=== PATIENT | female | born 1940 | race Caucasian/White ===

== ENCOUNTER 2024-11-03 10:32 | Outpatient (CLI) | payer MEDICARE, SELFPAY ==
--- OUTSIDE RECORDS SUMMARY | 2023-10-29 05:30 | XMS_ITS ---
Author Organization [facility] Address [address] [facility] [address] [facility] [address] [place] [phone] Care Team Providers Care Manufacturing Engineer Name Role Phone Mathieu Chauhan Primary Care Provider [phone] Allergies Allergen (clinical drug ingredient) Drug/Non Drug Allergy documented on EMR Reaction Allergy Type Onset Date Status gabapentin Gabapentin upset stomach Drug Allergy A ctive Results Component Value Reference Range Notes Glucose (In-House) Reviewed date:10/30/2023 08:32:30 AM Interpretation:142 Performing Lab: Notes/Report: 142 blood glucose 142 74 - 106 mg/dL Glycohemoglobin A1c (in hous e) Reviewed date:10/30/2023 08:32:30 AM Interpretation:6.2 Performing Lab: Notes/Report: 6.2 glycohemoglobin 6.2% 5 - 6.5 % P-Comprehensive Metabolic Pa svitlana (CMP) Reviewed date:10/30/2023 08:32:30 AM Interpretation:gluc 100, bun 27, creat 1.16, gfr 47 Performing Lab: Notes/Report: Test performed by [employer] [facility] , [address], [place] [address] Arnulfo Metcalf MD, Library Media Technician CLIA: [id number] Sodium 139 135-145 mEq/L Potassium 4.6 3.5-5.3 mEq/L Chloride 103 97-108 mEq/L CO2 25 22-32 mEq/L Glucose 100 65-99 mg/dL BUN 27 8-23 mg/dL Creatinine 1.16 0.50-1.00 mg/dL Calcium 9.4 8.6-10.4 mg/dL eGFR by Creatinine 47 >59 mL/min/1.73m2 Protein 6.9 6.0-8.3 g/dL Albumin 4.5 3.5-5.3 g/dL Alkaline Phosphatase 78 35-121 IU/L ALT (SGPT) 31 <5-47 IU/L AST (SGOT) 27 <5-40 IU/L Bilirubin, Total 0.3 <0.2-1.2 mg/dL A/G Ratio 1.9 1.1-2.5 mg/dL P-Lipid Panel Reviewed date:10/30/2023 08:32:30 AM Interpretation:Normal Performing Lab: Notes/Report: Test performed by [employer] [address] [place] [address] , [facility], [place] [address] Arnulfo Metcalf MD, Library Media Technician CLIA: [id number] Cholesterol 130 <200 mg/dL Triglycerides 96 <150 mg/dL HDL Cholesterol 73 >39 mg/dL Cholesterol / HDL Ratio 1.78 0.00-4.44 Ratio Non-HDL Cholesterol 57 <130 mg/dL LDL Cholesterol (Calculation) 38 <130 mg/dL LDL Cholesterol Levels* Less than 100 mg/dL Optimal 100 to 129 mg/dL Near Optimal/ Above Optimal 130 to 159 mg/dL Borderline High 160 to 189 mg/dL High 190 mg/dL and above Very High * Categories as recommended by the 2004 ATPIII guidelines LDL/HDL Ratio 0.5 <3.3 Ratio LDL Cholesterol Patient History Test Date: 04/29/2023 LDL Results: 34 Units: mg/dL % Change: - Test Date: 10/29/2023 LDL Results: 38 Units: mg/dL % Change: +11% REASON FOR VISIT 6 months Medications Medication SIG (Take, Route, Frequency, Duration) Notes Start Date End Date Status Potassium Chloride ER 10 MEQ TAKE 1 TABLET 3 TIMES A DAY for 90 days Active Vitamin C 1000 MG 1 tab(s) orally once a day for 30 day(s) Active traMADol HCl 50 MG 2 tab(s) orally thre e times daily Active ZyrTEC Allergy 10 MG 1 tab(s) orally onc e a day Active Vitamin D3 125 MCG (5000 UT) as directed orally once a week Active Tylenol 8 Hour 650 MG 2 tablets as neede d Orally every 8 hrs Active Ocuvite Adult 50+ - as directed Orally Active Lisinopril-hydroCHLOROthiaz cristy 20-12.5 MG TAKE 2 TABLETS ONCE DAILY for 90 days Active amLODIPine Besylate 5 MG TAKE 1 TABLET O NCE DAILY for 90 days Active Atorvastatin Calcium 20 MG TAKE 1 TABLET ONCE DAILY for 90 days Active metFORMIN HCl 500 MG 1 tab(s) orally 2 t imes a day for 90 days Active Vital Signs Blood pressure systolic 132 mm Hg 10/29/19 24 Blood pressure diastolic 82 mm Hg 024 Heart Rate 70 /min 10/29/2023 Height 65.50 in 10/29/2023 Weight 177.4 lbs 10/29/2023 BMI 29.07 kg/m2 10/29/2023 Encounters Encounter Location Date Provider Diagnosis Jonathan [address] [facility] [address] [place] [id number] 10/29/2023 Mathieu Chauhan Type 2 diabetes jae itus without complication, without long-term current use of insulin E11.9 ; Essential hypertension I10 ; Pure hypercholesterolemia E78.00 and Hypokalemia E87.6 Assessments Encounter Date Diagnosis (ICD Code) Assessment Notes Treatment Notes Treatment Clinical Notes Section Notes 10/29/2023 Type 2 diabetes jae itus without complication, without long-term current use of insulin (ICD-10 - E11.9) 10/29/2023 Essential hypertensi on (ICD-10 - I10) 10/29/2023 Pure hypercholesterolemia (ICD-10 - E78.00) 10/29/2023 Hypokalemia (ICD-10 - E87.6) Plan Of Treatment Medication Medication Name Sig Start Date Stop Date Notes Potassium Chloride ER 10 MEQ TAKE 1 TABL ET 3 TIMES A DAY for 90 days Lisinopril-hydroCHLOROthiazi de 20-12.5 MG TAKE 2 TABLETS ONCE DAILY for 90 days amLODIPine Besylate 5 MG TAKE 1 TABLET O NCE DAILY for 90 days Atorvastatin Calcium 20 MG TAKE 1 TABLET ONCE DAILY for 90 days metFORMIN HCl 500 MG 1 tab(s) orally 2 t imes a day for 90 days Next Appt Details Follow Up: 6 Months, Reason: Provider Name:Mathieu rhodes, 11/03/2024 10:00:00 AM, [address] [place] [address], [address], [place], [place], [id number], Provider Name:Mathieu rhodes, 05/05/2025 10:30:00 AM, [address] [place] [address] [address] [facility], [address], [place], [place], [phone], Progress Notes * Collette BLACKMANDOB:1940 (83 yo F)Acc No.[id number]:10/29/2023 Progress Notes Patient: Colletet Priest EA Provider: Lou Chauhan M.D. :1940 A ge:82 Y S ex:Female Date:10/29/2023 Address:[address] [place], [place] [id number] Subjective: * Chief Complaints: * 1 . 6 months. * HPI: C ardiology: 82 year old female presents with c/o Blood Pressure Elevated?Pt here for 6 mo f/u on hypertension, states she is doing well and does not have any concerns.? c/o Hyperlipidemia p t is fasting today. E ndocrinology: c/o Recent Blood Sugars P t here to f/u on DM 2. * ROS: D ERMATOLOGY: no R donn. n o H arlene. G ASTROENTEROLOGY: no N ausea. n o V omiting. U ROLOGY: no D ifficulty urinating. n o B lood in urine. 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 Jolley - [facility] [place], Hypertension, Hyperlipidemia, Diabetes Type 2, Seasonal Allergies, Arthritis, multiple joints, Anxiety disorder, Multiple right humerus fractures due to Lymphoma, s/p multiple surgical procedures. * Surgical History: T onsillectomy , Hysterectomy , Bilateral Cataract Repair - YAG Laser , RT Shoulder Replacement , RT Arm Lymphoma x3 . * Hospitalization/Major Diagno stic Procedure: D enies Past Hospitalization. * Family History: F ather: , diagnosed with Heart Disease, Cancer. M other: , diagnosed with Hypertension, Stroke. C hilcindy: alive. 2 daughter(s) . . * Social History: C URRENT TOBACCO USE: No . C affeine: Coffee, Iced Tea. Past smoking status: never smoked. * Medications: T aking Ocuvite Adult 50+ - Capsule as directed Orally , Taking Tylenol 8 Hour 650 MG Tablet Extended Release 2 tablets as needed Orally every 8 hrs , Taking ZyrTEC Allergy 10 MG Tablet 1 tab(s) orally once a day , Taking Vitamin D3 125 MCG (5000 UT) Capsule as directed orally once a week , Taking Vitamin C 1000 MG Tablet 1 tab(s) orally once a day , Taking traMADol HCl 50 MG Tablet 2 tab(s) orally three times daily , Taking Atorvastatin Calcium 20 MG Tablet TAKE 1 TABLET ONCE DAILY , Taking Lisinopril-hydroCHLOROthiazide 20-12.5 MG Tablet TAKE 2 TABLETS ONCE DAILY , Taking amLODIPine Besylate 5 MG Tablet TAKE 1 TABLET ONCE DAILY , Taking Potassium Chloride ER 10 MEQ Tablet Extended Release TAKE 1 TABLET 3 TIMES A DAY , Taking metFORMIN HCl 500 MG Tablet 1 tab(s) orally 2 times a day , Medication List reviewed and reconciled with the patient * Allergies: G abapentin: upset stomach. Objective: * Vitals: W t:177.4, Temp:97.8, BP:132/82, HR:70, Nurse:fern, Ht: 65.50, BMI:29.07. * Examination: E ndocrinology: General Appearance: N AD, using a cane to assist with ambulation. Heart: R SR. Lungs: c lear to auscultation. Extremities: n o leg edema. Skin: n ormal, no rash. Assessment: * Assessment: 1. T ype 2 diabetes mellitus without complication, without long-term current use of insulin - E11.9 (Primary) 2 . E ssential hypertension - I10 3 . P ure hypercholesterolemia - E78.00 4 . H ypokalemia - E87.6 Plan: * Treatment: Value Reference Range A /G Ratio 1.9 1.1-2.5 - mg/dL * A lbumin 4.5 3.5-5.3 - g/dL * A lkaline Phosphatase 78 35-121 - IU/L * A LT (SGPT) 31 <5-47 - IU/L * A ST (SGOT) 27 <5-40 - IU/L * B ilirubin, Total 0.3 <0.2-1.2 - mg/dL * B UN 27 H 8-23 - mg/dL * C alcium 9.4 8.6-10.4 - mg/dL * C hloride 103 97-108 - mEq/L * C O2 25 22-32 - mEq/L * C reatinine 1.16 H 0.50-1.00 - mg/dL * G lucose 100 H 65-99 - mg/dL * P otassium 4.6 3.5-5.3 - mEq/L * S odium 139 135-145 - mEq/L * P rotein 6.9 6.0-8.3 - g/dL * e GFR by Creatinine 47 L >59 - mL/min/1.73m2 * Tricia Mayberry 10/30/2023 8:31: 42 AM >See phone encounter ?LAB: Glucose (In-House) (Collection Date & Time - 10/29/2023)?142* Value Reference Range b lood glucose 142 74 - 106 mg/dL * Ping Sparks 10/29/2023 10:1 8:40 AM > Tricia Mayberry 10/30/2023 8:31:42 AM >See phone encounter ?LAB: Glycohemoglobin A1c (in house) (Collection Date & Time - 10/29/2023)? 6.2* Value Reference Range g lycohemoglobin 6.2% 5 - 6.5 % * Ping Sparks 10/29/2023 10:1 8:56 AM > Tricia Mayberry 10/30/2023 8:31:42 AM >See phone encounter 2.?Essential hypertension? Refill Lisinopril-hydroCHLOROthiazide Tablet, 20-12.5 MG, TAKE 2 TABLETS ONCE DAILY, 90 days, 180 Tablet, Refills 1;?Refill amLODIPine Besylate Tablet, 5 MG, TAKE 1 TABLET ONCE DAILY, 90 days, 90 Tablet, Refills 1.?LAB: P-Comprehensive Metabolic Panel (CMP) (Collection Date & Time - 10/29/2023 09:10 AM)?gluc 100, bun 27, creat 1.16, gfr 47* Value Reference Range A /G Ratio 1.9 1.1-2.5 - mg/dL * A lbumin 4.5 3.5-5.3 - g/dL * A lkaline Phosphatase 78 35-121 - IU/L * A LT (SGPT) 31 <5-47 - IU/L * A ST (SGOT) 27 <5-40 - IU/L * B ilirubin, Total 0.3 <0.2-1.2 - mg/dL * B UN 27 H 8-23 - mg/dL * C alcium 9.4 8.6-10.4 - mg/dL * C hloride 103 97-108 - mEq/L * C O2 25 22-32 - mEq/L * C reatinine 1.16 H 0.50-1.00 - mg/dL * G lucose 100 H 65-99 - mg/dL * P otassium 4.6 3.5-5.3 - mEq/L * S odium 139 135-145 - mEq/L * P rotein 6.9 6.0-8.3 - g/dL * e GFR by Creatinine 47 L >59 - mL/min/1.73m2 * Tricia Mayberry 10/30/2023 8:31: 42 AM >See phone encounter 3.?Pure hypercholesterolemia? Refill Atorvastatin Calcium Tablet, 20 MG, TAKE 1 TABLET ONCE DAILY, 90 days, 90 Tablet, Refills 1. ?LAB: P-Comprehensive Metabolic Panel (CMP) (Collection Date & Time - 10/29/2023 09:10 AM)?gluc 100, bun 27, creat 1.16, gfr 47* Value Reference Range A /G Ratio 1.9 1.1-2.5 - mg/dL * A lbumin 4.5 3.5-5.3 - g/dL * A lkaline Phosphatase 78 35-121 - IU/L * A LT (SGPT) 31 <5-47 - IU/L * A ST (SGOT) 27 <5-40 - IU/L * B ilirubin, Total 0.3 <0.2-1.2 - mg/dL * B UN 27 H 8-23 - mg/dL * C alcium 9.4 8.6-10.4 - mg/dL * C hloride 103 97-108 - mEq/L * C O2 25 22-32 - mEq/L * C reatinine 1.16 H 0.50-1.00 - mg/dL * G lucose 100 H 65-99 - mg/dL * P otassium 4.6 3.5-5.3 - mEq/L * S odium 139 135-145 - mEq/L * P rotein 6.9 6.0-8.3 - g/dL * e GFR by Creatinine 47 L >59 - mL/min/1.73m2 * Tricia Mayberry 10/30/2023 8:31: 42 AM >See phone encounter ?LAB: P-Lipid Panel (Collection Date & Time - 10/29/2023 09:10 AM)?Normal* Value Reference Range C holesterol / HDL Ratio 1.78 0.00-4.44 - Ratio * C holesterol 130 <200 - mg/dL * H DL Cholesterol 73 >39 - mg/dL * L DL Cholesterol (Calculation) 38 <130 - mg/d L * L DL/HDL Ratio 0.5 <3.3 - Ratio * N on-HDL Cholesterol 57 <130 - mg/dL * T riglycerides 96 <150 - mg/dL * Tricia Mayberry 10/30/2023 8:31: 42 AM >See phone encounter 4.?Hypokalemia? Refill Potassium Chloride ER Tablet Extended Release, 10 MEQ, TAKE 1 TABLET 3 TIMES A DAY, 90 days,270 Tablet, Refills 1.?LAB: P-Comprehensive Metabolic Panel (CMP) (Collection Date & Time - 10/29/2023 09:10 AM)?gluc 100, bun 27, creat 1.16, gfr 47* Value Reference Range A /G Ratio 1.9 1.1-2.5 - mg/dL * A lbumin 4.5 3.5-5.3 - g/dL * A lkaline Phosphatase 78 35-121 - IU/L * A LT (SGPT) 31 <5-47 - IU/L * A ST (SGOT) 27 <5-40 - IU/L * B ilirubin, Total 0.3 <0.2-1.2 - mg/dL * B UN 27 H 8-23 - mg/dL * C alcium 9.4 8.6-10.4 - mg/dL * C hloride 103 97-108 - mEq/L * C O2 25 22-32 - mEq/L * C reatinine 1.16 H 0.50-1.00 - mg/dL * G lucose 100 H 65-99 - mg/dL * P otassium 4.6 3.5-5.3 - mEq/L * S odium 139 135-145 - mEq/L * P rotein 6.9 6.0-8.3 - g/dL * e GFR by Creatinine 47 L >59 - mL/min/1.73m2 * Tricia Mayberry 10/30/2023 8:31: 42 AM >See phone encounter * Procedure Codes: G 2211 Complex e/[place], [address] GLUCOSE TEST, 64013 GLYCATED HEMOGLOBIN TEST, Modifiers: QW * Follow Up: 6 Months * Billing Information: * Visit Code: 13241 Office Visit, Est Pt., Level 4. * Procedure Codes: G2211 Complex e/[place]. [address] GLUCOSE TEST. 10210 GLYCATED HEMOGLOBIN TEST. Modifiers: QW * Electronic signature of Katie Chauhan MD on 11/03/2024 at 10:43 AM EDT Sign off status: Pending * Provider: Lou Chauhan M.D. Date: 0 10/29/2023 Generated for Miky saeed/Oziel/Bertram on: 0 11/03/2024 10:43 AM EDT History and Physical Notes * HPI (History of Present Illness) Category Sub-Category Detail Notes Category Not es Endocrinology Recent Blood Sugars Pt here to f/u on DM 2 Cardiology Blood Pressure Elevated Pt here for 6 mo f/u on hypertension, states she is doing well and does not have any concerns Hyperlipidemia pt is fasting today Examination Category Sub-Category Detail Notes Category Not es Endocrinology Heart: RSR Lungs: clear to auscultatio n Extremities: no leg edema General Appearance: NAD, using a cane to assist with ambulation Skin: normal, no rash
--- OUTSIDE RECORDS SUMMARY | 2024-04-30 06:15 | XMS_ITS ---
[facility] [address] [facility] [address] [facility] [address] [place] [id number] Care Team Providers Care Enterprise Account Manager Name Role Phone Mathieu Chauhan Primary Care Provider Allergies Allergen (clinical drug ingredient) Drug/Non Drug Allergy documented on EMR Reaction Allergy Type Onset Date Status gabapentin Gabapentin upset stomach Drug Allergy A ctive Results Component Value Reference Range Notes Glucose (In-House) Reviewed date:05/05/2024 09:00:25 AM Interpretation:128 Performing Lab: Notes/Report: 128 blood glucose 128 74 - 106 mg/dL Glycohemoglobin A1c (in hous e) Reviewed date:05/05/2024 09:00:25 AM Interpretation:6.4 Performing Lab: Notes/Report: 6.4 glycohemoglobin 6.4% 5 - 6.5 % P-Comprehensive Metabolic Pa svitlana (CMP) Reviewed date:05/05/2024 09:00:25 AM Interpretation:Cr 1.11, gfr 50 Performing Lab: Notes/Report: Test performed by [employer] [address] [place] [address] , [address], [place] [address] Arnulof Metcalf MD, [employer] CLIA: [id number] Sodium 137 135-145 mmol/L Potassium 4.5 3.5-5.3 mmol/L Chloride 101 97-108 mmol/L CO2 26 22-32 mmol/L Glucose 96 65-99 mg/dL BUN 21 8-23 mg/dL Creatinine 1.11 0.50-1.00 mg/dL Calcium 9.6 8.6-10.4 mg/dL eGFR by Creatinine 50 >59 mL/min/1.73m2 Protein 7.2 6.0-8.3 g/dL Albumin 4.3 3.5-5.3 g/dL Alkaline Phosphatase 76 35-121 IU/L ALT (SGPT) 26 <5-47 IU/L AST (SGOT) 19 <5-40 IU/L Bilirubin, Total 0.3 <0.2-1.2 mg/dL A/G Ratio 1.5 1.1-2.5 P-Lipid Panel Reviewed date:05/05/2024 09:00:25 AM Interpretation: Normal Performing Lab: Notes/Report: Test performed by [facility] [facility] [address] [place] [address] , [address], [place] [address] Arnulfo Metcalf MD, [employer] CLIA: [id number] Cholesterol 121 <200 mg/dL Triglycerides 121 <150 mg/dL HDL Cholesterol 72 >39 mg/dL Cholesterol / HDL Ratio 1.68 0.00-4.44 Ratio Non-HDL Cholesterol 49 <130 mg/dL LDL Cholesterol (Calculation) 25 <130 mg/dL LDL Cholesterol Levels* Less than 100 mg/dL Optimal 100 to 129 mg/dL Near Optimal/ Above Optimal 130 to 159 mg/dL Borderline High 160 to 189 mg/dL High 190 mg/dL and above Very High * Categories as recommended by the 2004 ATPIII guidelines LDL/HDL Ratio 0.3 <3.3 Ratio LDL Cholesterol Patient History Test Date: 04/29/2023 LDL Results: 34 Units: mg/dL % Change: - Test Date: 10/29/2023 LDL Results: 38 Units: mg/dL % Change: +11% Test Date: 04/30/2024 LDL Results: 25 Units: mg/dL % Change: -34% P-TSH reflex to FT4 Reviewed date:05/05/2024 09:00:25 AM Interpretation: Normal Performing Lab: Notes/Report: Test performed by [facility] [facility] [address] [place] [address] , [address], [place] [address] Arnulfo Metcalf MD, [employer] CLIA: [id number] TSH reflex to FT4 1.37 0.43-5.25 mU/L P-Microalbumin/Creatinine, R andom Urine Sample Reviewed date:05/05/2024 09:00:25 AM Interpretation:a/c 30 Performing Lab: Notes/Report: Test performed by [employer] [address] [place] [address] , [address], [place] [address] Arnulfo Metcalf MD, [employer] CLIA: [id number] Albumin/Creatinine Ratio, Urine 30 0-30 ug/m g Microalbumin, Urine, Random 1.1 Creatinine, Urine 36.4 REASON FOR VISIT 6 months Medications Medication SIG (Take, Route, Frequency, Duration) Notes Start Date End Date Status traMADol HCl 50 MG 2 tab(s) orally thre e times daily Active Vitamin C 1000 MG 1 tab(s) orally once a day for 30 day(s) Active Lisinopril-hydroCHLOROthiaz cristy 20-12.5 MG TAKE 2 TABLETS ONCE DAILY for 90 days Active Atorvastatin Calcium 20 MG TAKE 1 TABLET ONCE DAILY for 90 days Active metFORMIN HCl 500 MG 1 tab(s) orally 2 t imes a day for 90 days Active Vitamin D3 125 MCG (5000 UT) as directed orally once a week Active Potassium Chloride ER 10 MEQ TAKE 1 TABLET 3 TIMES A DAY for 90 days Active ZyrTEC Allergy 10 MG 1 tab(s) orally onc e a day Active Tylenol 8 Hour 650 MG 2 tablets as neede d Orally every 8 hrs Active Ocuvite Adult 50+ - as directed Orally Active amLODIPine Besylate 5 MG TAKE 1 TABLET O NCE DAILY for 90 days Active Vital Signs Blood pressure systolic 128 mm Hg 04/30/20 24 Blood pressure diastolic 82 mm Hg 024 Heart Rate 78 /min 04/30/2024 Height 65.50 in 04/30/2024 Weight 177.4 lbs 04/30/2024 BMI 29.07 kg/m2 04/30/2024 Encounters Encounter Location Date Provider Diagnosis [facility] [address] [facility] [address] [place], [place] [id number] 04/30/2024 Mathieu Chauhan Type 2 diabetes jae itus without complication, without long-term current use of insulin E11.9 ; Essential hypertension I10 ; Pure hypercholesterolemia E78.00 ; Allergic rhinitis, unspecified seasonality, unspecified trigger J30.9 and Hypokalemia E87.6 Assessments Encounter Date Diagnosis (ICD Code) Assessment Notes Treatment Notes Treatment Clinical Notes Section Notes 04/30/2024 Type 2 diabetes jae itus without complication, without long-term current use of insulin (ICD-10 - E11.9) 04/30/2024 Essential hypertensi on (ICD-10 - I10) 04/30/2024 Pure hypercholesterolemia (ICD-10 - E78.00) 04/30/2024 Allergic rhinitis, unspecified seasonality, unspecified trigger (ICD-10 - J30.9) 04/30/2024 Hypokalemia (ICD-10 - E87.6) Plan Of Treatment Medication Medication Name Sig Start Date Stop Date Notes Lisinopril-hydroCHLOROthiazi de 20-12.5 MG TAKE 2 TABLETS ONCE DAILY for 90 days Atorvastatin Calcium 20 MG TAKE 1 TABLET ONCE DAILY for 90 days metFORMIN HCl 500 MG 1 tab(s) orally 2 t imes a day for 90 days Potassium Chloride ER 10 MEQ TAKE 1 TABL ET 3 TIMES A DAY for 90 days amLODIPine Besylate 5 MG TAKE 1 TABLET O NCE DAILY for 90 days Next Appt Details Follow Up: 6 Months, Reason: Provider Name:Mathieu Torres meagan, 11/03/2024 10:00:00 AM, [address] [facility] [address], [address], [place], [place], [id number], Provider Name:Mathieu Torres meagan, 05/05/2025 10:30:00 AM, [address] [facility] [address] [facility], [address], [place], [place], [id number], Progress Notes * Collette BLACKMANDOB:1940 (83 yo F)Acc No.[id number]:04/30/2024 Progress Notes Patient: Collette Priest EA Provider: Lou Chauhan M.D. :1940 A ge:83 Y S ex:Female Date:04/30/2024 Address:[address] [place] [address] Subjective: * Chief Complaints: * 1 . 6 months. * HPI: C ardiology: 83 year old female presents with c/o Blood Pressure Elevated?Pt here for 6 mo f/u on hypertension, states she is doing well and does not have any concerns.? c/o Hyperlipidemia P t is fasting today. E ndocrinology: c/o Recent Blood Sugars P t here to f/u on DM 2, pt states that she does not check blood sugar at home. * ROS: D ERMATOLOGY: no R donn. n o H arlene. G ASTROENTEROLOGY: no N ausea. n o V omiting. U ROLOGY: no D ifficulty urinating. n o B lood in urine. 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 Jolley - [facility] [place], Hypertension, Hyperlipidemia, Diabetes Type 2, Seasonal [...] tab(s) orally three times daily , Taking metFORMIN HCl 500 MG Tablet 1 tab(s) orally 2 times a day , Taking Atorvastatin Calcium 20 MG Tablet TAKE 1 TABLET ONCE DAILY , Taking Lisinopril-hydroCHLOROthiazide 20-12.5 MG Tablet TAKE 2 TABLETS ONCE DAILY , Taking amLODIPine Besylate 5 MG Tablet TAKE 1 TABLET ONCE DAILY , Taking Potassium Chloride ER 10 MEQ Tablet Extended Release TAKE 1 TABLET 3 TIMES A DAY , Medication List reviewed and reconciled with the patient * Allergies: G abapentin: upset stomach. Objective: * Vitals: W t:177.4, Temp:97.7, BP:128/82, HR:78, Nurse:fern, Ht: 65.50, BMI:29.07. * Examination: E [...] P ure hypercholesterolemia - E78.00 4 . A llergic rhinitis, unspecified seasonality, unspecified trigger - J30.9 5 . H ypokalemia - E87.6 Plan: * Treatment: Value Reference Range A /G Ratio 1.5 1.1-2.5 - * A lbumin 4.3 3.5-5.3 - g/dL * A lkaline Phosphatase 76 35-121 - IU/L * A LT (SGPT) 26 <5-47 - IU/L * A ST (SGOT) 19 <5-40 - IU/L * B ilirubin, Total 0.3 <0.2-1.2 - mg/dL * B UN 21 8-23 - mg/dL * C alcium 9.6 8.6-10.4 - mg/dL * C hloride 101 97-108 - mmol/L * C O2 26 22-32 - mmol/L * C reatinine 1.11 H 0.50-1.00 - mg/dL * G lucose 96 65-99 - mg/dL * P otassium 4.5 3.5-5.3 - mmol/L * S odium 137 135-145 - mmol/L * P rotein 7.2 6.0-8.3 - g/dL * e GFR by Creatinine 50 L >59 - mL/min/1.73m2 * Eneida Ellis 05/05/2024 9:00 :21 AM >See phone encounter ?LAB: P-TSH reflex to FT4 (Collection Date & Time - 04/30/2024 11:06 AM)? Normal* Value Reference Range T SH reflex to FT4 1.37 0.43-5.25 - mU/L * Eneida Ellis 05/05/2024 9:00 :21 AM >See phone encounter ?LAB: P-Microalbumin/Creatinine, Random Urine Sample (Collection Date & Time - 04/30/2024 11:06 AM)?a/c 30* Value Reference Range A lbumin/Creatinine Ratio, Urine 30 H 0-30 - ug /mg * C reatinine, Urine 36.4 - mg/dL * M icroalbumin, Urine, Random 1.1 - mg/dL * Eneida Ellis 05/05/2024 9:00 :21 AM >See phone encounter ?LAB: Glucose (In-House) (Collection Date & Time - 04/30/2024)?128* Value Reference Range b lood glucose 128 74 - 106 mg/dL * Diandra Be 04/30/2024 1:30:21 PM > CalebEneida 05/05/2024 9:00:21 AM >See phone encounter ?LAB: Glycohemoglobin A1c (in house) (Collection Date & Time - 04/30/2024)? 6.4* Value Reference Range g lycohemoglobin 6.4% 5 - 6.5 % * Diandra Be 04/30/2024 1:31:48 PM > Eneida Ellis 05/05/2024 9:00:21 AM >See phone encounter 2.?Essential hypertension? Refill Lisinopril-hydroCHLOROthiazide Tablet, 20-12.5 MG, TAKE 2 TABLETS ONCE DAILY, 90 days, 180 Tablet, Refills 1;?Refill amLODIPine Besylate Tablet, 5 MG, TAKE 1 TABLET ONCE DAILY, 90 days, 90 Tablet, Refills 1.?LAB: P-Comprehensive Metabolic Panel (CMP) (Collection Date & Time - 04/30/2024 11:06 AM)?Cr 1.11, gfr 50* Value Reference Range A /G Ratio 1.5 1.1-2.5 - * A lbumin 4.3 3.5-5.3 - g/dL * A lkaline Phosphatase 76 35-121 - IU/L * A LT (SGPT) 26 <5-47 - IU/L * A ST (SGOT) 19 <5-40 - IU/L * B ilirubin, Total 0.3 <0.2-1.2 - mg/dL * B UN 21 8-23 - mg/dL * C alcium 9.6 8.6-10.4 - mg/dL * C hloride 101 97-108 - mmol/L * C O2 26 22-32 - mmol/L * C reatinine 1.11 H 0.50-1.00 - mg/dL * G lucose 96 65-99 - mg/dL * P otassium 4.5 3.5-5.3 - mmol/L * S odium 137 135-145 - mmol/L * P rotein 7.2 6.0-8.3 - g/dL * e GFR by Creatinine 50 L >59 - mL/min/1.73m2 * Eneida Ellis 05/05/2024 9:00 :21 AM >See phone encounter 3.?Pure hypercholesterolemia? Refill Atorvastatin Calcium Tablet, 20 MG, TAKE 1 TABLET ONCE DAILY, 90 days, 90 Tablet, Refills 1. ?LAB: P-Comprehensive Metabolic Panel (CMP) (Collection Date & Time - 04/30/2024 11:06 AM)?Cr 1.11, gfr 50* Value Reference Range A /G Ratio 1.5 1.1-2.5 - * A lbumin 4.3 3.5-5.3 - g/dL * A lkaline Phosphatase 76 35-121 - IU/L * A LT (SGPT) 26 <5-47 - IU/L * A ST (SGOT) 19 <5-40 - IU/L * B ilirubin, Total 0.3 <0.2-1.2 - mg/dL * B UN 21 8-23 - mg/dL * C alcium 9.6 8.6-10.4 - mg/dL * C hloride 101 97-108 - mmol/L * C O2 26 22-32 - mmol/L * C reatinine 1.11 H 0.50-1.00 - mg/dL * G lucose 96 65-99 - mg/dL * P otassium 4.5 3.5-5.3 - mmol/L * S odium 137 135-145 - mmol/L * P rotein 7.2 6.0-8.3 - g/dL * e GFR by Creatinine 50 L >59 - mL/min/1.73m2 * Eneida Ellis 05/05/2024 9:00 :21 AM >See phone encounter ?LAB: P-Lipid Panel (Collection Date & Time - 04/30/2024 11:06 AM)?Normal* Value Reference Range C holesterol / HDL Ratio 1.68 0.00-4.44 - Ratio * C holesterol 121 <200 - mg/dL * H DL Cholesterol 72 >39 - mg/dL * L DL Cholesterol (Calculation) 25 <130 - mg/d L * L DL/HDL Ratio 0.3 <3.3 - Ratio * N on-HDL Cholesterol 49 <130 - mg/dL * T riglycerides 121 <150 - mg/dL * Eneida Ellis 05/05/2024 9:00 :21 AM >See phone encounter 4.?Hypokalemia? Refill Potassium Chloride ER Tablet Extended Release, 10 MEQ, TAKE 1 TABLET 3 TIMES A DAY, 90 days,270 Tablet, Refills 1.?? * Procedure Codes: G 2211 Complex e/[place], [address] GLUCOSE TEST, 01866 GLYCATED HEMOGLOBIN TEST, Modifiers: QW * Follow Up: 6 Months * Billing Information: * Visit Code: 23340 Office Visit, Est Pt., Level 4. * Procedure Codes: G2211 Complex e/[place]. [address] GLUCOSE TEST. 36979 GLYCATED HEMOGLOBIN TEST. Modifiers: QW * Electronic signature of Katie Chauhan MD on 11/03/2024 at 10:44 AM EDT Sign off status: Pending * Provider: Lou Chauhan M.D. Date: 1 07/01/2023 Generated for Miky saeed/Oziel/Gillianransmitting on: 0 11/03/2024 10:44 AM EDT History and Physical Notes * HPI (History of Present Illness) Category Sub-Category Detail Notes Category Not es Endocrinology Recent Blood Sugars Pt here to f /u on DM 2, pt states that she does not check blood sugar at home Cardiology Blood Pressure Elevated Pt here for 6 mo f/u on hypertension, states she is doing well and does not have any concerns Hyperlipidemia Pt is fasting today Examination Category Sub-Category Detail Notes Category Not es Endocrinology Heart: RSR Lungs: clear to auscultatio n Extremities: no leg edema General Appearance: NAD, using a cane to assist with ambulation Skin: normal, no rash
--- OUTSIDE RECORDS SUMMARY | 2024-11-03 10:43 | XMS_ITS ---
Author Name Interface, [id number] l[employer] Address [address] [place] [address] Organization [facility] Address [address] [place] [address] Care Team Providers Care Database Admin Name Role Phone Vinicio Levy Unavailable Allergies and Adverse Reactions Medication/Group Name Reaction Severity Date gabapentin 01/19/2019 Plan Date Type Value 03/04/2022 APPOINTMENT OV 15 MIN 03/04/2022 APPOINTMENT LAB 15 MIN 02/26/2021 APPOINTMENT Lab 02/26/2021 APPOINTMENT OV 15 MIN 02/26/2021 APPOINTMENT LAB 15 MIN 02/01/2021 APPOINTMENT OV 15 MIN 02/01/2021 APPOINTMENT OV 15 MIN 02/01/2021 APPOINTMENT LAB 15 MIN 02/01/2021 APPOINTMENT 1YR JERRY 02/02/2020 APPOINTMENT 1YR FU AND LAB 02/02/2020 APPOINTMENT 1YR FU AND LAB 02/02/2020 APPOINTMENT RTC 02/02/2020 APPOINTMENT Lab 02/02/2019 APPOINTMENT MD FU 1 Year 02/02/2019 APPOINTMENT FU 1 Year 02/02/2019 APPOINTMENT FU 1 Year 02/02/2019 APPOINTMENT MD LEMUS 1 Year 01/19/2019 APPOINTMENT port flush 11/24/2018 APPOINTMENT port flush 10/13/2018 APPOINTMENT Port Flush 10/13/2018 APPOINTMENT Port Flush 09/22/2018 APPOINTMENT port flush 08/11/2018 APPOINTMENT PORT FLUSH 08/11/2018 APPOINTMENT PORT FLUSH 06/23/2018 APPOINTMENT pf 06/23/2018 APPOINTMENT pf 05/05/2018 APPOINTMENT port flush 05/05/2018 APPOINTMENT port flush 04/28/2018 APPOINTMENT Port Flush 03/17/2018 APPOINTMENT PORT FLUSH 03/17/2018 APPOINTMENT PORT FLUSH 02/03/2018 APPOINTMENT fu (Lizet pt) 02/03/2018 APPOINTMENT fu (Lizet pt) 02/03/2018 APPOINTMENT follow up + pf 02/03/2018 APPOINTMENT follow up + pf 02/03/2018 APPOINTMENT follow up + pf 01/20/2018 APPOINTMENT PORT FLUSH 01/20/2018 APPOINTMENT PORT FLUSH 12/02/2017 APPOINTMENT port flush 10/07/2017 APPOINTMENT port flush 08/13/2017 APPOINTMENT port flush 08/13/2017 APPOINTMENT 1 YR F/Babita 08/13/2017 APPOINTMENT 1 YR MD Nagy/Babita 08/12/2017 APPOINTMENT PORT FLUSH 08/12/2017 LABORDER CMP 08/12/2017 LABORDER Hgb A1c 08/12/2017 LABORDER Lipid panel 01/09/[address] chest/abdomen /pelvis w/ contrast 01/13/2018 LABORDER CMP 02/03/2018 LABORDER CBC w/ auto diff 02/12/2018 LABORDER CBC w/ auto diff 02/12/2018 LABORDER CMP 03/17/2018 LABORDER CMP 03/17/2018 LABORDER LDH 03/17/2018 LABORDER CBC w/ auto diff 02/02/2019 LABORDER LDH 02/02/2019 LABORDER CBC w/ auto diff 02/02/2019 LABORDER CMP 02/02/2020 LABORDER LDH 02/02/2020 LABORDER LDH 02/02/2020 LABORDER CBC w/ auto diff 02/02/2020 LABORDER CMP - Core Lab 02/02/2020 LABORDER CBC w/ auto diff 02/02/2020 LABORDER CMP 02/26/2021 LABORDER CBC w/ auto diff 02/26/2021 LABORDER CMP - Core Lab 02/26/2021 LABORDER LDH 03/04/2022 LABORDER CMP - Core Lab 03/04/2022 LABORDER CBC w/ auto diff 03/04/2022 LABORDER LDH Reason for Visit LAB 15 MIN Encounters Date Name 08/12/2017 Diffuse non-Hodgkin' s lymphoma, large cell (disorder) Immunizations Date Name Route Dose Instructions Refusal Reason Stat us Flu vaccine - Adult Diagnostic Results Date Type Test Units Lower Limit Upper Limit Result Flag Comments Status Ordered By Specimen Source Lab Address 08/12 CMP Alkal ine phosp hatas e U/L 42.0 141.0 64 FINAL Vinicio [facility] S&Serum [facility] Lui (AND), [address] [place] [address] 08/12 CMP ALT/S GPT U/L 10.0 47.0 21 FINAL Vinicio [facility] (AND), [address] #[facility] [address] 08/12 CMP AST/S GOT U/L 11.0 38.0 25 FINAL Vinicio [facility] (AND), [address] #[facility] [address] 08/12 CMP Bilir ubin, total MG/DL 0.2 1.6 0.7 FINAL Vinicio [facility] (AND), [address] #[facility] [place] [facility] 08/12 CMP BUN MG/DL 7.0 22.0 16 FINAL Vinicio [facility] (AND), [address] [place] [address] 08/12 CMP Calci um MG/DL 8.0 10.3 8.9 FINAL Vinicio [facility] (AND), [address] [place] [address] 08/12 CMP Chlor cristy mmol/L 98.0 108.0 100 FINAL Vinicio [facility] (AND), [address] #[facility] [place] [address] 08/12 CMP Creat inine MG/DL 0.6 1.2 0.8 FINAL Vinicio [facility] (AND), [address] #[facility] [place] [facility] 08/12 CMP GFR non-A frica n Ameri can, estim ated mL/min /1.73m 2 >60.0 FINAL Vinicio [facility] (AND), [address] [place] [address] 08/12 CMP GFR Afric an Ameri can, estim ated mL/min /1.73m 2 >60.0 FINAL Vinicio [facility] (AND), [address] [facility] [place] [address] 08/12 CMP CO2 mmol/L 18.0 33.0 27 FINAL Vinicio [facility] (AND), [facility] [address] [facility] [place] [address] 08/12 CMP Gluco se MG/DL 73.0 118.0 82 FINAL Vinicio [facility] (AND), [address] [facility] [address] 08/12 CMP Potas sium mmol/L 3.6 5.1 4.1 FINAL Vinicio [facility] (AND), [address] [place] [address] 08/12 CMP Total prote in G/DL 6.4 8.1 7.0 FINAL Vinicio [facility] (AND), [address] [place] [address] 08/12 CMP Sodiu m mmol/L 128.0 145.0 141 FINAL Vinicio [facility] (AND), [address] [place] [address] 08/12 CMP Album in G/DL 3.3 5.5 3.9 FINAL Vinicio [facility] (AND), [address] [place] [address] 08/12 Lipid panel HDL mallika stero l mg/dL 75 Age Range Low Borderlin e Low Acceptabl eChild/Ad ol. <40 mg/dL 40-45 mg/dL >45 mg/dLAdul t <40 mg/dL 40-59 mg/dL >59 mg/dL FINAL Vinicio [facility] [place] [address] 08/12 Lipid panel Mallika stero l mg/dL 118 Age Range Desirable Borderlin e High High RiskChild /Adol. <170 mg/dL 170-199 mg/dL >=200 mg/dLAdul t <200 mg/dL 200-239 mg/dL >=240 mg/dL FINAL Vinicio [facility] [place] [address] 08/12 Lipid panel Trigl yceri cira mg/dL 113 Age Range Acceptabl e Borderlin e High High Very HighChild (2-9Yrs) <75 mg/dL 75-99 mg/dL >=100 mg/dLAdol - 18 Yrs <90 mg/dL 90-129 mg/dL >=130 mg/dLAdul t>18 Yrs <150 mg/dL 150-199 mg/dL 200-499 mg/dL >=500mg/d L FINAL Vinicio [facility] [place] [address] 08/12 Lipid panel LDL mallika stero l, calcu lated mg/dL 20 Age Range Acceptabl e Borderlin e High HighChild /Adol. <110 mg/dL 110-129 mg/dL >=130 mg/dLAdul t <100 mg/dL 100-159 mg/dL >=160mg/d L FINAL Vinicio Cam Serum [facility] [place] [address] 08/12 CBC w/ auto diff WBC 10*3/u L 4.0 10.0 6.6 FINAL Vinicio Cam B&Whole Blood [facility] ([place]), [address] [place] [address] 08/12 CBC w/ auto diff Jennifer # (ANC) 10*3/u L 1.56 6.13 4.39 FINAL Vinicio Cam B&Whole Blood [facility] (AND), [address] #[facility] [address] 08/12 CBC w/ auto diff LY # 10*3/u L 1.18 3.74 1.51 FINAL Vinicio Cam Blake&Whole Blood [facility] (AND), [address] #[facility] [address] 08/12 CBC w/ auto diff MO # 10*3/u L 0.24 0.86 0.49 FINAL Vinicio Cam Blake&Whole Blood [facility] (AND), [address] #[facility] [address] 08/12 CBC w/ auto diff EO # 10*3/u lL 0.04 0.36 0.21 FINAL Vinicio Cam Blake&Whole Blood [facility] (AND), [address] #[facility] [address] 08/12 CBC w/ auto diff BA # 10*3/u L 0.01 0.08 0.03 FINAL Vinicio Cam Blake&Whole Blood [facility] (AND), [address] #[facility] [address] 08/12 CBC w/ auto diff Jennifer % % 34.0 71.1 66.1 FINAL Vinicio Cam Blake&Whole Blood [facility] (AND), [address] #[facility] [place] [address] 08/12 CBC w/ auto diff LY % % 19.3 51.7 22.8 FINAL Vinicio Cam B&Whole Blood [facility] (AND), [address] #[facility] [address] 08/12 CBC w/ auto diff MO % % 4.7 12.5 7.4 FINAL Vinicio Cam B&Whole Blood [facility] (AND), [address] #[facility] [address] 08/12 CBC w/ auto diff EO % % 0.7 5.8 3.2 FINAL Vinicio [facility]&Whole Blood [facility] (AND), [address] [place], [place] [id number] 08/12 CBC w/ auto diff BA % % 0.1 1.2 0.5 FINAL Vinicio [facility]&Whole Blood [facility] (AND), [address] [place] [address] 08/12 CBC w/ auto diff RBC 10*6/u L 3.93 5.22 3.68 Low FINAL Vinicio [facility]&Whole Blood [facility] (AND), [facility] [address] [place] [address] 08/12 CBC w/ auto diff HGB g/dL 11.2 15.7 10.4 Low FINAL Vinicio [facility]&Whole Blood [facility] (AND), [address] [place], [place] [address]e Road [address] [place] [address] 08/12 CBC w/ auto diff HCT % 34.1 44.9 33.1 Low FINAL Vinicio [facility]&Whole Blood [facility] (AND), [address] [place], [place] [address] Road [address] [place] [address] 08/12 CBC w/ auto diff MCV fL 79.4 94.8 89.9 FINAL Vinicio [facility]&Whole Blood [facility] (AND), [facility] [address] [place] [address] 08/12 CBC w/ auto diff MCH pg 25.6 32.2 28.3 FINAL Vinicio [facility]&Whole Blood [facility] (AND), [facility] [address] [place], [place] [id number] 08/12 CBC w/ auto diff MCHC g/dL 32.2 35.5 31.4 Low FINAL Vinicio [facility]&Whole Blood [facility] (AND), [facility] [address] [place], [place] [address] 08/12 CBC w/ auto diff RDW-C V, % % 11.7 14.4 13.7 FINAL Vinicio [facility]&Whole Blood [facility] (AND), [facility] [address] [place], [place] [address] 08/12 CBC w/ auto diff PLT 10*3/u L 182.0 369.0 229.0 FINAL Vinicio [facility]&Whole Blood [facility] (AND), [facility] [address] [place], [place] [id number] 08/12 Hgb A1c % 6.0 FINAL Vinicio [facility] Blood [facility] [place] [address] 01/19 Lab Repor t See machine tender d 02/03 CBC w/ auto diff WBC 10*3/u L 4.0 10.0 6.5 FINAL Vinicio Levy B&Whole Blood [facility] (AND), [address] [place] [address] 02/03 CBC w/ auto diff Jennifer # (ANC) 10*3/u L 1.56 6.13 4.48 FINAL Vinicio Cam B&Whole Blood [facility] (AND), [address] [place] [address] 02/03 CBC w/ auto diff LY # 10*3/u L 1.18 3.74 1.23 FINAL Vinicio Cam Blake&Whole Blood [facility] (AND), [address] [place] [address] 02/03 CBC w/ auto diff MO # 10*3/u L 0.24 0.86 0.47 FINAL Vinicio Cam Blake&Whole Blood [facility] (AND), [address] [place] [address] 02/03 CBC w/ auto diff EO # 10*3/u lL 0.04 0.36 0.25 FINAL Vinicio Cam Blake&Whole Blood [facility] (AND), [address] [place] [address] 02/03 CBC w/ auto diff BA # 10*3/u L 0.01 0.08 0.04 FINAL Vinicio Cam B&Whole Blood [facility] (AND), [address] [place] [address] 02/03 CBC w/ auto diff Jennifer % % 34.0 71.1 69.2 FINAL Vinicio Cam Blake&Whole Blood [facility] (AND), [address] [place], [place] [id number] 02/03 CBC w/ auto diff LY % % 19.3 51.7 19.0 Low FINAL Vinicio Levy B&Whole Blood [facility] (AND), [address] [place] [address] 02/03 CBC w/ auto diff MO % % 4.7 12.5 7.3 FINAL Vinicio Levy B&Whole Blood [facility] (AND), [address] [place], [place] [id number] 02/03 CBC w/ auto diff EO % % 0.7 5.8 3.9 FINAL Vinicio Cam B&Whole Blood [facility] (AND), [address] [place] [address] 02/03 CBC w/ auto diff BA % % 0.1 1.2 0.6 FINAL Vinicio [facility]&Whole Blood [facility] (AND), [address] [place] [address] 02/03 CBC w/ auto diff RBC 10*6/u L 3.93 5.22 4.20 FINAL Vinicio [facility]&Whole Blood [facility] (AND), [facility] [address] [place] [address] 02/03 CBC w/ auto diff HGB g/dL 11.2 15.7 11.9 FINAL Vinicio [facility]&Whole Blood [facility] (AND), [facility] [address] [place] [address] 02/03 CBC w/ auto diff HCT % 34.1 44.9 38.1 FINAL Vinicio [facility]&Whole Blood [facility] (AND), [facility] [address] [place] [address] 02/03 CBC w/ auto diff MCV fL 79.4 94.8 90.7 FINAL Vinicio [facility]&Whole Blood [facility] (AND), [facility] [address] [place] [address] 02/03 CBC w/ auto diff MCH pg 25.6 32.2 28.3 FINAL Vinicio [facility]&Whole Blood [facility] (AND), [facility] [address] [place] [address] 02/03 CBC w/ auto diff MCHC g/dL 32.2 35.5 31.2 Low FINAL Vinicio [facility]&Whole Blood [facility] (AND), [facility] [address] [place] [address] 02/03 CBC w/ auto diff RDW-C V, % % 11.7 14.4 14.1 FINAL Vinicio [facility]&Whole Blood [facility] (AND), [facility] [address] [place] [address] 02/03 CBC w/ auto diff PLT 10*3/u L 182.0 369.0 173.0 Low FINAL Vinicio [facility]&Whole Blood [facility] (AND), [facility] [address] [place] [address] 03/17 Lab Repor t See machine tender d 02/02 CBC w/ auto diff WBC 10*3/u L 4.0 10.0 5.9 FINAL Vinicio [facility]&Whole Blood [facility] ([facility]), [address] [place], [address] [place] [address] 02/02 CBC w/ auto diff Jennifer # (ANC) 10*3/u L 1.56 6.13 3.82 FINAL Vinicio Levy B&Whole Blood [facility] ([facility]), [address] [place], [address] [place] [address] 02/02 CBC w/ auto diff LY # 10*3/u L 1.18 3.74 1.33 FINAL Vinicio Levy B&Whole Blood [facility] ([facility]), [address] [place], [address] [place] [address] 02/02 CBC w/ auto diff MO # 10*3/u L 0.24 0.86 0.45 FINAL Vinicio Levy B&Whole Blood [facility] ([facility]GT), [address] [place], [address] [place] [address] 02/02 CBC w/ auto diff EO # 10*3/u lL 0.04 0.36 0.28 FINAL Vinicio Levy B&Whole Blood [facility] (EGT), [address] [place], [address] [place] [address] 02/02 CBC w/ auto diff BA # 10*3/u L 0.01 0.08 0.02 FINAL Vinicio Levy B&Whole Blood [facility] (EGT), [address] [place], [address] [place] [address] 02/02 CBC w/ auto diff Jennifer % % 34.0 71.1 64.9 FINAL Vinicio Levy B&Whole Blood [facility] ([facility]), [address] [place], [address] [place] [address] 02/02 CBC w/ auto diff LY % % 19.3 51.7 22.5 FINAL Vinicio Levy B&Whole Blood [facility] ([facility]), [address] [place], [address] [place] [address] 02/02 CBC w/ auto diff MO % % 4.7 12.5 7.6 FINAL Vinicio Levy B&Whole Blood [facility] (EGT), [address] [place], [address] [place] [address] 02/02 CBC w/ auto diff EO % % 0.7 5.8 4.7 FINAL Vinicio Levy B&Whole Blood [facility] ([facility]GT), [address] [place], [address] [place] [address] 02/02 CBC w/ auto diff BA % % 0.1 1.2 0.3 FINAL [facility] B&Whole Blood [facility] (T), [address] [place], [address] [place] [address] 02/02 CBC w/ auto diff RBC 10*6/u L 3.93 5.22 4.11 FINAL [facility] B&Whole Blood [facility] (T), [address] [place], [address] [place] [address] 02/02 CBC w/ auto diff HGB g/dL 11.2 15.7 11.4 FINAL [facility] B&Whole Blood [facility] (T), [address] [place], [address] [place] [address] 02/02 CBC w/ auto diff HCT % 34.1 44.9 36.6 FINAL [facility] B&Whole Blood [facility] (T), [address] [place], [address] [place] [address] 02/02 CBC w/ auto diff MCV fL 79.4 94.8 89.1 FINAL [facility] B&Whole Blood [facility] (T), [address] [place], [address] [place] [address] 02/02 CBC w/ auto diff MCH pg 25.6 32.2 27.7 FINAL [facility] B&Whole Blood [facility] (T), [address] [place], [address] [place] [address] 02/02 CBC w/ auto diff MCHC g/dL 32.2 35.5 31.1 Low FINAL [facility] B&Whole Blood [facility] (T), [address] [place], [address] [place] [address] 02/02 CBC w/ auto diff RDW-C V, % % 11.7 14.4 14.9 High FINAL [facility] B&Whole Blood [facility] (T), [address] [place], [address] [place] [address] 02/02 CBC w/ auto diff PLT 10*3/u L 182.0 369.0 241.0 FINAL [facility] B&Whole Blood [facility] (T), [address] [place], [address] [place] [address] 02/02 CMP-C [facility] Sodiu m mmol/L 136.0 145.0 140 FINAL Vinicio [facility], [place] [address] 02/02 CMP-C [facility] Potas sium mmol/L 3.5 5.1 4.5 FINAL Vinicio [facility], [place] [address] 02/02 CMP-C [facility] Chlor cristy mmol/L 98.0 107.0 103 FINAL Vinicio [facility], [place] [address] 02/02 CMP-C [facility] CO2 mmol/L 20.0 31.0 28 FINAL Vinicio [facility], [place] [address] 02/02 CMP-C [facility] Anion gap, mmol/ L mmol/L 4.0 15.0 9 FINAL Vinicio [facility], [place] [address] 02/02 CMP-C [facility] BUN mg/dL 9.0 23.0 20 FINAL Vinicio [facility], [place] [address] 02/02 CMP-C [facility] Creat inine mg/dL 0.5 0.8 0.87 High FINAL Vinicio [facility], [place] [address] 02/02 CMP-[facility] BUN/C reati nine ratio 23 FINAL Vinicio [facility], [place] [address] 02/02 CMP-C [facility] Gluco se mg/dL 65.0 106.0 100 FINAL Vinicio [facility], [place] [address] 02/02 CMP-C [facility] Calci um mg/dL 8.3 10.6 9.3 FINAL Vinicio [facility], [place] [address] 02/02 CMP-C [facility] Album in gm/dL 3.4 5.0 4.1 FINAL Vinicio [facility], [place] [address] 02/02 CMP-C [facility] Total prote in gm/dL 5.7 8.2 6.7 FINAL Vinicio [facility], [place] [address] 02/02 CMP-C [facility] Alkal ine phosp hatas e unit/L 46.0 116.0 87 FINAL Vinicio [facility], [place] [address] 02/02 CMP-C [facility] ALT/S GPT unit/L 21 FINAL Vinicio [facility], [place] [address] 02/02 CMP-C [facility] AST/S GOT unit/L 22 FINAL Vinicio [facility], [place] [address] 02/02 [facility] Bilir ubin, total mg/dL 0.1 1.2 0.4 FINAL Vinicio [facility], [place] [address] 02/02 [facility] Globu sandhya gm/dL 2.6 FINAL Vinicio [facility], [place] [address] 02/02 [facility] A/G ratio 1.0 2.0 2 FINAL Vinicio [facility], [place] [address] 02/02 [facility] GFR non-A frica n Ameri can, estim ated mL/min /1.73m 2 >60 Estimated GFR Non calculate d using MDRD study equation. FINAL Vinicio [facility], [place] [address] 02/02 [facility] GFR Afric an Ameri can, estim ated mL/min /1.73m 2 >60 Estimated GFR calculate d using MDRD study equation FINAL Vinicio [facility], [place] [address] 02/02 LDH unit/L 120.0 246.0 207 FINAL Vinicio [facility], [place] [address] 04/14 Lab Repor t See machine tender d 06/25 Lab Repor t See machine tender d 02/01 CMP - Core Lab Album in g/dL 3.4 5.0 3.9 FINAL [facility] ([facility]), [address] [place] [address] 02/01 CMP - Core Lab Alkal ine phosp hatas e U/L 46.0 116.0 92 FINAL [facility] Counts include 234 beds at the [facility] ([facility]), [address] [place] [address] 02/01 CMP - Core Lab ALT/S GPT U/L 10.0 49.0 25 FINAL [facility] Counts include 234 beds at the [facility] ([facility]), [address] [place] [address] 02/01 CMP - Core Lab AST/S GOT U/L 0.0 34.0 23 FINAL [facility] ([facility]), [address] [place] [address] 02/01 CMP - Core Lab Calci um mg/dL 8.7 10.4 9.4 FINAL Vinicio [facility] ([facility]), [address] [place] [address] 02/01 CMP - Core Lab Chlor cristy mmol/L 98.0 107.0 104 FINAL Vinicio [facility]&Serum [facility] ([facility]), [address] [place] [address] 02/01 CMP - Core Lab CO2 mmol/L 20.0 31.0 28.3 [facility]AL [facility]), [address] [place] [address] 02/01 CMP - Core Lab Creat inine mg/dL 0.5 0.8 0.72 FINAL Vinicio [facility]&Serum [facility] ([facility]), [address] [place] [address] 02/01 CMP - Core Lab GFR non-A frica n Ameri can, estim ated mL/min /1.73m >60.0 FINAL [facility] ([facility]), [address] [place] [address] 02/01 CMP - Core Lab GFR Afric an Ameri can, estim ated mL/min /1.73m >60.0 FINAL Vinicio [facility]&Serum [facility] ([facility]), [address] [place] [address] 02/01 CMP - Core Lab Gluco se mg/dL 74.0 106.0 96 FINAL [facility] ([facility]), [address] [place] [address] 02/01 CMP - Core Lab Potas sium mmol/L 3.5 5.1 4.6 FINAL Vinicio [facility]&Serum [facility] ([facility]), [address] [place] [address] 02/01 CMP - Core Lab Sodiu m mmol/L 136.0 145.0 140 FINAL [facility] ([facility]), [address] [place] [address] 02/01 CMP - Core Lab Anion gap, mmol/ L mmol/L 4.0 15.0 7.7 FINAL Vinicio [facility]&Serum [facility] ([facility]), [address] [place] [address] 02/01 CMP - Core Lab Bilir ubin, total mg/dL 0.3 1.2 0.4 FINAL Vinicio [facility]&Serum [facility] ([facility] [place] [address] [place] [id number] 02/01 CMP - Core Lab Total prote in g/dL 5.7 8.2 6.6 FINAL [facility] S&Serum Counts include 234 beds at the [facility] ([facility]), [address] [place] [address] 02/01 CMP - Core Lab A/G ratio 1.0 2.0 1.4 FINAL [facility]&Serum Counts include 234 beds at the [facility] ([facility]), [address] [place] [address] 02/01 CMP - Core Lab BUN mg/dL 9.0 23.0 18 FINAL [facility] S&Serum Counts include 234 beds at the [facility] ([facility]), [address] [place] [address] 02/01 CMP - Core Lab BUN/C reati nine ratio 0.0 25.0 25.0 FINAL [facility]&Serum Counts include 234 beds at the [facility] ([facility]), [address] [place] [address] 02/01 LDH U/L 120.0 246.0 204 FINAL [facility]&Serum Counts include 234 beds at the [facility] ([facility]), [address] [place] [address] 02/01 CBC w/ auto diff WBC 10*3/u L 4.0 10.0 6.1 FINAL [facility]&Whole Blood [facility] ([facility]), [address] [place], [address] [place] [address] 02/01 CBC w/ auto diff Jennifer # (ANC) 10*3/u L 1.56 6.13 4.00 FINAL [facility]&Whole Blood [facility] ([facility]), [address] [place], [address] [place] [address] 02/01 CBC w/ auto diff LY # 10*3/u L 1.18 3.74 1.35 FINAL [facility] B&Whole Blood [facility] ([facility]), [address] [place], [address] [place] [address] 02/01 CBC w/ auto diff MO # 10*3/u L 0.24 0.86 0.46 FINAL [facility] B&Whole Blood [facility] ([facility]), [address] [place], [address] [place] [address] 02/01 CBC w/ auto diff EO # 10*3/u lL 0.04 0.36 0.25 FINAL [facility]&Whole Blood [facility] ([facility]), [address] [place], [address] [place] [address] 02/01 CBC w/ auto diff BA # 10*3/u L 0.01 0.08 0.02 FINAL [facility] B&Whole Blood [facility] ([facility]), [address] [place], [address] [place] [address] 02/01 CBC w/ auto diff Jennifer % % 34.0 71.1 65.8 FINAL [facility] B&Whole Blood [facility] (T), [address] [place], [address] [place] [address] 02/01 CBC w/ auto diff LY % % 19.3 51.7 22.2 FINAL [facility] B&Whole Blood [facility] ([facility]), [address] [place], [address] [place] [address] 02/01 CBC w/ auto diff MO % % 4.7 12.5 7.6 FINAL [facility] B&Whole Blood [facility] ([facility]), [address] [place], [address] [place] [address] 02/01 CBC w/ auto diff EO % % 0.7 5.8 4.1 FINAL [facility] B&Whole Blood [facility] ([facility]), [address] [place], [address] [place] [address] 02/01 CBC w/ auto diff BA % % 0.1 1.2 0.3 FINAL [facility] B&Whole Blood [facility] (T), [address] [place], [address] [place] [address] 02/01 CBC w/ auto diff RBC 10*6/u L 3.93 5.22 3.84 Low FINAL [facility] B&Whole Blood [facility] ([facility]), [address] [place], [address] [place] [address] 02/01 CBC w/ auto diff HGB g/dL 11.2 15.7 10.9 Low FINAL [facility] B&Whole Blood [facility] ([facility]), [address] [place], [address] [place] [address] 02/01 CBC w/ auto diff HCT % 34.1 44.9 34.7 FINAL [facility] B&Whole Blood [facility] ([facility]), [address] [place], [address] [place] [address] 02/01 CBC w/ auto diff MCV fL 79.4 94.8 90.4 FINAL [facility] B&Whole Blood [facility] ([facility]), [address] [place], [address] [place], [place] [id number] 02/01 CBC w/ auto diff MCH pg 25.6 32.2 28.4 FINAL [facility] B&Whole Blood [facility] ([facility]), [address] [place], [address] [place] [address] 02/01 CBC w/ auto diff MCHC g/dL 32.2 35.5 31.4 Low FINAL [facility]&Whole Blood [facility] ([facility]), [address] [place], [address] [place] [address] 02/01 CBC w/ auto diff RDW-C V, % % 11.7 14.4 14.2 FINAL [facility]&Whole Blood [facility] ([facility]), [address] [place], [address] [place] [address] 02/01 CBC w/ auto diff PLT 10*3/u L 182.0 369.0 243.0 FINAL [facility]&Whole Blood [facility] ([facility]), [address] [place], [address] [place], [place] [id number] 02/26 CMP - Core Lab Sodiu m mmol/L 136.0 145.0 141 FINAL [facility] ([facility]), [address] [place] [address] [place] [address] 02/26 CMP - Core Lab Potas sium mmol/L 3.5 5.1 4.7 FINAL [facility] ([facility]), [address] [place] [address] [place] [address] 02/26 CMP - Core Lab Chlor cristy mmol/L 98.0 107.0 108 High FINAL [facility] ([facility]), [address] [place] [address] [place] [address] 02/26 CMP - Core Lab CO2 mmol/L 20.0 31.0 25.2 FINAL [facility] ([facility]), [address] [place] [address] [place] [address] 02/26 CMP - Core Lab Anion gap, mmol/ L mmol/L 4.0 15.0 7.8 FINAL [facility] ([facility]), [address] [place] [address] [place] [address] 02/26 CMP - Core Lab BUN mg/dL 9.0 23.0 16 FINAL [facility] ([facility]), [address] [place] [address] 02/26 CMP - Core Lab BUN/C reati nine ratio 0.0 25.0 18.8 FINAL [facility] ([facility]), [address] [place] [address] 02/26 CMP - Core Lab Creat inine mg/dL 0.5 0.8 0.85 High FINAL [facility] ([facility]), [address] [place] [address] 02/26 CMP - Core Lab GFR non-A frica n Ameri can, estim ated mL/min /1.73m >60.0 FINAL [facility] ([facility]), [address] [place] [address] 02/26 CMP - Core Lab GFR Afric an Ameri can, estim ated mL/min /1.73m >60.0 FINAL [facility] ([facility]), [address] [place] [address] 02/26 CMP - Core Lab Gluco se mg/dL 74.0 106.0 96 FINAL [facility] ([facility]), [address] [place] [address] 02/26 CMP - Core Lab Calci um mg/dL 8.7 10.6 9.2 FINAL [facility] ([facility]), [address] [place] [address] 02/26 CMP - Core Lab Album in g/dL 3.4 5.0 3.7 FINAL [facility] ([facility]), [address] [place] [address] 02/26 CMP - Core Lab Total prote in g/dL 5.7 8.2 6.8 FINAL [facility] ([facility]), [address] [place] [address] 02/26 CMP - Core Lab A/G ratio 1.0 2.0 1.2 FINAL [facility] ([facility]), [address] [facility] [address] 02/26 CMP - Core Lab Alkal ine phosp hatas e U/L 46.0 116.0 94 FINAL [facility] ([facility]), [address] [place] [address] 02/26 CMP - Core Lab ALT/S GPT U/L 10.0 49.0 28 FINAL [facility] ([facility]), [address] [place] [address] 02/26 CMP - Core Lab AST/S GOT U/L 0.0 34.0 22 FINAL [facility] ([facility]), [address] [place] [address] 02/26 CMP - Core Lab Bilir ubin, total mg/dL 0.3 1.2 0.3 FINAL [facility] ([facility]), [address] [place] [address] 02/26 LDH U/L 120.0 246.0 189 FINAL [facility] ([facility]), [address] [place] [address] 02/26 CBC w/ auto diff WBC 10*3/u L 4.0 10.0 6.5 FINAL [facility] (T), [address] [place], [address] [place] [address] 02/26 CBC w/ auto diff Jennifer # (ANC) 10*3/u L 1.56 6.13 4.17 FINAL [facility] ([facility]), [address] [place], [address] [place], [place] [address] 02/26 CBC w/ auto diff LY # 10*3/u L 1.18 3.74 1.55 FINAL [facility] ([facility]), [address] [place], [address] [place], [place] [address] 02/26 CBC w/ auto diff MO # 10*3/u L 0.24 0.86 0.48 FINAL [facility] ([facility]), [address] [place], [address] [place] [address] 02/26 CBC w/ auto diff EO # 10*3/u lL 0.04 0.36 0.29 FINAL [facility] ([facility]), [address] [place], [address] [place] [address] 02/26 CBC w/ auto diff BA # 10*3/u L 0.01 0.08 0.04 FINAL [facility] ([facility]), [address] [place], [address] [place] [address] 02/26 CBC w/ auto diff Jennifer % % 34.0 71.1 63.9 FINAL [facility] ([facility]), [address] [place], [address] [place] [address] 02/26 CBC w/ auto diff LY % % 19.3 51.7 23.7 FINAL [facility] ([facility]), [address] [place], [address] [place] [address] 02/26 CBC w/ auto diff MO % % 4.7 12.5 7.4 FINAL [facility] ([facility]), [address] [place], [address] [place] [address] 02/26 CBC w/ auto diff EO % % 0.7 5.8 4.4 FINAL [facility] ([facility]), [address] [place], [address] [place] [address] 02/26 CBC w/ auto diff BA % % 0.1 1.2 0.6 FINAL [facility] ([facility]), [address] [place], [address] [place] [address] 02/26 CBC w/ auto diff RBC 10*6/u L 3.93 5.22 3.95 FINAL [facility] ([facility]), [address] [place], [address] [place] [address] 02/26 CBC w/ auto diff HGB g/dL 11.2 15.7 10.9 Low FINAL [facility] ([facility]), [address] [place], [address] [place] [address] 02/26 CBC w/ auto diff HCT % 34.1 44.9 34.9 FINAL [facility] (T), [address] [place], [address] [place] [id number] 02/26 CBC w/ auto diff MCV fL 79.4 94.8 88.4 FINAL [facility] ([facility]), [address] [place], [address] [place] [id number] 02/26 CBC w/ auto diff MCH pg 25.6 32.2 27.6 FINAL [facility] ([facility]), [address] [place], [address] [facility] [address] 02/26 CBC w/ auto diff MCHC g/dL 32.2 35.5 31.2 Low FINAL [facility] ([facility]), [address] [place], [address] [place], [place] [id number] 02/26 CBC w/ auto diff RDW-C V, % % 11.7 14.4 14.1 FINAL [facility] ([facility]), [address] [place], [address] [place], [place] [phone] 02/26 CBC w/ auto diff PLT 10*3/u L 182.0 369.0 258.0 FINAL [facility] ([facility]), [address] [place], [address] [place], [place] [address] Medications Date Name Route Dose Frequency Instructions Start Date End Date Status Ascorbic Acid Oral Oral 1000.0 tablet active Acetaminophen Oral Oral 1300.0 tablet Once every 12 Hours active Cetirizine Oral orally 1.0 capsule every day active Multivitamins Oral Tablet oral daily active 017 Atorvastatin Oral orally 1.0 tablet every day 017 active 017 Metformin Oral orally 1.0 tablet 2 times per day 017 active 017 Citalopram Oral orally 1.0 tablet every day 017 active 017 Amlodipine Oral orally 1.0 tablet every day 017 active 017 Potassium Chloride Oral ER Tab orally 1.0 tablet extended release 2 times per day 017 active 017 Lisinopril-[place] chlorothiazide Oral 20 mg-12.5 mg Oral 2.0 1 2 tabs daily 017 active Problems Diagnosis Status Date of Diagnosi s Diabetes mellitus type 2 (disorder) Active Hypertensive disorder, systemic arterial (disord er) Active Primary hypercholesterolemia (disorder) Active History of malignant lymphoma (situation) Active Diffuse non-Hodgkin's lymphoma, 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 Vital Signs Date Type Value 08/12/2017 Body Temperature 98.50 08/12/2017 Heart Beat 78.00 08/12/2017 Respiratory Rate 14.00 08/12/2017 Intravascular Systolic 118 08/12/2017 Intravascular Diastolic 80 08/12/2017 BSA 1.91 08/12/2017 Weight 169.40 08/12/2017 Height 67.00 08/12/2017 BMI 26.53 08/12/2017 Pain Scale 0.00 10/07/2017 BSA 1.90 10/07/2017 Body Temperature 98.50 10/07/2017 Heart Beat 76.00 10/07/2017 Respiratory Rate 15.00 10/07/2017 Intravascular Systolic 122 10/07/2017 Intravascular Diastolic 70 10/07/2017 Pain Scale 0.00 10/07/2017 Weight 169.00 10/07/2017 BMI 26.47 10/07/2017 Height 67.00 12/02/2017 Body Temperature 98.60 12/02/2017 Heart Beat 68.00 12/02/2017 Respiratory Rate 15.00 12/02/2017 Intravascular Systolic 130 12/02/2017 Intravascular Diastolic 66 12/02/2017 BSA 1.89 12/02/2017 Weight 167.40 12/02/2017 Height 67.00 12/02/2017 BMI 26.22 12/02/2017 Pain Scale 0.00 01/20/2018 BSA 1.93 01/20/2018 Body Temperature 98.50 01/20/2018 Heart Beat 82.00 01/20/2018 Respiratory Rate 15.00 01/20/2018 Intravascular Systolic 144 01/20/2018 Intravascular Diastolic 88 01/20/2018 Pain Scale 0.00 01/20/2018 Weight 173.00 01/20/2018 BMI 27.10 01/20/2018 Height 67.00 02/03/2018 BMI 26.97 02/03/2018 Height 67.00 02/03/2018 Weight 172.20 02/03/2018 Pain Scale 0.00 02/03/2018 Intravascular Systolic 110 02/03/2018 Intravascular Diastolic 68 02/03/2018 Respiratory Rate 12.00 02/03/2018 Heart Beat 66.00 02/03/2018 Body Temperature 98.30 02/03/2018 BSA 1.92 03/17/2018 BMI 28.30 03/17/2018 Height 67.00 03/17/2018 Weight 180.70 03/17/2018 Pain Scale 0.00 03/17/2018 BSA 1.97 03/17/2018 Respiratory Rate 15.00 03/17/2018 Heart Beat 76.00 03/17/2018 Body Temperature 99.30 03/17/2018 Intravascular Systolic 138 03/17/2018 Intravascular Diastolic 76 06/23/2018 BSA 1.95 06/23/2018 BMI 27.72 06/23/2018 Height 67.00 06/23/2018 Weight 177.00 06/23/2018 Pain Scale 0.00 06/23/2018 Intravascular Systolic 146 06/23/2018 Intravascular Diastolic 82 06/23/2018 Respiratory Rate 16.00 06/23/2018 Body Temperature 98.00 08/11/2018 BSA 1.95 08/11/2018 BMI 27.74 08/11/2018 Height 67.00 08/11/2018 Weight 177.10 08/11/2018 Pain Scale 0.00 08/11/2018 Intravascular Systolic 130 08/11/2018 Intravascular Diastolic 72 08/11/2018 Respiratory Rate 14.00 08/11/2018 Body Temperature 98.00 08/11/2018 Heart Beat 70.00 10/13/2018 Body Temperature 97.90 10/13/2018 Heart Beat 68.00 10/13/2018 Respiratory Rate 15.00 10/13/2018 Intravascular Systolic 127 10/13/2018 Intravascular Diastolic 60 10/13/2018 Pain Scale 0.00 10/13/2018 Weight 179.70 10/13/2018 Height 67.00 10/13/2018 BMI 28.14 10/13/2018 BSA 1.96 11/24/2018 Body Temperature 98.30 11/24/2018 BMI 28.05 11/24/2018 Height 67.00 11/24/2018 Weight 179.10 11/24/2018 BSA 1.96 11/24/2018 Intravascular Systolic 114 11/24/2018 Intravascular Diastolic 65 11/24/2018 Oxygen Saturation 94.00 11/24/2018 Heart Beat 65.00 11/24/2018 Pain Scale 0.00 01/19/2019 BSA 1.96 01/19/2019 Body Temperature 98.40 01/19/2019 Heart Beat 70.00 01/19/2019 Respiratory Rate 15.00 01/19/2019 Intravascular Systolic 121 01/19/2019 Intravascular Diastolic 63 01/19/2019 Pain Scale 0.00 01/19/2019 Weight 179.50 01/19/2019 Height 67.00 01/19/2019 BMI 28.11 02/02/2019 BSA 1.94 02/02/2019 BMI 27.47 02/02/2019 Height 67.00 02/02/2019 Weight 175.40 02/02/2019 Body Temperature 98.80 02/02/2019 Intravascular Systolic 122 02/02/2019 Intravascular Diastolic 74 02/02/2019 Respiratory Rate 14.00 02/02/2019 Heart Beat 68.00 02/02/2019 Pain Scale 0.00 02/02/2020 BSA 1.95 02/02/2020 BMI 27.69 02/02/2020 Height 67.00 02/02/2020 Weight 176.80 02/02/2020 Pain Scale 0.00 02/02/2020 Intravascular Systolic 138 02/02/2020 Intravascular Diastolic 82 02/02/2020 Respiratory Rate 14.00 02/02/2020 Body Temperature 98.20 02/02/2020 Heart Beat 78.00 02/26/2021 BMI 27.35 02/26/2021 Height 67.00 02/26/2021 Weight 174.60 02/26/2021 Pain Scale 0.00 02/26/2021 BSA 1.93 02/26/2021 Respiratory Rate 14.00 02/26/2021 Heart Beat 78.00 02/26/2021 Body Temperature 98.50 02/26/2021 Intravascular Systolic 140 02/26/2021 Intravascular Diastolic 80 Notes Section * Nurse Note for: 19-JAN-19 [facility] Nurse Note Print Location: Unknown Date/Time Printed: 11/03/2024 10:43 ([facility]) Patient: WENDY BLACKMAN Sex: Female : 1940 Date of Service: 01/19/2019 Allergies : gabapentin Vital Signs : Time: 11:32. Weight: 179.5 lb (81.42 kg). Height: 67 in (170.18 cm). BMI: 28.11 (kg/m2) . BSA: 1.96(m2) . Temperature: 98.4 F (36.89 C). Pulse: 70 (/min) . Respirations: 15 (/min) . Blood pressure: 121/63 (mm Hg). Pain Scale: 0. Entered by Toya Medina MA 01/19/2019 11:34 Patient Assessment : Positive results Assessment : Alert, oriented with appropriate behavior. Negative results Assessment : Labs Verified: No, Gait Changes. Denies Neuropathy , Pain -0-No pain, Fatigue , Anxiety/Depression , Fever, Chills or Night Sweats ,Signs of Infection , Skin Changes , Dizziness , Headaches , Nausea , Breathing Changes , Cough , Mouth Sores/Stomatitis/Mucositis , Changes in Appetite , Vomiting , Diarrhea , Constipation , Urinary Changes , Bleeding . Entered By Sophy Cho RN on 13:54 IV Access/Lab Draw : IV Access-CVC - Powerport, Needle Type-Vega, Needle Size-20 Gauge, Needle Length-3/4 inch, Access Site-Left Chest, Flush-10ml NS, Site Assess List-Blood Return,No Redness,No Swelling,No Tenderness,No Bruising, Site Care Checklist- Aseptic Technique, Lab Drawn-No, Entered By Sophy Cho RN on 13:54 IV De-Access : IV Access Method-CVC - Powerport, IV Access Type-Vega, Line Flushed-10ml NS,500u Heparin, Catheter-Dc'd, Site Care-Bandage Applied,Blood Return Noted During Administration,Therapy Completed Without Adverse Event,Port Deaccessed, Site Assess-Line Intact,No Redness,No Swelling,No Tenderness,No Bruising, Entered By Sophy Cho RN on 13:54 Procedures : Port flush; Selected Billing Code(s): IRRIGAJ IMPLNTD VENOUS ACCESS DRUG DELIVERY SYST (36471) Entered By Sophy Cho RN; Incident to Michael Shaikh MD ;Missing information: Billing problem(s) * Nurse Note for: 24-NOV-18 [facility] Nurse Note Print Location: Unknown Date/Time Printed: 11/03/2024 10:43 ([facility]) Patient: WENDY BLACKMAN Sex: Female : 1940 Date of Service: 11/24/2018 Allergies : gabapentin Vital Signs : Time: 11:44. Weight: 179.1 lb (81.24 kg). Height: 67 in (170.18 cm). BMI: 28.05 (kg/m2) . BSA: 1.96(m2) . Temperature: 98.3 F (36.83 C) oral. Pulse: 65 (/min) . Blood pressure: 114/65 (mm Hg) left arm Regular. Pain Scale: 0. O2 Saturation: 94 (%) at rest. Entered by Rosey Vieira MA 11/24/2018 11:46 Patient Assessment : Positive results Assessment : Alert, oriented with appropriate behavior. Negative results Assessment : Labs Verified: No, Gait Changes. Denies Neuropathy , Pain -0-No pain, Fatigue , Anxiety/Depression , Fever, Chills or Night Sweats ,Signs of Infection , Skin Changes , Dizziness , Headaches , Nausea , Breathing Changes , Cough , Mouth Sores/Stomatitis/Mucositis , Changes in Appetite , Vomiting , Diarrhea , Constipation , Urinary Changes , Bleeding . Entered By Sophy Cho RN on 16:29 IV Access/Lab Draw : IV Access-CVC - Powerport, Needle Type-Vega, Needle Size-20 Gauge, Needle Length-3/4 inch, Access Site-Left Chest, Flush-10ml NS, Site Assess List-Blood Return,No Redness,No Swelling,No Tenderness,No Bruising, Site Care Checklist- Aseptic Technique, Lab Drawn-No, Entered By Sophy Cho RN on 16:29 IV De-Access : IV Access Method-CVC - Powerport, IV Access Type-Vega, Line Flushed-10ml NS,500u Heparin, Catheter-Dc'd, Site Care-Bandage Applied,Blood Return Noted During Administration,Therapy Completed Without Adverse Event,Port Deaccessed, Site Assess-Line Intact,No Redness,No Swelling,No Tenderness,No Bruising, Entered By Sophy Cho RN on 16:29 Procedures : Port flush; Selected Billing Code(s): IRRIGAJ IMPLNTD VENOUS ACCESS DRUG DELIVERY SYST (34537) Entered By Sophy Cho RN; Incident to Michael Shaikh MD ;Missing information: Billing problem(s) * Nurse Note for: 13-OCT-18 [facility] Nurse Note Print Location: Unknown Date/Time Printed: 11/03/2024 10:43 ([facility]) Patient: WENDY BLACKMAN Sex: Female : 1940 Date of Service: 10/13/2018 Allergies : gabapentin Vital Signs : Time: 11:41. Weight: 179.7 lb (81.51 kg). Height: 67 in (170.18 cm). BMI: 28.14 (kg/m2) . BSA: 1.96(m2) . Temperature: 97.9 F (36.61 C). Pulse: 68 (/min) . Respirations: 15 (/min) . Blood pressure: 127/60 (mm Hg). Pain Scale: 0. Entered by Toya Medina MA 10/13/2018 11:43 Patient Assessment : Positive results Assessment : Alert, oriented with appropriate behavior. Complains of Fatigue. Negative results Assessment : Labs Verified: No, Gait Changes. Denies Neuropathy , Pain -0-No pain, Anxiety/Depression , Fever, Chills or Night Sweats , Signs of Infection , Skin Changes , Dizziness , Headaches , Nausea , Breathing Changes , Cough , Mouth Sores/Stomatitis/Mucositis , Changes in Appetite , Vomiting , Diarrhea , Constipation , Urinary Changes , Bleeding . Entered By Sophy Cho RN on 14:16 IV Access/Lab Draw : IV Access-CVC - Powerport, Needle Type-Vega, Needle Size-20 Gauge, Needle Length-3/4 inch, Access Site-Left Chest, Flush-10ml NS, Site Assess List-Blood Return,No Redness,No Swelling,No Tenderness,No Bruising, Site Care Checklist- Aseptic Technique, Lab Drawn-No, Entered By Sophy Cho RN on 14:15 IV De-Access : IV Access Method-CVC - Powerport, IV Access Type-Vega, Line Flushed-10ml NS,500u Heparin, Catheter-Dc'd, Site Care-Bandage Applied,Blood Return Noted During Administration,Therapy Completed Without Adverse Event,Port Deaccessed, Site Assess-Line Intact,No Redness,No Swelling,No Tenderness,No Bruising, Entered By Sophy Cho RN on 14:15 Procedures : Port flush; Selected Billing Code(s): IRRIGAJ IMPLNTD VENOUS ACCESS DRUG DELIVERY SYST (51351) Entered By Sophy Cho RN; Incident to Michael Shaikh MD ;Missing information: Billing problem(s) * Nurse Note for: 11-AUG-18 [facility] Nurse Note Print Location: Unknown Date/Time Printed: 11/03/2024 10:43 ([facility]) Patient: WENDY BLACKMAN Sex: Female : 1940 Date of Service: 08/11/2018 Allergies : gabapentin Vital Signs : Time: 11:13. Temperature: 98 F (36.67 C). Entered by Tricia Pinedo MA 08/11/2018 11:15 Time: 11:13. Weight: 177.1 lb (80.33 kg). Height: 67 in (170.18 cm). BMI: 27.74 (kg/m2) . BSA: 1.95(m2) . Pulse: 70 (/min) . Respirations: 14 (/min) . Blood pressure: 130/72 (mm Hg). Pain Scale: 0. Entered by Tricia Pinedo MA 08/11/2018 11:14 Patient Assessment : Positive results Assessment : Alert, oriented with appropriate behavior. Complains of Fatigue. Negative results Assessment : Labs Verified: No, Gait Changes. Denies Neuropathy , Pain -0-No pain, Anxiety/Depression , Fever, Chills or Night Sweats , Signs of Infection , Skin Changes , Dizziness , Headaches , Nausea , Breathing Changes , Cough , Mouth Sores/Stomatitis/Mucositis , Changes in Appetite , Vomiting , Diarrhea , Constipation , Urinary Changes , Bleeding . Entered By Sophy Cho RN on : IV Access/Lab Draw : IV Access-CVC - Powerport, Needle Type-Vega, Needle Size-20 Gauge, Needle Length-3/4 inch, Access Site-Left Chest, Flush-10ml NS, Site Assess List-Blood Return,No Redness,No Swelling,No Tenderness,No Bruising, Site Care Checklist- Aseptic Technique, Lab Drawn-No, Entered By Sophy Cho RN on : IV De-Access : IV Access Method-CVC - Powerport, IV Access Type-Vega, Line Flushed-10ml NS,500u Heparin, Catheter-Dc'd, Site Care-Bandage Applied,Blood Return Noted During Administration,Therapy Completed Without Adverse Event,Port Deaccessed, Site Assess-Line Intact,No Redness,No Swelling,No Tenderness,No Bruising, Entered By Sophy Cho RN on 11:21 Procedures : Port flush; Selected Billing Code(s): IRRIGAJ IMPLNTD VENOUS ACCESS DRUG DELIVERY SYST (75993) Entered By Sophy Cho RN; Incident to Michael Shaikh MD ;Missing information: Billing problem(s) * Nurse Note for: 23-JUN-18 [facility] Nurse Note Print Location: Unknown Date/Time Printed: 11/03/2024 10:43 ([facility]) Patient: WENDY BLACKMAN Sex: Female : 1940 Date of Service: 06/23/2018 Allergies : gabapentin Vital Signs : Time: 11:45. Weight: 177 lb (80.29 kg). Height: 67 in (170.18 cm). BMI: 27.72 (kg/m2) . BSA: 1.95 (m2) . Temperature: 98 F (36.67 C). Respirations: 16 (/min) . Blood pressure: 146/82 (mm Hg). Pain Scale: 0. Entered by Tricia Pinedo MA 06/23/2018 11:47 Patient Assessment : Positive results Assessment : Alert, oriented with appropriate behavior. Complains of Fatigue. Negative results Assessment : Labs Verified: No, Gait Changes. Denies Neuropathy , Pain -0-No pain, Anxiety/Depression , Fever, Chills or Night Sweats , Signs of Infection , Skin Changes , Dizziness , Headaches , Nausea , Breathing Changes , Cough , Mouth Sores/Stomatitis/Mucositis , Changes in Appetite , Vomiting , Diarrhea , Constipation , Urinary Changes , Bleeding . Entered By Sophy Cho RN on 13:06 IV Access/Lab Draw : IV Access-CVC - Powerport, Needle Type-Vega, Needle Size-20 Gauge, Needle Length-3/4 inch, Access Site-Left Chest, Flush-10ml NS, Site Assess List-Blood Return,No Redness,No Swelling,No Tenderness,No Bruising, Site Care Checklist- Aseptic Technique, Lab Drawn-No, Entered By Sophy Cho RN on 13:06 IV De-Access : IV Access Method-CVC - Powerport, IV Access Type-Vega, Line Flushed-10ml NS,500u Heparin, Catheter-Dc'd, Site Care-Bandage Applied,Blood Return Noted During Administration,Therapy Completed Without Adverse Event,Port Deaccessed, Site Assess-Line Intact,No Redness,No Swelling,No Tenderness,No Bruising, Entered By Sophy Cho RN on 13:06 Procedures : Port flush; Selected Billing Code(s): IRRIGAJ IMPLNTD VENOUS ACCESS DRUG DELIVERY SYST (98639) Entered By Sophy Cho RN; Incident to Michael Shaikh MD ;Missing information: Billing problem(s) * Nurse Note for: 17-MAR-18 [facility] Nurse Note Print Location: Unknown Date/Time Printed: 11/03/2024 10:43 ([facility]) Patient: WENDY BLACKMAN Sex: Female : 1940 Date of Service: 03/17/2018 Allergies : gabapentin Vital Signs : Time: 12:00. Weight: 180.7 lb (81.96 kg). Height: 67 in (170.18 cm). BMI: 28.3 (kg/m2) . BSA: 1.97 (m2) . Temperature: 99.3 F (37.39 C). Pulse: 76 (/min) . Respirations: 15 (/min) . Blood pressure: 138/76 (mm Hg). Pain Scale: 0. Entered by Toya Medina MA 03/17/2018 12:02 Patient Assessment : Positive results Assessment : Alert, oriented with appropriate behavior. Negative results Assessment : Labs Verified: No, Gait Changes. Denies Neuropathy , Pain -0-No pain, Fatigue , Anxiety/Depression , Fever, Chills or Night Sweats ,Signs of Infection , Skin Changes , Dizziness , Headaches , Nausea , Breathing Changes , Cough , Mouth Sores/Stomatitis/Mucositis , Changes in Appetite , Vomiting , Diarrhea , Constipation , Urinary Changes , Bleeding . Entered By Sophy Cho RN on 17:39 IV Access/Lab Draw : IV Access-CVC - Port-A-Cath, Needle Type-Vega, Needle Size-20 Gauge, Needle Length-3/4 inch, Access Site-Left Chest, Flush-10ml NS, Site Assess List-Blood Return,No Redness,No Swelling,No Tenderness,No Bruising, Site Care Checklist- Aseptic Technique, Lab Drawn-No, Entered By Sophy Cho RN on 17:38 IV De-Access : IV Access Method-CVC - Port-A-Cath, IV Access Type-Vega, Line Flushed-10ml NS,500u Heparin, Catheter-Dc'd, Site Care-Bandage Applied,Blood Return Noted During Administration,Therapy Completed Without Adverse Event,Port Deaccessed, Site Assess-Line Intact,No Redness,No Swelling,No Tenderness,No Bruising, Entered By Sophy Cho RN on 17:38 Procedures : Port flush; Selected Billing Code(s): IRRIGAJ IMPLNTD VENOUS ACCESS DRUG DELIVERY SYST (80062) Entered By Sophy Cho RN; Incident to Michael Shaikh MD ;Missing information: Billing problem(s) * Nurse Note for: 20-JAN-18 [facility] Nurse Note Print Location: Unknown Date/Time Printed: 11/03/2024 10:43 ([facility]) Patient: WENDY BLACKMAN Sex: Female : 1940 Date of Service: 01/20/2018 Allergies : gabapentin Vital Signs : Time: 11:31. Weight: 173 lb (78.47 kg). Height: 67 in (170.18 cm). BMI: 27.1 (kg/m2) . BSA: 1.93 (m2) . Temperature: 98.5 F (36.94 C). Pulse: 82 (/min) . Respirations: 15 (/min) . Blood pressure: 144/88 (mm Hg). Pain Scale: 0. Entered by Toya Medina MA 01/20/2018 11:37 Patient Assessment : Positive results Assessment : Alert, oriented with appropriate behavior. Complains of Fatigue. Negative results Assessment : Labs Verified: No, Gait Changes. Denies Neuropathy , Pain -0-No pain, Anxiety/Depression , Fever, Chills or Night Sweats , Signs of Infection , Skin Changes , Dizziness , Headaches , Nausea , Breathing Changes , Cough , Mouth Sores/Stomatitis/Mucositis , Changes in Appetite , Vomiting , Diarrhea , Constipation , Urinary Changes , Bleeding . Entered By Sophy Cho RN on 11:54 IV Access/Lab Draw : IV Access-CVC - Powerport, Needle Type-Vega, Needle Size-20 Gauge, Needle Length-3/4 inch, Access Site-Left Chest, Flush-10ml NS, Site Assess List-Blood Return,No Redness,No Swelling,No Tenderness,No Bruising, Site Care Checklist- Aseptic Technique, Lab Drawn-No, Entered By Sophy Cho RN on 11:53 IV De-Access : IV Access Method-CVC - Powerport, IV Access Type-Vega, Line Flushed-10ml NS,500u Heparin, Catheter-Dc'd, Site Care-Bandage Applied,Blood Return Noted During Administration,Therapy Completed Without Adverse Event,Port Deaccessed, Site Assess-Line Intact,No Redness,No Swelling,No Tenderness,No Bruising, Entered By Sophy Cho RN on :53 Procedures : Port flush - Associated Problem(s): History of malignant lymphoma (situation) *; Selected Billing Code(s): IRRIGAJ IMPLNTD VENOUS ACCESS DRUG DELIVERY SYST (85865) Entered By Sophy Cho RN; Incident to Michael Shaikh MD * Nurse Note for: 02-DEC-17 [facility] Nurse Note Print Location: Unknown Date/Time Printed: 11/03/2024 10:43 ([facility]) Patient: WENDY BLACKMAN Sex: Female : 1940 Date of Service: 12/02/2017 Allergies : gabapentin Vital Signs : Time: 12:02. Weight: 167.4 lb (75.93 kg). Height: 67 in (170.18 cm). BMI: 26.22 (kg/m2) . BSA: 1.89(m2) . Temperature: 98.6 F (37.00 C). Pulse: 68 (/min) . Respirations: 15 (/min) . Blood pressure: 130/66 (mm Hg). Pain Scale: 0. Entered by Toya Medina MA 12/02/2017 12:03 Patient Assessment : Negative results Assessment : Labs Verified: No, Alert, oriented with appropriate behavior, Gait Changes. Denies Neuropathy , Pain -0-No pain, Fatigue , Anxiety/Depression , Fever, Chills or Night Sweats ,Signs of Infection , Skin Changes , Dizziness , Headaches , Nausea , Breathing Changes , Cough , Mouth Sores/Stomatitis/Mucositis , Changes in Appetite , Vomiting , Diarrhea , Constipation , Urinary Changes , Bleeding . Entered By Sophy Cho RN on 13:07 IV Access/Lab Draw : IV Access-CVC - Powerport, Needle Type-Vega, Needle Size-20 Gauge, Needle Length-3/4 inch, Access Site-Left Chest, Flush-10ml NS, Site Assess List-Blood Return,No Redness,No Swelling,No Tenderness,No Bruising, Site Care Checklist- Aseptic Technique, Lab Drawn-No, Entered By Sophy Cho RN on 13:06 IV De-Access : IV Access Method-CVC - Powerport, IV Access Type-Vega, Line Flushed-10ml NS,500u Heparin, Catheter-Dc'd, Site Care-Bandage Applied,Blood Return Noted During Administration,Therapy Completed Without Adverse Event,Port Deaccessed, Site Assess-Line Intact,No Redness,No Swelling,No Tenderness,No Bruising, Entered By Sophy Cho RN on 13:06 Procedures : Port flush - Associated Problem(s): History of malignant lymphoma (situation) *; Selected Billing Code(s): IRRIGAJ IMPLNTD VENOUS ACCESS DRUG DELIVERY SYST (34163) Entered By Sophy Cho RN; Incident to Michael Shaikh MD * Nurse Note for: 07-OCT-17 [facility] Nurse Note Print Location: Unknown Date/Time Printed: 11/03/2024 10:43 ([facility]) Patient: WENDY BLACKMAN Sex: Female : 1940 Date of Service: 10/07/2017 Allergies : gabapentin Vital Signs : Time: 11:44. Weight: 169 lb (76.66 kg). Height: 67 in (170.18 cm). BMI: 26.47 (kg/m2) . BSA: 1.9 (m2) . Temperature: 98.5 F (36.94 C). Pulse: 76 (/min) . Respirations: 15 (/min) . Blood pressure: 122/70 (mm Hg). Pain Scale: 0. Entered by Toya Medina MA 10/07/2017 11:45 Patient Assessment : Positive results Assessment : Alert, oriented with appropriate behavior. Negative results Assessment : Labs Verified: No, Gait Changes. Denies Neuropathy , Pain -0-No pain, Fatigue , Anxiety/Depression , Fever, Chills or Night Sweats ,Signs of Infection , Skin Changes , Dizziness , Headaches , Nausea , Breathing Changes , Cough , Mouth Sores/Stomatitis/Mucositis , Changes in Appetite , Vomiting , Diarrhea , Constipation , Urinary Changes , Bleeding . Entered By Sophy Cho RN on 12:33 IV Access/Lab Draw : IV Access-CVC - Powerport, Needle Type-Vega, Needle Size-20 Gauge, Needle Length-3/4 inch, Access Site-Left Chest, Flush-10ml NS, Site Assess List-Blood Return,No Redness,No Swelling,No Tenderness,No Bruising, Site Care Checklist- Aseptic Technique, Lab Drawn-No, Entered By Sophy Cho RN on 12:32 IV De-Access : IV Access Method-CVC - Powerport, IV Access Type-Vega, Line Flushed-10ml NS,500u Heparin, Catheter-Dc'd, Site Care-Bandage Applied,Blood Return Noted During Administration,Therapy Completed Without Adverse Event,Port Deaccessed, Site Assess-Line Intact,No Redness,No Swelling,No Tenderness,No Bruising, Entered By Sophy Cho RN on 12:32 Procedures : Port flush - Associated Problem(s): History of malignant lymphoma (situation) *; Selected Billing Code(s): IRRIGAJ IMPLNTD VENOUS ACCESS DRUG DELIVERY SYST (09119) Entered By Sophy Cho RN; Incident to Michael Shaikh MD * Nurse Note for: 12-AUG-17 [facility] Nurse Note Print Location: Unknown Date/Time Printed: 11/03/2024 10:43 ([facility]) Patient: WENDY BLACKMAN Sex: Female : 1940 Date of Service: 08/12/2017 Allergies : gabapentin Vital Signs : Time: 12:41. Weight: 169.4 lb (76.84 kg). Height: 67 in (170.18 cm). BMI: 26.53 (kg/m2) . BSA: 1.91(m2) . Temperature: 98.5 F (36.94 C) oral. Pulse: 78 (/min) . Respirations: 14 (/min) . Blood pressure: 118/80 (mm Hg) left arm. Pain Scale: 0. Entered by Jane Agudelo MA 08/12/2017 12:43 Patient Assessment : Negative results Assessment : Labs Verified: No. Denies Neuropathy , Pain -0-No pain, Fatigue , Anxiety/Depression , Fever, Chills or Night Sweats ,Signs of Infection , Skin Changes , Dizziness , Headaches , Nausea , Breathing Changes , Cough , Mouth Sores/Stomatitis/Mucositis , Changes in Appetite , Vomiting , Diarrhea , Constipation , Urinary Changes , Bleeding . Entered By Emily Sanchez RN on : IV Access/Lab Draw : IV Access-VAD - Single, Needle Type-Vega, Needle Size-20 Gauge, Needle Length-1 inch, Access Site-Left Chest, Flush-10ml NS, Site Assess List-Blood Return,No Redness,No Swelling,No Tenderness,No Bruising, Site Care Checklist-Aseptic Technique, Lab Drawn-Yes, Access Attempts-1 time(s), Entered By Emily Sanchez RN on : IV De-Access : IV Access Method-VAD - Single, IV Access Type-Vega, Line Flushed-20ml NS,500u Heparin, Catheter-Dc'd, Site Care-Bandage Applied,Port Deaccessed, Site Assess- Line Intact,No Redness,No Swelling,No Tenderness,No Bruising, Entered By Emily Sanchez RN on :22 Procedures : Blood draw via port - Associated Problem(s): History of malignant lymphoma (situation) *; Selected Billing Code(s): COLLECT BLOOD FROM IMPLANT VENOUS ACCESS DEVICE (82394) Entered By Emily Sanchez RN; Incident to Vinicio Levy MD
--- OUTSIDE RECORDS SUMMARY | 2024-11-03 10:43 | XMS_ITS ---
Author Name Interface, [id number] lity Address [address] [place] [address] Organization [facility] Address [address] [place] [address] Care Team Providers Care Photography Sales Associate Name Role Phone Michael Shaikh Unavailable Unavailable Allergies and Adverse Reactions Medication/Group Name [...] RTC 02/02/2020 APPOINTMENT Lab 02/02/2019 APPOINTMENT MD ALLAN 1 Year 02/02/2019 APPOINTMENT MD LEMUS 1 Year 02/02/2019 APPOINTMENT MD LEMUS 1 Year 02/02/2019 APPOINTMENT MD LEMUS 1 Year 01/19/2019 APPOINTMENT port flush 02/02/2019 LABORDER LDH 02/02/2019 LABORDER CBC w/ [...] LDH Reason for Visit LAB 15 MIN Diagnostic Results Date Type Test Units Lower Limit Upper Limit Result Flag Comments Status Ordered By Specimen Source Lab Address 02/02 CMP-C [facility] Sodiu m mmol/L 136.0 145.0 140 FINAL [facility], [place] [address] 02/02 CMP-C [facility] Potas sium mmol/L 3.5 5.1 4.5 FINAL [facility], [place] [address] 02/02 CMP-C [facility] Chlor cristy mmol/L 98.0 107.0 103 FINAL [facility], [place] [address] 02/02 CMP-C MC CO2 mmol/L 20.0 31.0 28 FINAL [facility], [place] [address] 02/02 CMP-C [facility] Anion gap, mmol/ L mmol/L 4.0 15.0 9 FINAL [facility], [place] [address] 02/02 CMP-C [facility] BUN mg/dL 9.0 23.0 20 FINAL [facility], [place] [address] 02/02 CMP-C [facility] Creat inine mg/dL 0.5 0.8 0.87 High FINAL [facility], [place] [address] 02/02 CMP-C [facility] BUN/C reati nine ratio 23 FINAL [facility], [place] [address] 02/02 CMP-C [facility] Gluco se mg/dL 65.0 106.0 100 FINAL [facility], [place] [address] 02/02 CMP-C [facility] Calci um mg/dL 8.3 10.6 9.3 FINAL [facility], [place] [address] 02/02 CMP-C [facility] Album in gm/dL 3.4 5.0 4.1 FINAL [facility], [place] [address] 02/02 CMP-C [facility] Total prote in gm/dL 5.7 8.2 6.7 FINAL [facility], [place] [address] 02/02 CMP-C [facility] Alkal ine phosp hatas e unit/L 46.0 116.0 87 FINAL [facility], [place] [address] 02/02 [facility] ALT/S GPT unit/L 21 FINAL [facility], [place] [address] 02/02 [facility] AST/S GOT unit/L 22 FINAL [facility], [place] [address] 02/02 [facility] Bilir ubin, total mg/dL 0.1 1.2 0.4 FINAL [facility], [place] [address] 02/02 [facility] Globu sandhya gm/dL 2.6 FINAL [facility], [place] [address] 02/02 [facility] A/G ratio 1.0 2.0 2 FINAL [facility], [place] [address] 02/02 [facility] GFR non-A frica n Ameri can, estim ated mL/min /1.73m 2 >60 Estimated GFR Non calculate d using MDRD study equation. FINAL [facility], [place] [address] 02/02 [facility] GFR Afric an Ameri can, estim ated mL/min /1.73m 2 >60 Estimated GFR calculate d using MDRD study equation FINAL [facility], [place] [address] 02/02 LDH unit/L 120.0 246.0 207 FINAL [facility], [place] [address] 02/02 CBC w/ auto diff WBC 10*3/u L 4.0 10.[address] [facility]&Whole Blood [facility] ([facility]), [address], [address] [place] [address] 02/02 CBC w/ auto diff Jennifer # (ANC) 10*3/u L 1.56 6.[address] [facility]&Whole Blood [facility] ([facility]), [address], [address] [place] [address] 02/02 CBC w/ auto diff LY # 10*3/u L 1.18 3.[address] [facility]&Whole Blood [facility] ([facility]), [address], [address] [place] [address] 02/02 CBC w/ auto diff MO # 10*3/u L 0.24 0.86 0.45 FINAL [facility] B&Whole Blood [facility] ([facility]), [address], [address] [place] [address] 02/02 CBC w/ auto diff EO # 10*3/u lL 0.04 0.36 0.28 FINAL [facility]Whole Blood [facility] ([facility]), [address], [address] [place] [address] 02/02 CBC w/ auto diff BA # 10*3/u L 0.01 0.08 0.02 FINAL [facility]&Whole Blood [facility] ([facility]), [address], [address] [place] [address] 02/02 CBC w/ auto diff Jennifer % % 34.0 71.1 64.9 FINAL [facility]Whole Blood [facility] ([facility]), [address], [address] [place] [address] 02/02 CBC w/ auto diff LY % % 19.3 51.7 22.5 FINAL [facility]Whole Blood [facility] ([facility]), [address], [address] [place] [address] 02/02 CBC w/ auto diff MO % % 4.7 12.5 7.6 FINAL [facility]Whole Blood [facility] ([facility]), [address], [address] [place] [address] 02/02 CBC w/ auto diff EO % % 0.7 5.8 4.7 FINAL [facility] B&Whole Blood [facility] ([facility]), [address], [address] [place] [address] 02/02 CBC w/ auto diff BA % % 0.1 1.2 0.3 FINAL [facility]Whole Blood [facility] ([facility]), [address], [address] [place] [address] 02/02 CBC w/ auto diff RBC 10*6/u L 3.93 5.22 4.11 FINAL [facility] B&Whole Blood [facility] ([facility]), [address], [address] [place] [address] 02/02 CBC w/ auto diff HGB g/dL 11.2 15.7 11.4 FINAL [facility]&Whole Blood [facility] ([facility]), [address], [address] [place] [address] 02/02 CBC w/ auto diff HCT % 34.1 44.9 36.6 FINAL [facility] B&Whole Blood [facility] (T), [address], [address] [place] [address] 02/02 CBC w/ auto diff MCV fL 79.4 94.8 89.1 FINAL [facility] B&Whole Blood [facility] ([facility]), [address], [address] [place] [address] 02/02 CBC w/ auto diff MCH pg 25.6 32.2 27.7 FINAL [facility] B&Whole Blood [facility] (T), [address], [address] [place] [address] 02/02 CBC w/ auto diff MCHC g/dL 32.2 35.5 31.1 Low FINAL [facility] B&Whole Blood [facility] ([facility]), [address], [address] [place] [address] 02/02 CBC w/ auto diff RDW-C V, % % 11.7 14.4 14.9 High FINAL [facility] B&Whole Blood [facility] ([facility]), [address], [address] [place] [address] 02/02 CBC w/ auto diff PLT 10*3/u L 182.0 369.0 241.0 FINAL [facility] B&Whole Blood [facility] (T), [address], [address] [place] [address] 04/14 Lab Repor t See rag shredder d 06/25 Lab Repor t See rag shredder d 02/01 LDH U/L 120.0 246.0 204 FINAL [facility] S&Serum [facility] ([facility]), [address] [facility] [address] 02/01 CBC w/ auto diff WBC 10*3/u L 4.0 10.0 6.1 FINAL [facility] B&Whole Blood [facility] (T), [address], [address] [place] [address] 02/01 CBC w/ auto diff Jennifer # (ANC) 10*3/u L 1.56 6.13 4.00 FINAL [facility] B&Whole Blood [facility] (T), [address], [address] [place] [address] 02/01 CBC w/ auto diff LY # 10*3/u L 1.18 3.74 1.35 FINAL [facility]Whole Blood [facility] ([facility]), [address], [address] [place] [address] 02/01 CBC w/ auto diff MO # 10*3/u L 0.24 0.86 0.46 FINAL [facility]Whole Blood [facility] ([facility]), [address], [address] [place] [address] 02/01 CBC w/ auto diff EO # 10*3/u lL 0.04 0.36 0.25 FINAL [facility]Whole Blood [facility] ([facility]), [address], [address] [place] [address] 02/01 CBC w/ auto diff BA # 10*3/u L 0.01 0.08 0.02 FINAL [facility]Whole Blood [facility] ([facility]), [address], [address] [place] [address] 02/01 CBC w/ auto diff Jennifer % % 34.0 71.1 65.8 FINAL [facility]Whole Blood [facility] ([facility]), [address], [address] [place] [address] 02/01 CBC w/ auto diff LY % % 19.3 51.7 22.2 FINAL [facility]&Whole Blood [facility] ([facility]), [address], [address] [place] [address] 02/01 CBC w/ auto diff MO % % 4.7 12.5 7.6 FINAL [facility]Whole Blood [facility] ([facility]), [address], [address] [place] [address] 02/01 CBC w/ auto diff EO % % 0.7 5.8 4.1 FINAL [facility]Whole Blood [facility] ([facility]), [address], [address] [place] [address] 02/01 CBC w/ auto diff BA % % 0.1 1.2 0.3 FINAL [facility]&Whole Blood [facility] ([facility]), [address], [address] [place] [address] 02/01 CBC w/ auto diff RBC 10*6/u L 3.93 5.22 3.84 Low FINAL [facility] B&Whole Blood [facility] ([facility]), [address], [address] [place] [address] 02/01 CBC w/ auto diff HGB g/dL 11.2 15.7 10.9 Low FINAL [facility] B&Whole Blood [facility] (T), [address], [address] [place] [address] 02/01 CBC w/ auto diff HCT % 34.1 44.9 34.7 FINAL [facility] B&Whole Blood [facility] ([facility]), [address], [address] [place] [address] 02/01 CBC w/ auto diff MCV fL 79.4 94.8 90.4 FINAL [facility] B&Whole Blood [facility] ([facility]), [address], [address] [place] [address] 02/01 CBC w/ auto diff MCH pg 25.6 32.2 28.4 FINAL [facility] B&Whole Blood [facility] ([facility]), [address], [address] [place] [address] 02/01 CBC w/ auto diff MCHC g/dL 32.2 35.5 31.4 Low FINAL [facility] B&Whole Blood [facility] ([facility]), [address], [address] [place] [address] 02/01 CBC w/ auto diff RDW-C V, % % 11.7 14.[address] [facility]&Whole Blood [facility] ([facility]), [address], [address] [place] [address] 02/01 CBC w/ auto diff PLT 10*3/u L 182.0 369.[address] [facility]&Whole Blood [facility] ([facility]), [address], [address] [place] [address] 02/01 CMP - Core Lab Album in g/dL 3.4 5.0 3.9 FINAL [facility] S&Serum [facility] ([facility]), [address] [place] [address] 02/01 CMP - Core Lab Alkal ine phosp hatas e U/L 46.0 116.0 92 FINAL [facility] S&Serum [facility] ([facility]), [address] [place] [address] 02/01 CMP - Core Lab ALT/S GPT U/L 10.0 49.[address] [facility]&Serum [facility] ([facility]), [address] [place] [address] 02/01 CMP - Core Lab AST/S GOT U/L 0.0 34.[address] [facility]&Serum [facility] ([facility]), [address] [place] [address] 02/01 CMP - Core Lab Calci um mg/dL 8.7 10.[address] [facility]Serum [facility] ([facility]), [address] [place] [address] 02/01 CMP - Core Lab Chlor cristy mmol/L 98.0 107.[address] [facility]Serum [facility] ([facility]), [address] [place] [address] 02/01 CMP - Core Lab CO2 mmol/L 20.0 31.[address] [facility]Serum [facility] ([facility]), [address] [place] [address] 02/01 CMP - Core Lab Creat inine mg/dL 0.5 0.[address] [facility]Serum [facility] ([facility]), [address] [place] [address] 02/01 CMP - Core Lab GFR non-A frica n Ameri can, estim ated mL/min /1.73m >60.0 [facility]AL [facility]), [address] [place] [address] 02/01 CMP - Core Lab GFR Afric an Ameri can, estim ated mL/min /1.73m >60.[address] [facility]Serum [facility] ([facility]), [address] [place] [address] 02/01 CMP - Core Lab Gluco se mg/dL 74.0 106.[address] [facility]Serum [facility] ([facility]), [address] [place] [address] 02/01 CMP - Core Lab Potas sium mmol/L 3.5 5.1 [address] [facility]Serum [facility] ([facility]), [address] [place] [address] 02/01 CMP - Core Lab Sodiu m mmol/L 136.0 145.0 140 FINAL [facility] ([facility]), [address] [place] [address] 02/01 CMP - Core Lab Anion gap, mmol/ L mmol/L 4.0 15.0 7.7 FINAL [facility] ([facility]), [address] [place] [address] 02/01 CMP - Core Lab Bilir ubin, total mg/dL 0.3 1.2 0.4 FINAL [facility] ([facility]), [address] [place] [address] 02/01 CMP - Core Lab Total prote in g/dL 5.7 8.2 6.6 FINAL [facility] ([facility]), [address] [place] [address] 02/01 CMP - Core Lab A/G ratio 1.0 2.0 1.4 FINAL [facility] ([facility]), [address] [place] [address] 02/01 CMP - Core Lab BUN mg/dL 9.0 23.0 18 FINAL [facility] ([facility]), [address] [place] [address] 02/01 CMP - Core Lab BUN/C reati nine ratio 0.0 25.0 25.0 FINAL [facility] ([facility]), [address] [place] [address] 02/26 CBC w/ auto diff WBC 10*3/u L 4.0 10.0 6.5 FINAL [facility] ([facility]), [address], [address] [facility] [address] 02/26 CBC w/ auto diff Jennifer # (ANC) 10*3/u L 1.56 6.13 4.17 FINAL [facility] ([facility]), [address], [address] [place] [address] 02/26 CBC w/ auto diff LY # 10*3/u L 1.18 3.74 1.55 FINAL [facility] ([facility]), [address], [address] [place] [address] 02/26 CBC w/ auto diff MO # 10*3/u L 0.24 0.86 0.48 FINAL [facility] [address], [address] [place] [address] 02/26 CBC w/ auto diff EO # 10*3/u lL 0.04 0.36 0.29 FINAL [facility] ([facility]), [address], [address] [place] [address] 02/26 CBC w/ auto diff BA # 10*3/u L 0.01 0.08 0.04 FINAL [facility] ([facility]), [address], [address] [place] [address] 02/26 CBC w/ auto diff Jennifer % % 34.0 71.1 63.9 FINAL [facility] ([facility]), [address], [address] [place] [address] 02/26 CBC w/ auto diff LY % % 19.3 51.7 23.7 FINAL [facility] ([facility]), [address], [address] [place] [address] 02/26 CBC w/ auto diff MO % % 4.7 12.5 7.4 FINAL [facility]), [address], [address] [place] [address] 02/26 CBC w/ auto diff EO % % 0.7 5.8 4.4 FINAL [facility] ([facility]), [address], [address] [place] [address] 02/26 CBC w/ auto diff BA % % 0.1 1.2 0.6 FINAL [facility] ([facility]), [address], [address] [place] [address] 02/26 CBC w/ auto diff RBC 10*6/u L 3.93 5.22 3.95 FINAL [facility] ([facility]), [address], [address] [place] [address] 02/26 CBC w/ auto diff HGB g/dL 11.2 15.7 10.9 Low FINAL [facility] ([facility]), [address], [address] [place] [address] 02/26 CBC w/ auto diff HCT % 34.1 44.9 34.9 FINAL [facility] ([facility]), [address], [address] [place] [address] 02/26 CBC w/ auto diff MCV fL 79.4 94.8 88.4 FINAL [facility] (T), [address], [address] [place] [address] 02/26 CBC w/ auto diff MCH pg 25.6 32.2 27.6 FINAL [facility] (T), [address], [address] [place] [address] 02/26 CBC w/ auto diff MCHC g/dL 32.2 35.5 31.2 Low FINAL [facility] (T), [address], [address] [place] [address] 02/26 CBC w/ auto diff RDW-C V, % % 11.7 14.4 14.1 FINAL [facility] (T), [address], [address] [place] [address] 02/26 CBC w/ auto diff PLT 10*3/u L 182.0 369.0 258.0 FINAL [facility] (T), [address], [address] [place] [address] 02/26 CMP - Core Lab Sodiu m mmol/L 136.0 145.0 141 FINAL [facility] ([facility]), [address] [place] [address] 02/26 CMP - Core Lab Potas sium mmol/L 3.5 5.1 4.7 FINAL [facility] ([facility]), [address] [place] [address] 02/26 CMP - Core Lab Chlor cristy mmol/L 98.0 107.0 108 High FINAL Vinicio [facility] ([facility]), [address] [place] [address] 02/26 CMP - Core Lab CO2 mmol/L 20.0 31.0 25.2 FINAL [facility] ([facility]), [address] [place] [address] 02/26 CMP - Core Lab Anion gap, mmol/ L mmol/L 4.0 15.0 7.8 FINAL [facility] ([facility]), [address] [place] [address] 02/26 CMP - Core Lab BUN mg/dL 9.0 23.0 16 FINAL [facility] ([facility]), [address] [place] [address] 02/26 CMP - Core Lab BUN/C reati nine ratio 0.0 25.0 18.8 FINAL [facility] ([facility]), [address] [place] [address] 02/26 CMP - Core Lab Creat inine mg/dL 0.5 0.8 0.85 High FINAL [facility] ([facility]), [address] [place] [address] 02/26 CMP - Core Lab GFR non-A frica n Ameri can, estim ated mL/min /1.73m >60.0 FINAL [facility] ([facility]), [address] [place] [address] 02/26 CMP - Core Lab GFR Afric an Ameri can, estim ated mL/min /1.73m >60.0 FINAL [facility] ([facility]), [address] [place] [address] 02/26 CMP - Core Lab Gluco se mg/dL 74.0 106.0 96 FINAL [facility] ([facility]), [address] [place] [address] 02/26 CMP - Core Lab Calci um mg/dL 8.7 10.6 9.2 FINAL [facility] ([facility]), [address] [place] [address] 02/26 CMP - Core Lab Album in g/dL 3.4 5.0 3.7 FINAL [facility] ([facility]), [address] [place] [address] 02/26 CMP - Core Lab Total prote in g/dL 5.7 8.2 6.8 FINAL [facility] ([facility]), [address] [place] [address] 02/26 CMP - Core Lab A/G ratio 1.0 2.0 1.2 FINAL Vinicio [facility]), [address] [place] [address] 02/26 CMP - Core Lab Alkal ine phosp hatas e U/L 46.0 116.0 94 FINAL Vinicio [facility]), [address] [place] [address] 02/26 CMP - Core Lab ALT/S GPT U/L 10.0 49.0 28 FINAL Vinicio [facility]), [address] [place] [address] 02/26 CMP - Core Lab AST/S GOT U/L 0.0 34.0 22 FINAL Vinicio [facility]), [address] [place] [address] 02/26 CMP - Core Lab Bilir ubin, total mg/dL 0.3 1.2 0.3 FINAL Vinicio [facility]), [address] [place] [address] 02/26 LDH U/L 120.0 246.0 189 FINAL Vinicio [facility]), [address] [place] [address] Medications Date Name Route Dose Frequency Instructions [...] 2 times per day 017 active 017 Lisinopril-[place] chlorothiazide Oral 20 mg-12.5 mg Oral 2.0 1 2 tabs daily 017 active Problems Diagnosis Status Date of Diagnosi s Diabetes mellitus type 2 (disorder) Active Hypertensive disorder, systemic arterial (disord er) Active Primary hypercholesterolemia (disorder) Active History of malignant lymphoma (situation) Active Diffuse non-Hodgkin's lymphoma, 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 Vital Signs Date Type Value 01/19/2019 BSA 1.96 01/19/2019 Body Temperature 98.40 01/19/2019 Heart Beat 70.00 01/19/2019 Respiratory Rate 15.00 01/19/2019 Intravascular Systolic 121 01/19/2019 Intravascular Diastolic 63 01/19/2019 Pain Scale 0.00 01/19/2019 Weight 179.50 01/19/2019 Height 67.00 01/19/2019 BMI 28.11 02/02/2019 BSA 1.94 02/02/2019 Body Temperature 98.80 02/02/2019 Heart Beat 68.00 02/02/2019 Respiratory Rate 14.00 02/02/2019 BMI 27.47 02/02/2019 Pain Scale 0.00 02/02/2019 Weight 175.40 02/02/2019 Height 67.00 02/02/2019 Intravascular Systolic 122 02/02/2019 Intravascular Diastolic 74 02/02/2020 BSA 1.95 02/02/2020 BMI 27.69 02/02/2020 [...] Print Location: Unknown Date/Time Printed: 11/03/2024 10:43 ([facility]) Patient: WENDY BLACKMAN Sex: Female : 1940 [...] IRRIGAJ IMPLNTD VENOUS ACCESS DRUG DELIVERY SYST ([id number]) Entered By Sophy Cho RN; Incident to Michael Shaikh MD ;Missing information: Billing problem(s)
--- OUTSIDE RECORDS SUMMARY | 2024-11-03 10:43 | XMS_ITS | Patient Health Record ---
Author Organization [facility] Address [address] [facility] 36 [facility] [address] [place] [id number] Care Team Providers Care Computer Methods Analyst Name Role Phone Maritza Chauhanian Primary Care Provider Allergies Allergen (clinical drug [...] 50 Performing Lab: Notes/Report: Test performed by [facility], [place] [address] [place] [address] , [address], [place] [address] Arnulfo Metcalf MD, Substation Manager CLIA: [id number] Sodium 137 135-145 mmol/L Potassium 4.5 3.5-5.3 [...] Normal Performing Lab: Notes/Report: Test performed by [facility], [address] , [place] [address] Arnulfo Metcalf MD, Substation Manager CLIA: [id number] Cholesterol 121 <200 mg/dL Triglycerides 121 <150 [...] Normal Performing Lab: Notes/Report: Test performed by [facility] [address] [place] [address] , [address], [place] [address] Arnulfo Metcalf MD, Substation Manager CLIA: [id number] TSH reflex to FT4 1.37 0.43-5.25 mU/L P-Microalbumin/Creatinine, R andom Urine Sample Reviewed date:05/05/2024 09:00:25 AM Interpretation:a/c 30 Performing Lab: Notes/Report: Test performed by [facility] [address] [place] [address] , [address], [place] [address] Arnulfo Metcalf MD, Substation Manager CLIA: [id number] Albumin/Creatinine Ratio, Urine 30 0-30 ug/m g Microalbumin, Urine, Random 1.1 Creatinine, Urine 36.4 Reason For Referral No Information Medications Medication SIG (Take, Route, Frequency, Duration) Notes Start Date End Date Status Ocuvite Adult 50+ - as directed Orally Active Tylenol 8 Hour 650 MG 2 tablets as neede d Orally every 8 hrs Active Potassium Chloride ER 10 MEQ TAKE 1 TABLET 3 TIMES A DAY for 90 days Active ZyrTEC Allergy 10 MG 1 tab(s) orally onc e a day Active Lisinopril-hydroCHLOROthiaz cristy 20-12.5 MG TAKE 2 TABLETS ONCE DAILY for 90 days Active Vitamin D3 125 MCG (5000 UT) as directed orally once a week Active amLODIPine Besylate 5 MG TAKE 1 TABLET O NCE DAILY for 90 days Active Vitamin C 1000 MG 1 tab(s) orally once a day for 30 day(s) Active metFORMIN HCl 500 MG 1 tab(s) orally 2 t imes a day for 90 days Active traMADol HCl 50 MG 2 tab(s) orally thre e times daily Active Atorvastatin Calcium 20 MG TAKE 1 TABLET ONCE DAILY for 90 days Active Immunizations Vaccine Route Administration Date Status Comme nts COVID 19 Moderna Unknown 08/02/2020 Administered COVID 19 Moderna Unknown 04/04/2021 Administered COVID 19 Moderna Unknown 09/19/2021 Administered Fluzone High Dose (65yr and older) IM Intramuscular 03/29/2020 Administered Fluzone High Dose (65yr and older) Unknown 03/13/2022 Administered Fluzone High Dose (65yr and older) Unknown 02/27/2023 Administered PNEUMOVAX 23 VACCINE IM Intramuscular 04/30/2021 Administe red Prevnar (PCV20) IM Intramuscular 04/30/2022 Administered Shingrix Unknown 02/23/2021 Administered Shingrix Unknown 05/04/2021 Administered Problems Problem Type SNOMED Code ICD Code Onset Dates Problem Status W/U Status Risk Notes Problem 93418005 Hypokalemia (E87.6) Active confirmed Problem 62991869 Essential hypert ension (I10) Active confirmed Problem 767229147 Type 2 diabetes mellitus without complication, without long-term current use of insulin (E11.9) Active confirmed Problem Generalized anxiety disorder (91733170) TIANA (generalized anxiety disorder) (F41.1) Active confirmed Problem 957369588 Pure hypercholesterolemia (E78.00) Active confirmed Problem 0709875469142682 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) Active confirmed Problem 78695386 Allergic rhiniti s, unspecified seasonality, unspecified trigger (J30.9) Active confirmed Problem 197178954 CKD stage 3a, GF R 45-59 ml/min (N18.31) Active confirmed Vital Signs Heart Rate 75 /min 11/03/2024 Blood pressure diastolic 82 mm Hg 11/03/2024 Height 65.50 in 11/03/2024 Blood pressure systolic 132 mm Hg 11/03/2024 Weight 165.4 lbs 11/03/2024 BMI 27.1 kg/m2 11/03/2024 Encounters Encounter Location Date Provider Diagnosis Jonathan [address] [place] [id number] 04/30/2024 Mathieu Chauhan Type 2 diabetes jae itus without complication, without long-term current use of insulin E11.9 ; Essential hypertension I10 ; Pure hypercholesterolemia E78.00 ; Allergic rhinitis, unspecified seasonality, unspecified trigger J30.9 and [facility]okalemia E87.6 [facility] [address] [place] [id number] 11/03/2024 Mathieu Chauhan Arthritis of right h ip M16.11 ; Pre-op exam Z01.818 ; Pain in right hip M25.551 ; Type 2 diabetes mellitus without complication, without long-term current use of insulin E11.9 ; Essential hypertension I10 ; Pure hypercholesterolemia E78.00 ; CKD stage 3a, GFR 45-59 ml/min N18.31 and Hypokalemia E87.6 [facility] [address] [place] [id number] 05/05/2024 Mathieu Chauhan Assessments Encounter Date Diagnosis (ICD Code) Assessment Notes Treatment Notes Treatment Clinical Notes Section Notes 04/30/2024 Essential hypertensi on (ICD-10 - I10) 04/30/2024 Type 2 diabetes jae itus without complication, without long-term current use of insulin (ICD-10 - E11.9) 11/03/2024 Pre-op exam (ICD-10 - Z01.818) 11/03/2024 Arthritis of right h ip (ICD-10 - M16.11) 11/03/2024 Pain in right hip (ICD-10 - M25.551) 04/30/2024 Pure hypercholesterolemia (ICD-10 - E78.00) 04/30/2024 Allergic rhinitis, unspecified seasonality, unspecified trigger (ICD-10 - J30.9) 11/03/2024 Type 2 diabetes jae itus without complication, without long-term current use of insulin (ICD-10 - E11.9) 04/30/2024 Hypokalemia (ICD-10 - E87.6) 11/03/2024 Essential hypertensi on (ICD-10 - I10) 11/03/2024 Pure hypercholesterolemia (ICD-10 - E78.00) 11/03/2024 CKD stage 3a, GFR 45 -59 ml/min (ICD-10 - N18.31) 11/03/2024 Hypokalemia (ICD-10 - E87.6) Plan Of Treatment Pending Test Test Name Order Date EKG 11/03/2024 CXR 11/03/2024 LC-Hemoglobin A1c 04/30/2021 H-CBC 11/03/2024 H-UA 11/03/2024 H-CMP 11/03/2024 H-Glycohemoglobin A1C 11/03/2024 H-PHOS 11/03/2024 Next Appt Details Provider Name:Mathieu rhodes, 11/03/2024 10:00:00 AM, [address] [place] [address] 36 [facility], [facility] [address], [place], [place], [phone], Provider Name:Mathieu rhodes, 05/05/2025 10:30:00 AM, [address] [facility] 36 [facility], [facility], [place], [place], [id number], Insurance Providers Payer Name Payer Address Payer Phone Subscriber Number Group Number Insured Name Patient Relationship to Insured Coverage Start Date Coverage End Date MEDICARE PART B [address] [address] [id number] [place]lette villa Self - patient is the insured [employer] [address] [place] [address] [phone] [id number] JoseeCollette villa Self - patient is the insured Medical (General) History Medical History History ICD Code Lymphoma dx. 2012 - Oncologi - Dr. Jolley - [facility] [place] Hypertension Hyperlipidemia Diabetes Type 2 Seasonal Allergies Arthritis, multiple joints Anxiety disorder Multiple right humerus fract ures due to Lymphoma, s/p multiple surgical procedures Surgical History Surgery Date(Month/Year) Tonsillectomy Hysterectomy Bilateral Cataract Repair - YAG Laser RT Shoulder Replacement RT Arm Lymphoma x3
--- OUTSIDE RECORDS SUMMARY | 2024-11-03 10:43 | XMS_ITS | CCD ---
Author Name Interface, [email or web address] Address [address] [place], [place] [id number] Organization [facility] Address [address] [place] [id number] Care Team Providers Care Language Translator Name Role Phone Vinicio Levy Unavailable Unavailable Care Plan Reason for Visit Encounters Functional Status Medications Problems Social History
--- OUTSIDE RECORDS SUMMARY | 2024-11-03 10:43 | XMS_ITS ---
Author Name Interface, [id number] lity Address [address] [place] [address] Organization [facility] Address [address] [place] [address] Care Team Providers Care Sales Rep Name Role Phone Darcy Funk Unavailable Unavailable Allergies and Adverse Reactions Medication/Group [...] 1 YR F/Babita 08/13/2017 APPOINTMENT 1 YR F/Babita 08/12/2017 APPOINTMENT PORT FLUSH 06/03/2017 APPOINTMENT PORT FLUSH 04/09/2017 APPOINTMENT PORT FLUSH 02/12/2017 APPOINTMENT JERRY F/U + INJ 02/12/2017 APPOINTMENT JERRY F/U + INJ 02/12/2017 APPOINTMENT JERRY F/U + INJ 02/12/2017 APPOINTMENT JERRY F/U + INJ 02/12/2017 APPOINTMENT JERRY F/U + INJ 02/12/2017 APPOINTMENT PORT FLUSH 02/12/2017 LABORDER CMP 02/12/2017 LABORDER CBC w/ auto diff 08/12/2017 LABORDER CMP 08/12/2017 LABORDER Hgb A1c [...] Visit LAB 15 MIN Encounters Date Name 02/12/2017 Diffuse non-Hodgkin' s lymphoma, large cell (disorder) 02/12/2017 History of malignant lymphoma (situation) Immunizations Date Name Route Dose Instructions Refusal Reason Stat Flu vaccine - Adult Flu vaccine - Adult Diagnostic Results Date Type Test Units Lower Limit Upper Limit Result Flag Comments Status Ordered By Specimen Source Lab Address 02/12 CMP Album in G/DL 3.3 5.5 3.7 FINAL Darcy [facility] (AND), [place] [address] [place] [address] 02/12 CMP Alkal ine phosp hatas e U/L 42.0 141.0 66 FINAL [facility] (AND), [place] [address] [place] [address] 02/12 CMP ALT/S GPT U/L 10.0 47.0 19 FINAL [facility] (AND), [place] [address] [place] [address] 02/12 CMP AST/S GOT U/L 11.0 38.0 22 FINAL [facility] (AND), [place] [address] [place] [address] 02/12 CMP Bilir ubin, total MG/DL 0.2 1.6 0.6 FINAL [facility] (AND), [place] [address] [place] [address] 02/12 CMP BUN MG/DL 7.0 22.0 14 FINAL [facility] (AND), [place] [address] [place] [address] 02/12 CMP Calci um MG/DL 8.0 10.3 9.0 FINAL [facility] (AND), [place] [address] [place] [address] 02/12 CMP Chlor cristy mmol/L 98.0 108.0 106 FINAL [facility] (AND), [place] [address] [place] [address] 02/12 CMP Creat inine MG/DL 0.6 1.2 1.1 FINAL [facility] (AND), [place] [address] [place] [address] 02/12 CMP GFR non-A frica n Ameri can, estim ated mL/min /1.73m 2 51.6 Low FINAL Darcy [facility] (AND), [address] [place] [address] 02/12 CMP GFR Afric an Ameri can, estim ated mL/min /1.73m 2 60.0 FINAL Darcy Chiki [facility] (AND), [place] [address] [place] [address] 02/12 CMP CO2 mmol/L 18.0 33.0 28 FINAL Darcy Chiki [facility] (AND), [place] [address] [place] [address] 02/12 CMP Gluco se MG/DL 73.0 118.0 89 FINAL Darcy Chiki [facility] (AND), [place] [address] [place] [address] 02/12 CMP Potas sium mmol/L 3.6 5.1 4.2 FINAL Darcy Chiki [facility] (AND), [place] [address] [place] [address] 02/12 CMP Total prote in G/DL 6.4 8.1 6.6 FINAL Darcy Chiki [facility] (AND), [place] [address] [place] [address] 02/12 CMP Sodiu m mmol/L 128.0 145.0 135 FINAL Darcy Chiki [facility] (AND), [place] [address] [place] [address] 02/12 CBC w/ auto diff WBC 10*3/u L 4.0 10.0 6.0 FINAL Darcy Chiki [facility] (AND), [place] [address] [place] [address] 02/12 CBC w/ auto diff Jennifer # (ANC) 10*3/u L 1.6 6.1 4.2 FINAL Darcy Chiki [facility] (AND), [place] [address] [place] [address] 02/12 CBC w/ auto diff LY # 10*3/u L 1.2 3.7 1.2 FINAL Darcy [facility] (AND), [place] [address] [place] [address] 02/12 CBC w/ auto diff MO # 10*3/u L 0.2 0.9 0.4 FINAL Darcy [facility] (AND), [place] [address] [place] [address] 02/12 CBC w/ auto diff EO # 10*3/u lL 0.0 0.4 0.2 FINAL Darcy Chiki [facility] (AND), [address] [place] [address] 02/12 CBC w/ auto diff BA # 10*3/u L 0.0 0.1 0.0 Low FINAL Darcy Chiki [facility] (AND), [address] [place] [address] 02/12 CBC w/ auto diff Jennifer % % 34.0 71.1 69.2 FINAL Darcy Chiki [facility] (AND), [address] [place] [address] 02/12 CBC w/ auto diff LY % % 19.3 51.7 20.0 FINAL Darcy Chiki [facility] (AND), [address] [place] [address] 02/12 CBC w/ auto diff MO % % 4.7 12.5 6.8 FINAL Darcy Chiki [facility] (AND), [place] [address] [place] [address] 02/12 CBC w/ auto diff EO % % 0.7 5.8 3.7 FINAL Darcy Chiki [facility] (AND), [address] [place] [address] 02/12 CBC w/ auto diff BA % % 0.1 1.2 0.3 FINAL Darcy Chiki [facility] (AND), [address] [place] [address] 02/12 CBC w/ auto diff RBC 10*6/u L 3.93 5.22 3.91 Low FINAL Darcy Chiki [facility] (AND), [address] [place] [address] 02/12 CBC w/ auto diff HGB g/dL 11.2 15.7 11.1 Low FINAL Darcy Chiki [facility] (AND), [address] [place] [address] 02/12 CBC w/ auto diff HCT % 34.1 44.9 36.0 FINAL Darcy Chiki [facility] (AND), [address] [place] [address] 02/12 CBC w/ auto diff MCV fL 79.4 94.8 92.1 FINAL Darcy Chiki [facility] (AND), [address] [place], [place] [address] 02/12 CBC w/ auto diff MCH pg 25.6 32.2 28.4 FINAL Darcy Funk [facility] (AND), [address] [place], [place] [address] 02/12 CBC w/ auto diff MCHC g/dL 32.2 35.5 30.8 Low FINAL Darcy Monet [facility] (AND), [address] [place] [address] 02/12 CBC w/ auto diff RDW-C V, % % 11.7 14.4 13.5 FINAL Darcy Monet [facility] (AND), [address] [place] [address] 02/12 CBC w/ auto diff PLT 10*3/u L 182.0 369.0 170.0 Low FINAL Darcy Monet [facility] (AND), [address] [place] [address] 03/11 Hgb A1c % 5.7 Comment:D iagnosis of Diabetes: >or = 6.5%Incre ased risk of diabetes (Prediabe sharon): 5.7-6.4%G lycemic Control: Nonpregna nt Adults: <7.0% : <6.0% FINAL 03/11 Estim ated [place] ge Gluco se mg/dL 116.9 FINAL 03/11 Sodiu m mmol/L 136.0 145.0 145 FINAL [facility] 03/11 Potas sium mmol/L 3.5 5.1 4.7 FINAL [facility] 03/11 Chlor cristy mmol/L 99.0 110.0 99 FINAL [facility] 03/11 CO2 mmol/L 21.0 32.0 22 FINAL [facility] 03/11 Anion gap 3.0 16.0 24 High FINAL [facility] 03/11 Gluco se mg/dL 70.0 99.0 87 FINAL [facility] 03/11 BUN mg/dL 7.0 20.0 20 FINAL [facility] 03/11 Creat inine mg/dL 0.6 1.2 0.9 FINAL [facility] 03/11 GFR estim ate >60 >60 mL/min/1. 73m2 EGFR, calc. for ages 18 and older using theMDRD formula (not corrected for weight), is valid for stableren al function. FINAL [facility] 03/11 GFR Afric an Ameri can, estim ated >60 Chronic Kidney Disease: less than 60 ml/min/1. 73 sq.m. Kidney Failure: less than 15 ml/min/1. 73 sq.m.Resu lts valid for patients 18 years and older. FINAL [facility] 03/11 Calci um mg/dL 8.3 10.6 9.6 FINAL [facility] 03/11 Total prote in g/dL 6.4 8.2 7.6 FINAL [facility] 03/11 Album in g/dL 3.4 5.0 4.4 FINAL [facility] 03/11 A/G ratio 1.1 2.2 1.4 FINAL [facility] 03/11 Bilir ubin, total mg/dL 0.0 1.0 0.4 FINAL [facility] 03/11 Alkal ine phosp hatas e U/L 40.0 129.0 83 FINAL [facility] 03/11 ALT/S GPT U/L 10.0 40.0 15 FINAL [facility] 03/11 AST/S GOT U/L 15.0 37.0 17 FINAL [facility] 03/11 Globu sandhya g/dL 3.2 FINAL [facility] 03/11 Mallika stero l mg/dL 0.0 199.0 155 FINAL [facility] 03/11 Trigl yceri cira mg/dL 0.0 150.0 140 FINAL [facility] 03/11 HDL mallika stero l mg/dL 40.0 60.0 80 High FINAL [facility] 03/11 LDL mallika stero l, calcu lated mg/dL 47 FINAL [facility] 03/11 VLDL mallika stero l, calcu lated mg/dL 28 FINAL [facility] 03/11 TSH uIU/mL 0.27 4.2 1.74 FINAL [facility] 03/11 WBC K/uL 4.0 11.0 6.1 FINAL 03/11 RBC M/uL 4.0 5.2 4.03 FINAL 03/11 HGB g/dL 12.0 16.0 11.6 Low FINAL 03/11 HCT % 36.0 48.0 35.3 Low FINAL 03/11 MCV fL 80.0 100.0 87.7 FINAL 03/11 MCH pg 26.0 34.0 28.8 FINAL 03/11 MCHC g/dL 31.0 36.0 32.9 FINAL 03/11 RDW % 12.4 15.4 14.5 FINAL 03/11 PLT K/uL 135.0 450.0 238 FINAL 03/11 MPV fL 5.0 10.5 8.9 FINAL 08/12 Lipid panel HDL mallika stero l mg/dL 75 Age Range Low Borderlin e Low Acceptabl eChild/Ad ol. <40 mg/dL 40-45 mg/dL >45 mg/dLAdul t <40 mg/dL 40-59 mg/dL >59 mg/dL FINAL Vinicio [facility] [place] [address] 08/12 Lipid panel Mallika stero l mg/dL 118 Age Range Desirable Borderlin e High High RiskChild /Adol. <170 mg/dL 170-199 mg/dL >=200 mg/dLAdul t <200 mg/dL 200-239 mg/dL >=240 mg/dL FINAL Vinicio [facility] [place] [address] 08/12 Lipid panel Trigl yceri cira mg/dL 113 Age Range Acceptabl e Borderlin e High High Very HighChild (2-9Yrs) <75 mg/dL 75-99 mg/dL >=100 mg/dLAdol ayeyml18- 18 Yrs <90 mg/dL 90-129 mg/dL >=130 mg/dLAdul t>18 Yrs <150 mg/dL 150-199 mg/dL 200-499 mg/dL >=500mg/d L FINAL Vinicio [facility] [place] [address] 08/12 Lipid panel LDL mallika stero l, calcu lated mg/dL 20 Age Range Acceptabl e Borderlin e High HighChild /Adol. <110 mg/dL 110-129 mg/dL >=130 mg/dLAdul t <100 mg/dL 100-159 mg/dL >=160mg/d L FINAL Vinicio [facility] [place] [address] 08/12 CBC w/ auto diff WBC 10*3/u L 4.0 10.0 6.6 FINAL Vinicio Cam [facility] (AND), [address] [place] [address] [place] [address] 08/12 CBC w/ auto diff Jennifer # (ANC) 10*3/u L 1.56 6.13 4.39 FINAL Vinicio Cam [facility] (AND), [address] #[facility] [place] [address] 08/12 CBC w/ auto diff LY # 10*3/u L 1.18 3.74 1.51 FINAL Vinicio Cam [facility] (AND), [address] #[facility] [place] [address] 08/12 CBC w/ auto diff MO # 10*3/u L 0.24 0.86 0.49 FINAL Vinicio Cam [facility] (AND), [address] [place] [address] 08/12 CBC w/ auto diff EO # 10*3/u lL 0.04 0.36 0.21 FINAL Vinicio Cam Blake[facility] (AND), [address] #[facility] [place] [address] 08/12 CBC w/ auto diff BA # 10*3/u L 0.01 0.08 0.03 FINAL Vinicio Cam [facility] (AND), [address] #[facility] [place] [address] 08/12 CBC w/ auto diff Jennifer % % 34.0 71.1 66.1 FINAL Vinicio Cam [facility] (AND), [address] [place], [place] [address] 08/12 CBC w/ auto diff LY % % 19.3 51.7 22.8 FINAL Vinicio Cam [facility] (AND), [address] #[facility] [place] [address] 08/12 CBC w/ auto diff MO % % 4.7 12.5 7.4 FINAL Vinicio Cam [facility] (AND), [address] #[facility] [place] [address] 08/12 CBC w/ auto diff EO % % 0.7 5.8 3.2 FINAL Vinicio Cam [facility] (AND), [address] #[facility] [place] [address] 08/12 CBC w/ auto diff BA % % 0.1 1.2 0.5 FINAL Vinicio [facility] (AND), [address] [place] [address] 08/12 CBC w/ auto diff RBC 10*6/u L 3.93 5.22 3.68 Low FINAL Vinicio [facility] (AND), [address] [place] [address] 08/12 CBC w/ auto diff HGB g/dL 11.2 15.7 10.4 Low FINAL Vinicio [facility] Blood [facility] (AND), [address] [place] [address] 08/12 CBC w/ auto diff HCT % 34.1 44.9 33.1 Low FINAL Vinicio [facility] (AND), [place] [address] [place] [address] 08/12 CBC w/ auto diff MCV fL 79.4 94.8 89.9 FINAL Vinicio [facility] Blood [facility] (AND), [place] [address] [place] [address] 08/12 CBC w/ auto diff MCH pg 25.6 32.2 28.3 FINAL Vinicio [facility]Whole Blood [facility] (AND), [place] [address] [place] [address] 08/12 CBC w/ auto diff MCHC g/dL 32.2 35.5 31.4 Low FINAL Vinicio [facility] Blood [facility] (AND), [place] [address] [place] [address] 08/12 CBC w/ auto diff RDW-C V, % % 11.7 14.4 13.7 FINAL Vinicio [facility]Whole Blood [facility] (AND), [place] [address] [place] [address] 08/12 CBC w/ auto diff PLT 10*3/u L 182.0 369.0 229.0 FINAL Vinicio [facility]Whole Blood [facility] (AND), [place] [address] [place] [address] 08/12 CMP Alkal ine phosp hatas e U/L 42.0 141.0 64 FINAL Vinicio [facility] S&Serum [facility] (AND), [place] [address] [place] [address] 08/12 CMP ALT/S GPT U/L 10.0 47.0 21 FINAL Vinicio [facility] (AND), [address] #[facility] [place] [address] 08/12 CMP AST/S GOT U/L 11.0 38.0 25 FINAL Vinicio [facility] (AND), [address] #[facility] [place] [address] 08/12 CMP Bilir ubin, total MG/DL 0.2 1.6 0.7 FINAL Vinicio [facility] (AND), [place] [address] #[facility] [place] [address] 08/12 CMP BUN MG/DL 7.0 22.0 16 FINAL Vinicio [facility] (AND), [place] [address] #[facility] [place] [facility] 08/12 CMP Calci um MG/DL 8.0 10.3 8.9 FINAL Vinicio [facility] (AND), [place] [address] #[facility] [place] [address] 08/12 CMP Chlor cristy mmol/L 98.0 108.0 100 FINAL Vinicio [facility] (AND), [place] [address] #[facility] [place] [address] 08/12 CMP Creat inine MG/DL 0.6 1.2 0.8 FINAL Vinicio [facility] (AND), [address] #[facility] [place] [address] 08/12 CMP GFR non-A frica n Ameri can, estim ated mL/min /1.73m 2 >60.0 FINAL Vinicio [facility] (AND), [place] [address] #[facility] [place] [address] 08/12 CMP GFR Afric an Ameri can, estim ated mL/min /1.73m 2 >60.0 FINAL Vinicio [facility] (AND), [place] [address] [facility] [place] [address] 08/12 CMP CO2 mmol/L 18.0 33.0 27 FINAL Vinicio [facility] (AND), [place] [address] [facility] [place] [address] 08/12 CMP Gluco se MG/DL 73.0 118.0 82 FINAL Vinicio [facility] (AND), [place] [address] [facility] [place] [address] 08/12 CMP Potas sium mmol/L 3.6 5.1 4.1 FINAL Vinicio [facility] (AND), [address] #[facility] [address] 08/12 CMP Total prote in G/DL 6.4 8.1 7.0 FINAL Vinicio [facility] (AND), [address] #[facility] [address] 08/12 CMP Sodiu m mmol/L 128.0 145.0 141 FINAL Vinicio [facility] (AND), [address] #[facility] [address] 08/12 CMP Album in G/DL 3.3 5.5 3.9 FINAL Vinicio [facility] (AND), [place] [address] #[facility] [address] 08/12 Hgb A1c % 6.0 FINAL Vinicio [facility] Blood [facility] [place] [address] 01/19 Lab Repor t See dermatopathologist d 02/03 CBC w/ auto diff WBC 10*3/u L 4.0 10.0 6.5 FINAL Vinicio [facility]Whole Blood [facility] (AND), [place] [address] #[facility] [address] 02/03 CBC w/ auto diff Jennifer # (ANC) 10*3/u L 1.56 6.13 4.48 FINAL Vinicio [facility]Whole Blood [facility] (AND), [place] [address] #[facility] [address] 02/03 CBC w/ auto diff LY # 10*3/u L 1.18 3.74 1.23 FINAL Vinicio [facility] Blood [facility] (AND), [place] [address] [address] 02/03 CBC w/ auto diff MO # 10*3/u L 0.24 0.86 0.47 FINAL Vinicio [facility]Whole Blood [facility] (AND), [place] [address] #[facility] [address] 02/03 CBC w/ auto diff EO # 10*3/u lL 0.04 0.36 0.25 FINAL Vinicio [facility]Whole Blood [facility] (AND), [place] [address] #[facility] [address] 02/03 CBC w/ auto diff BA # 10*3/u L 0.01 0.08 0.04 FINAL Vinicio [facility] Blood [facility] (AND), [address] [place] [address] 02/03 CBC w/ auto diff Jennifer % % 34.0 71.1 69.2 FINAL Vinicio [facility] Blood [facility] (AND), [address] [place] [address] 02/03 CBC w/ auto diff LY % % 19.3 51.7 19.0 Low FINAL Vinicio [facility]Whole Blood [facility] (AND), [place] [address] [place] [address] 02/03 CBC w/ auto diff MO % % 4.7 12.5 7.3 FINAL Vinicio [facility]Whole Blood [facility] (AND), [place] [address] [place] [address] 02/03 CBC w/ auto diff EO % % 0.7 5.8 3.9 FINAL Vinicio [facility] Blood [facility] (AND), [place] [address] [place] [address] 02/03 CBC w/ auto diff BA % % 0.1 1.2 0.6 FINAL Vinicio [facility]Whole Blood [facility] (AND), [place] [address] [place] [address] 02/03 CBC w/ auto diff RBC 10*6/u L 3.93 5.22 4.20 FINAL Vinicio [facility]Whole Blood [facility] (AND), [place] [address] [place] [address] 02/03 CBC w/ auto diff HGB g/dL 11.2 15.7 11.9 FINAL Vinicio [facility]Whole Blood [facility] (AND), [place] [address] [place] [address] 02/03 CBC w/ auto diff HCT % 34.1 44.9 38.1 FINAL Vinicio [facility] Blood [facility] (AND), [place] [address] [place] [address] 02/03 CBC w/ auto diff MCV fL 79.4 94.8 90.7 FINAL Vinicio [facility]Whole Blood [facility] (AND), [place] [address] [place] [address] 02/03 CBC w/ auto diff MCH pg 25.6 32.2 28.3 FINAL Vinicio [facility]Whole Blood [facility] (AND), [place] [address] [place] [address] 02/03 CBC w/ auto diff MCHC g/dL 32.2 35.5 31.2 Low FINAL Vinicio [facility] B&Whole Blood [facility] (AND), [address] [place] [address] 02/03 CBC w/ auto diff RDW-C V, % % 11.7 14.4 14.1 FINAL Vinicio [facility] B&Whole Blood [facility] (AND), [address] [place] [address] 02/03 CBC w/ auto diff PLT 10*3/u L 182.0 369.0 173.0 Low FINAL Vinicio [facility] B&Whole Blood [facility] (AND), [address] [place] [address] 03/17 Lab Repor t See dermatopathologist d 02/02 LDH unit/L 120.0 246.0 207 FINAL Vinicio [facility] [place] [address] 02/02 CBC w/ auto diff WBC 10*3/u L 4.0 10.0 5.9 FINAL Vinicio [facility] B&Whole Blood [facility] ([facility]GT), [address], [address] [place] [address] 02/02 CBC w/ auto diff Jennifer # (ANC) 10*3/u L 1.56 6.13 3.82 FINAL Vinicio [facility] B&Whole Blood [facility] ([facility]), [address], [address] [place] [address] 02/02 CBC w/ auto diff LY # 10*3/u L 1.18 3.74 1.33 FINAL Vinicio [facility] B&Whole Blood [facility] ([facility]), [address], [address] [place], [place] [id number] 02/02 CBC w/ auto diff MO # 10*3/u L 0.24 0.86 0.45 FINAL Vinicio [facility] B&Whole Blood [facility] ([facility]), [address], [address] [place], [place] [id number] 02/02 CBC w/ auto diff EO # 10*3/u lL 0.04 0.36 0.28 FINAL Vinicio [facility] B&Whole Blood [facility] ([facility]), [address], [address] [place], [place] [id number] 02/02 CBC w/ auto diff BA # 10*3/u L 0.01 0.08 0.02 FINAL Vinicio [facility] B&Whole Blood [facility] ([facility]), [address], [address] [place] [address] 02/02 CBC w/ auto diff Jennifer % % 34.0 71.1 64.9 FINAL Vinicio Levy B&Whole Blood [facility] ([facility]), [address], [address] [place] [address] 02/02 CBC w/ auto diff LY % % 19.3 51.7 22.5 FINAL Vinicio Levy B&Whole Blood [facility] (T), [address], [address] [place] [address] 02/02 CBC w/ auto diff MO % % 4.7 12.5 7.6 FINAL Vinicio Cam B&Whole Blood [facility] (T), [address], [address] [place] [address] 02/02 CBC w/ auto diff EO % % 0.7 5.8 4.7 FINAL Vinicio Levy B&Whole Blood [facility] (T), [address], [address] [place] [address] 02/02 CBC w/ auto diff BA % % 0.1 1.2 0.3 FINAL Vinicio Cam B&Whole Blood [facility] (T), [address], [address] [place] [address] 02/02 CBC w/ auto diff RBC 10*6/u L 3.93 5.22 4.11 FINAL Vinicio Levy B&Whole Blood [facility] (T), [address], [address] [place] [address] 02/02 CBC w/ auto diff HGB g/dL 11.2 15.7 11.4 FINAL Vinicio Levy B&Whole Blood [facility] (T), [address], [address] [place] [address] 02/02 CBC w/ auto diff HCT % 34.1 44.9 36.6 FINAL Vinicio Levy B&Whole Blood [facility] (T), [address], [address] [place] [address] 02/02 CBC w/ auto diff MCV fL 79.4 94.8 89.1 FINAL Vinicio Levy B&Whole Blood [facility] (T), [address], [address] [place] [address] 02/02 CBC w/ auto diff MCH pg 25.6 32.2 27.7 FINAL Vinicio Levy B&Whole Blood [facility] ([facility]), [address], [address] [place] [address] 02/02 CBC w/ auto diff MCHC g/dL 32.2 35.5 31.1 Low FINAL Vinicio [facility] B&Whole Blood [facility] ([facility]), [address], [address] [place] [address] 02/02 CBC w/ auto diff RDW-C V, % % 11.7 14.4 14.9 High FINAL Vinicio [facility] B&Whole Blood [facility] ([facility]), [address], [address] [place] [address] 02/02 CBC w/ auto diff PLT 10*3/u L 182.0 369.0 241.0 FINAL Vinicio [facility] B&Whole Blood [facility] (T), [address], [address] [place] [address] 02/02 CMP-C [facility] Sodiu m mmol/L 136.0 145.0 140 FINAL Vinicio [facility], [place] [address] 02/02 CMP-C MC Potas sium mmol/L 3.5 5.1 4.5 FINAL Vinicio [facility], [place] [address] 02/02 CMP-C MC Chlor cristy mmol/L 98.0 107.0 103 FINAL Vinicio [facility], [place] [address] 02/02 CMP-C MC CO2 mmol/L 20.0 31.0 28 FINAL Vinicio [facility], [place] [address] 02/02 CMP-C CH Anion gap, mmol/ L mmol/L 4.0 15.0 9 FINAL Vinicio [facility], [place] [address] 02/02 CMP-C [facility] BUN mg/dL 9.0 23.0 20 FINAL Vinicio [facility], [place] [address] 02/02 CMP-C CH Creat inine mg/dL 0.5 0.8 0.87 High FINAL Vinicio [facility], [place] [address] 02/02 CMP-C MC BUN/C reati nine ratio 23 FINAL Vinicio [facility], [place] [address] 02/02 CMP-C MC Gluco se mg/dL 65.0 106.0 100 FINAL Vinicio [facility] [place] [address] 02/02 [facility] Calci um mg/dL 8.3 10.6 9.3 FINAL Vinicio [facility], [place] [address] 02/02 [facility] Album in gm/dL 3.4 5.0 4.1 FINAL Vinicio [facility], [place] [address] 02/02 [facility] Total prote in gm/dL 5.7 8.2 6.7 FINAL Vinicio [facility], [place] [address] 02/02 [facility] Alkal ine phosp hatas e unit/L 46.0 116.0 87 FINAL Vinicio [facility], [place] [address] 02/02 [facility] ALT/S GPT unit/L 21 FINAL Vinicio [facility], [place] [address] 02/02 [facility] AST/S GOT unit/L 22 FINAL Vinicio [facility], [place] [address] 02/02 [facility] Bilir ubin, total mg/dL 0.1 1.2 0.4 FINAL Vinicio [facility], [place] [address] 02/02 [facility] Globu sandhya gm/dL 2.6 FINAL Vinicio [facility], [place] [address] 02/02 [facility] A/G ratio 1.0 2.0 2 FINAL Vinicio [facility] [place] [address] 02/02 [facility] GFR non-A frica n Ameri can, estim ated mL/min /1.73m 2 >60 Estimated GFR Non calculate d using MDRD study equation. FINAL Vinicio [facility] [place] [address] 02/02 [facility] GFR Afric an Ameri can, estim ated mL/min /1.73m 2 >60 Estimated GFR calculate d using MDRD study equation FINAL Vinicio [facility] [place] [address] 04/14 Lab Repor t See dermatopathologist d 06/25 Lab Repor t See dermatopathologist d 02/01 CBC w/ auto diff WBC 10*3/u L 4.0 10.0 6.1 FINAL Vinicio [facility] B&Whole Blood [facility] ([facility]), [address], [address] [place] [address] 02/01 CBC w/ auto diff Jennifer # (ANC) 10*3/u L 1.56 6.13 4.00 FINAL Vinicio Levy B&Whole Blood [facility] ([facility]), [address], [address] [place] [address] 02/01 CBC w/ auto diff LY # 10*3/u L 1.18 3.74 1.35 FINAL Vinicio Levy B&Whole Blood [facility] (T), [address], [address] [place] [address] 02/01 CBC w/ auto diff MO # 10*3/u L 0.24 0.86 0.46 FINAL Vinicio Levy B&Whole Blood [facility] (T), [address], [address] [place] [address] 02/01 CBC w/ auto diff EO # 10*3/u lL 0.04 0.36 0.25 FINAL Vinicio Levy B&Whole Blood [facility] (T), [address], [address] [place] [address] 02/01 CBC w/ auto diff BA # 10*3/u L 0.01 0.08 0.02 FINAL Vinicio Levy B&Whole Blood [facility] (T), [address], [address] [place] [address] 02/01 CBC w/ auto diff Jennifer % % 34.0 71.1 65.8 FINAL Vinicio Levy B&Whole Blood [facility] (T), [address], [address] [place] [address] 02/01 CBC w/ auto diff LY % % 19.3 51.7 22.2 FINAL Vinicio Levy B&Whole Blood [facility] (T), [address], [address] [place] [address] 02/01 CBC w/ auto diff MO % % 4.7 12.5 7.6 FINAL Vinicio Levy B&Whole Blood [facility] (T), [address], [address] [place] [address] 02/01 CBC w/ auto diff EO % % 0.7 5.8 4.1 FINAL Vinicio Levy B&Whole Blood [facility] (T), [address], [address] [place] [address] 02/01 CBC w/ auto diff BA % % 0.1 1.2 0.3 FINAL Vinicio [facility] B&Whole Blood [facility] (T), [address], [address] [place] [address] 02/01 CBC w/ auto diff RBC 10*6/u L 3.93 5.22 3.84 Low FINAL Vinicio [facility] B&Whole Blood [facility] (T), [address], [address] [place] [address] 02/01 CBC w/ auto diff HGB g/dL 11.2 15.7 10.9 Low FINAL Vinicio [facility] B&Whole Blood [facility] (T), [address], [address] [place] [address] 02/01 CBC w/ auto diff HCT % 34.1 44.9 34.7 FINAL Vinicio [facility] B&Whole Blood [facility] (T), [address], [address] [place] [address] 02/01 CBC w/ auto diff MCV fL 79.4 94.8 90.4 FINAL Vinicio [facility] B&Whole Blood [facility] (T), [address], [address] [place] [address] 02/01 CBC w/ auto diff MCH pg 25.6 32.2 28.4 FINAL Vinicio [facility] B&Whole Blood [facility] (T), [address], [address] [place] [address] 02/01 CBC w/ auto diff MCHC g/dL 32.2 35.5 31.4 Low FINAL Vinicio [facility] B&Whole Blood [facility] (T), [address], [address] [place] [address] 02/01 CBC w/ auto diff RDW-C V, % % 11.7 14.4 14.2 FINAL Vinicio [facility] B&Whole Blood [facility] (T), [address], [address] [place] [address] 02/01 CBC w/ auto diff PLT 10*3/u L 182.0 369.0 243.0 FINAL Vinicio [facility] B&Whole Blood [facility] (T), [address], [address] [place] [address] 02/01 LDH U/L 120.0 246.0 204 FINAL Vinicio Levy S&Serum [facility] ([facility]), [address] [place] [address] 02/01 CMP - Core Lab Album in g/dL 3.4 5.0 3.9 FINAL Vinicio [facility]&Serum [facility] ([facility]), [address] [place] [address] 02/01 CMP - Core Lab Alkal ine phosp hatas e U/L 46.0 116.0 92 FINAL Vinicio [facility]&Serum [facility] ([facility]), [address] [place] [address] 02/01 CMP - Core Lab ALT/S GPT U/L 10.0 49.0 25 FINAL [facility] [address] [place] [address] 02/01 CMP - Core Lab AST/S GOT U/L 0.0 34.0 23 FINAL [facility] ([facility]), [address] [place] [address] 02/01 CMP - Core Lab Calci um mg/dL 8.7 10.4 9.4 FINAL [facility] [address] [place] [address] 02/01 CMP - Core Lab Chlor cristy mmol/L 98.0 107.0 104 FINAL [facility]), [address] [place] [address] 02/01 CMP - Core Lab CO2 mmol/L 20.0 31.0 28.3 FINAL [facility] ([facility]), [address] [place] [address] 02/01 CMP - Core Lab Creat inine mg/dL 0.5 0.8 0.72 FINAL [facility]), [address] [place] [address] 02/01 CMP - Core Lab GFR non-A frica n Ameri can, estim ated mL/min /1.73m >60.0 FINAL [facility]), [address] [place] [address] 02/01 CMP - Core Lab GFR Afric an Ameri can, estim ated mL/min /1.73m >60.0 FINAL Vinicio [facility]&Serum [facility] ([facility]), [address] [place] [address] 02/01 CMP - Core Lab Gluco se mg/dL 74.0 106.0 96 FINAL [facility]), [address] [place] [address] 02/01 CMP - Core Lab Potas sium mmol/L 3.5 5.1 4.6 FINAL [facility] ([facility]), [address] [place], [place] [id number] 02/01 CMP - Core Lab Sodiu m mmol/L 136.0 145.0 140 FINAL [facility] [address] [place] [address] 02/01 CMP - Core Lab Anion gap, mmol/ L mmol/L 4.0 15.0 7.7 FINAL [facility] ([facility]), [address] [place] [address] 02/01 CMP - Core Lab Bilir ubin, total mg/dL 0.3 1.2 0.4 FINAL [facility] ([facility]), [address] [place] [address] 02/01 CMP - Core Lab Total prote in g/dL 5.7 8.2 6.6 FINAL [facility] ([facility]), [address] [place], [place] [id number] 02/01 CMP - Core Lab A/G ratio 1.0 2.0 1.4 FINAL [facility] ([facility]), [address] [place] [address] 02/01 CMP - Core Lab BUN mg/dL 9.0 23.0 18 FINAL [facility]), [address] [place], [place] [id number] 02/01 CMP - Core Lab BUN/C reati nine ratio 0.0 25.0 25.0 FINAL [facility] ([facility]), [address] [place] [address] 02/26 CBC w/ auto diff WBC 10*3/u L 4.0 10.0 6.5 FINAL [facility]inicio [facility]), [address], [address] [facility] [address] 02/26 CBC w/ auto diff Jennifer # (ANC) 10*3/u L 1.56 6.13 4.17 FINAL [facility]inic[facility] ([facility]), [address], [address] [place] [address] 02/26 CBC w/ auto diff LY # 10*3/u L 1.18 3[address] [facility] ([facility]), [address], [address] [place] [address] 02/26 CBC w/ auto diff MO # 10*3/u L 0.24 [address] [facility] ([facility]), [address], [address] [place] [address] 02/26 CBC w/ auto diff EO # 10*3/u lL 0.04 0[address] [facility] ([facility]), [address], [address] [place] [address] 02/26 CBC w/ auto diff BA # 10*3/u L 0.01 0.08 [address] [facility] ([facility]), [address], [address] [place] [address] 02/26 CBC w/ auto diff Jennifer % % 34.0 71.1 63.9 FINAL Vinicio [facility] ([facility]), [address], [address] [place] [address] 02/26 CBC w/ auto diff LY % % 19.3 51[address] [facility] ([facility]), [address], [address] [place] [address] 02/26 CBC w/ auto diff MO % % 4.7 12.[address] [facility] ([facility]), [address], [address] [place] [address] 02/26 CBC w/ auto diff EO % % 0.7 5.[address] [facility] ([facility]), [address], [address] [place] [address] 02/26 CBC w/ auto diff BA % % 0.1 1.[address] [facility] ([facility]), [address], [address] [place] [address] 02/26 CBC w/ auto diff RBC 10*6/u L 3.93 5.[address] [facility] ([facility]), [address], [address] [place] [address] 02/26 CBC w/ auto diff HGB g/dL 11.2 15.7 10.[address] [facility] ([facility]), [address], [address] [place] [address] 02/26 CBC w/ auto diff HCT % 34.1 44[address] [facility] ([facility]), [address], [address] [place] [address] 02/26 CBC w/ auto diff MCV fL 79.[address] 94.[address] [facility] ([facility]), [address], [address] [place] [address] 02/26 CBC w/ auto diff MCH pg 25.6 32.[address] [facility] ([facility]), [address], [address] [place] [address] 02/26 CBC w/ auto diff MCHC g/dL 32.2 35.5 31.[address] [facility] (T), [address], [address] [place] [address] 02/26 CBC w/ auto diff RDW-C V, % % 11.7 14.[address] [facility] ([facility]), [address], [address] [place] [address] 02/26 CBC w/ auto diff PLT 10*3/u L 182.[address] [facility] ([facility]), [address], [address] [place] [address] 02/26 LDH U/L 120.0 246.0 189 FINAL Vinicio [facility] ([facility]), [address] [place] [address] 02/26 CMP - Core Lab Sodiu m mmol/L 136.0 145.0 141 FINAL Vinicio [facility] ([facility]), [address] [place] [address] 02/26 CMP - Core Lab Potas sium mmol/L 3.5 5.1 4.7 FINAL Vinicio [facility] ([facility]), [address] [place] [address] 02/26 CMP - Core Lab Chlor cristy mmol/L 98.0 107.0 108 High FINAL Vinicio [facility] ([facility]), [address] [place] [address] 02/26 CMP - Core Lab CO2 mmol/L 20.0 31.0 25.2 FINAL Vinicio [facility] ([facility]), [address] [place] [address] 02/26 CMP - Core Lab Anion gap, mmol/ L mmol/L 4.0 15.0 7.8 FINAL Vinicio [facility] ([facility]), [address] [place] [address] 02/26 CMP - Core Lab BUN mg/dL 9.0 23.0 16 FINAL Vinicio [facility] ([facility]), [address] [place] [address] 02/26 CMP - Core Lab BUN/C reati nine ratio 0.0 25.0 18.8 FINAL Vinicio [facility] ([facility]), [address] [place] [address] 02/26 CMP - Core Lab Creat inine mg/dL 0.5 0.8 0.85 High FINAL Vinicio [facility] ([facility]), [address] [place] [address] 02/26 CMP - Core Lab GFR non-A frica n Ameri can, estim ated mL/min /1.73m >60.0 FINAL Vinicio [facility] ([facility]), [address] [place] [address] 02/26 CMP - Core Lab GFR Afric an Ameri can, estim ated mL/min /1.73m >60.0 FINAL Vinicio [facility] ([facility]), [address] [place] [address] [place] [address] 02/26 CMP - Core Lab Gluco se mg/dL 74.0 106.0 96 FINAL Vinicio [facility] ([facility]), [address] [place] [address] [place] [address] 02/26 CMP - Core Lab Calci um mg/dL 8.7 10.6 9.2 FINAL Vinicio [facility] ([facility]), [address] [place] [address] [place] [address] 02/26 CMP - Core Lab Album in g/dL 3.4 5.0 3.7 FINAL Vinicio [facility] ([facility]), [address] [place] [address] [place] [address] 02/26 CMP - Core Lab Total prote in g/dL 5.7 8.2 6.8 FINAL Vinicio [facility] ([facility]), [address] [place] [address] [place] [address] 02/26 CMP - Core Lab A/G ratio 1.0 2.0 1.2 FINAL Vinicio [facility] ([facility]), [address] [place] [address] [place] [address] 02/26 CMP - Core Lab Alkal ine phosp hatas e U/L 46.0 116.0 94 FINAL Vinicio [facility] ([facility]), [address] [place] [address] [place] [address] 02/26 CMP - Core Lab ALT/S GPT U/L 10.0 49.0 28 FINAL Vinicio [facility] ([facility]), [address] [place] [address] [place] [address] 02/26 CMP - Core Lab AST/S GOT U/L 0.0 34.0 22 FINAL Vinicio [facility] ([facility]), [address] [place] [address] [place] [address] 02/26 CMP - Core Lab Bilir ubin, total mg/dL 0.3 1.2 0.3 FINAL Vinicio [facility] ([facility]), [address] [place] [address] Medications Date Name Route Dose Frequency Instructions [...] 2 times per day 017 active 017 Lisinopril-[place] chlorothiazide Oral 20 mg-12.5 mg Oral 2.0 1 2 tabs daily 017 active Problems Diagnosis Status Date of Diagnosi s Diabetes mellitus type 2 (disorder) Active Hypertensive disorder, systemic arterial (disord er) Active Primary hypercholesterolemia (disorder) Active History of malignant lymphoma (situation) Active Diffuse non-Hodgkin's lymphoma, 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 Vital Signs Date Type Value 02/12/2017 Body Temperature 99.00 02/12/2017 Heart Beat 72.00 02/12/2017 BSA 1.93 02/12/2017 BMI 27.10 02/12/2017 Height 67.00 02/12/2017 Weight 173.00 02/12/2017 Pain Scale 0.00 02/12/2017 Intravascular Systolic 120 02/12/2017 Intravascular Diastolic 80 02/12/2017 Respiratory Rate 16.00 04/09/2017 Body Temperature 99.00 04/09/2017 BMI 27.57 04/09/2017 Height 67.00 04/09/2017 Weight 176.00 04/09/2017 BSA 1.94 04/09/2017 Intravascular Systolic 130 04/09/2017 Intravascular Diastolic 80 04/09/2017 Respiratory Rate 16.00 04/09/2017 Heart Beat 72.00 04/09/2017 Pain Scale 0.00 06/03/2017 Height 67.00 06/03/2017 Weight 171.20 06/03/2017 Pain Scale 0.00 06/03/2017 Intravascular Systolic 152 06/03/2017 Intravascular Diastolic 86 06/03/2017 BMI 26.81 06/03/2017 Heart Beat 72.00 06/03/2017 Body Temperature 98.70 06/03/2017 BSA 1.92 06/03/2017 Respiratory Rate 16.00 08/12/2017 BMI 26.53 08/12/2017 Height 67.00 08/12/2017 Weight 169.40 08/12/2017 Pain Scale 0.00 08/12/2017 BSA 1.91 08/12/2017 Intravascular Systolic 118 08/12/2017 Intravascular Diastolic 80 08/12/2017 Heart Beat 78.00 08/12/2017 Respiratory Rate 14.00 08/12/2017 Body Temperature 98.50 10/07/2017 BMI 26.47 10/07/2017 Height 67.00 10/07/2017 Weight 169.00 10/07/2017 Pain Scale 0.00 10/07/2017 BSA 1.90 10/07/2017 Intravascular Systolic 122 10/07/2017 Intravascular Diastolic 70 10/07/2017 Respiratory Rate 15.00 10/07/2017 Body Temperature 98.50 10/07/2017 Heart Beat 76.00 12/02/2017 BSA 1.89 12/02/2017 BMI 26.22 12/02/2017 Height 67.00 12/02/2017 Weight 167.40 12/02/2017 Intravascular Systolic 130 12/02/2017 Intravascular Diastolic 66 12/02/2017 Respiratory Rate 15.00 12/02/2017 Heart Beat 68.00 12/02/2017 Body Temperature 98.60 12/02/2017 Pain Scale 0.00 01/20/2018 Body Temperature 98.50 01/20/2018 Heart Beat 82.00 01/20/2018 Respiratory Rate 15.00 01/20/2018 Intravascular Systolic 144 01/20/2018 Intravascular Diastolic 88 01/20/2018 BSA 1.93 01/20/2018 Weight 173.00 01/20/2018 Height 67.00 01/20/2018 BMI 27.10 01/20/2018 Pain Scale 0.00 02/03/2018 BSA 1.92 02/03/2018 BMI 26.97 02/03/2018 Height 67.00 02/03/2018 Weight 172.20 02/03/2018 Intravascular Systolic 110 02/03/2018 Intravascular Diastolic 68 02/03/2018 Respiratory Rate 12.00 02/03/2018 Heart Beat 66.00 02/03/2018 Body Temperature 98.30 02/03/2018 Pain Scale 0.00 03/17/2018 BMI 28.30 03/17/2018 Height 67.00 03/17/2018 Weight 180.70 03/17/2018 Pain Scale 0.00 03/17/2018 BSA 1.97 03/17/2018 Respiratory Rate 15.00 03/17/2018 Heart Beat 76.00 03/17/2018 Body Temperature 99.30 03/17/2018 Intravascular Systolic 138 03/17/2018 Intravascular Diastolic 76 06/23/2018 BMI 27.72 06/23/2018 Height 67.00 06/23/2018 Weight 177.00 06/23/2018 Pain Scale 0.00 06/23/2018 Intravascular Systolic 146 06/23/2018 Intravascular Diastolic 82 06/23/2018 Respiratory Rate 16.00 06/23/2018 Body Temperature 98.00 06/23/2018 BSA 1.95 08/11/2018 Body Temperature 98.00 08/11/2018 Heart Beat 70.00 08/11/2018 Respiratory Rate 14.00 08/11/2018 Intravascular Systolic 130 08/11/2018 Intravascular Diastolic 72 08/11/2018 Pain Scale 0.00 08/11/2018 Weight 177.10 08/11/2018 Height 67.00 08/11/2018 BSA 1.95 08/11/2018 BMI 27.74 10/13/2018 Body Temperature 97.90 10/13/2018 BSA 1.96 10/13/2018 BMI 28.14 10/13/2018 Height 67.00 10/13/2018 Weight 179.70 10/13/2018 Pain Scale 0.00 10/13/2018 Intravascular Systolic 127 10/13/2018 Intravascular Diastolic 60 10/13/2018 Respiratory Rate 15.00 10/13/2018 Heart Beat 68.00 11/24/2018 Body Temperature 98.30 11/24/2018 Heart Beat 65.00 11/24/2018 Oxygen Saturation 94.00 11/24/2018 Intravascular Systolic 114 11/24/2018 Intravascular Diastolic 65 11/24/2018 BSA 1.96 11/24/2018 Weight 179.10 11/24/2018 Height 67.00 11/24/2018 BMI 28.05 11/24/2018 Pain Scale 0.00 01/19/2019 Body Temperature 98.40 01/19/2019 Heart Beat 70.00 01/19/2019 Respiratory Rate 15.00 01/19/2019 Intravascular Systolic 121 01/19/2019 Intravascular Diastolic 63 01/19/2019 Pain Scale 0.00 01/19/2019 Weight 179.50 01/19/2019 Height 67.00 01/19/2019 BMI 28.11 01/19/2019 BSA 1.96 02/02/2019 Body Temperature 98.80 02/02/2019 Heart Beat 68.00 02/02/2019 Respiratory Rate 14.00 02/02/2019 Intravascular Systolic 122 02/02/2019 Intravascular Diastolic 74 02/02/2019 BSA 1.94 02/02/2019 Weight 175.40 02/02/2019 Height 67.00 02/02/2019 BMI 27.47 02/02/2019 Pain Scale 0.00 02/02/2020 BSA 1.95 [...] Print Location: Unknown Date/Time Printed: 11/03/2024 10:43 ([facility]) Patient: WENDY BLACKMAN Sex: Female : [...] IRRIGAJ IMPLNTD VENOUS ACCESS DRUG DELIVERY SYST ([id number]) Entered By Sophy Cho RN; Incident to Michael Shaikh MD ;Missing information: Billing problem(s) * Nurse Note for: 24-NOV-18 [facility] Nurse Note Print Location: Unknown Date/Time Printed: 11/03/2024 10:43 ([facility]) Patient: WENDY BLACKMAN Sex: Female : [...] IRRIGAJ IMPLNTD VENOUS ACCESS DRUG DELIVERY SYST ([id number]) Entered By Sophy Cho RN; Incident to Michael Shaikh MD ;Missing information: Billing problem(s) * Nurse Note for: 13-OCT-18 [facility] Nurse Note Print Location: Unknown Date/Time Printed: 11/03/2024 10:43 ([facility]) Patient: WENDY BLACKMAN Sex: Female : [...] IRRIGAJ IMPLNTD VENOUS ACCESS DRUG DELIVERY SYST ([id number]) Entered By Sophy Cho RN; Incident to Michael Shaikh MD ;Missing information: Billing problem(s) * Nurse Note for: 11-AUG-18 [facility] Nurse Note Print Location: Unknown Date/Time Printed: 11/03/2024 10:43 ([facility]) Patient: WENDY BLACKMAN Sex: Female : [...] . Entered By Sophy Cho RN on 11: IV Access/Lab Draw : IV Access-CVC - [...] Bruising, Entered By Sophy Cho RN on :21 Procedures : Port flush; Selected Billing Code(s): IRRIGAJ IMPLNTD VENOUS ACCESS DRUG DELIVERY SYST ([id number]) Entered By Sophy Cho RN; Incident to Michael Shaikh MD ;Missing information: Billing problem(s) * Nurse Note for: 23-JUN-18 [facility] Nurse Note Print Location: Unknown Date/Time Printed: 11/03/2024 10:43 ([facility]) Patient: WENDY BLACKMAN Sex: Female : [...] IRRIGAJ IMPLNTD VENOUS ACCESS DRUG DELIVERY SYST (98406) Entered By Sophy Cho RN; Incident to Michael Shaikh MD ;Missing information: Billing problem(s) * Nurse Note for: 17-MAR-18 [facility] Nurse Note Print Location: Unknown Date/Time Printed: 11/03/2024 10:43 ([facility]) Patient: WENDY BLACKMAN Sex: Female : [...] IRRIGAJ IMPLNTD VENOUS ACCESS DRUG DELIVERY SYST ([id number]) Entered By Sophy Cho RN; Incident to Michael Shaikh MD ;Missing information: Billing problem(s) * Nurse Note for: 20-JAN-18 [facility] Nurse Note Print Location: Unknown Date/Time Printed: 11/03/2024 10:43 ([facility]) Patient: WENDY BLACKMAN Sex: Female : [...] Bruising, Entered By Sophy Cho RN on 11:53 Procedures : Port flush - Associated Problem(s): History of malignant lymphoma (situation) *; Selected Billing Code(s): IRRIGAJ IMPLNTD VENOUS ACCESS DRUG DELIVERY SYST ([id number]) Entered By Sophy Cho RN; Incident to Michael Shaikh MD * Nurse Note for: 02-DEC-17 [facility] Nurse Note Print Location: Unknown Date/Time Printed: 11/03/2024 10:43 ([facility]) Patient: WENDY BLACKMAN Sex: Female : [...] IRRIGAJ IMPLNTD VENOUS ACCESS DRUG DELIVERY SYST ([id number]) Entered By Sophy Cho RN; Incident to Michael Shaikh MD * Nurse Note for: 07-OCT-17 [facility] Nurse Note Print Location: Unknown Date/Time Printed: 11/03/2024 10:43 ([facility]) Patient: WENDY BLACKMAN Sex: Female : [...] IRRIGAJ IMPLNTD VENOUS ACCESS DRUG DELIVERY SYST ([id number]) Entered By Sophy Cho RN; Incident to Michael Shaikh MD * Nurse Note for: 12-AUG-17 [facility] Nurse Note Print Location: Unknown Date/Time Printed: 11/03/2024 10:43 ([facility]) Patient: WENDY BLACKMAN Sex: Female : [...] COLLECT BLOOD FROM IMPLANT VENOUS ACCESS DEVICE ([id number]) Entered By Emily Sanchez RN; Incident to Vinicio Levy MD * Nurse Note for: 03-JUN-17 [facility] Nurse Note Print Location: Unknown Date/Time Printed: 11/03/2024 10:43 ([facility]) Patient: WENDY BLACKMAN Sex: Female : 1940 Date of Service: 06/03/2017 Allergies : gabapentin Vital Signs : Time: 10:43. Weight: 171.2 lb (77.66 kg). Height: 67 in (170.18 cm). BMI: 26.81 (kg/m2) . BSA: 1.92(m2) . Temperature: 98.7 F (37.06 C). Pulse: 72 (/min) . Respirations: 16 (/min) . Blood pressure: 152/86 (mm Hg). Pain Scale: 0. Entered by Toya Medina MA 06/03/2017 10:45 Patient Assessment : Positive results Assessment : Labs Verified: Yes. Negative results Assessment : Denies Neuropathy , Pain -0-No pain, Fatigue , Anxiety/Depression , Fever, Chills or Night Sweats ,Signs of Infection , Skin Changes , Dizziness , Headaches , Breathing Changes , Cough , Mouth Sores/Stomatitis/Mucositis , Changes in Appetite , Vomiting , Diarrhea , Constipation , Urinary Changes , Bleeding . Entered By Viktoriya Benavides RN on 16:24 IV Access/Lab Draw : IV Access-VAD - Jennifer-cath, Needle Type-Vega, Needle Size-20 Gauge, Needle Length-3/4 inch, AccessSite-Left Chest, Flush-10ml NS, Site Assess List-Blood Return,No Redness,No Swelling,No Tenderness,No Bruising, Site Care Checklist- Aseptic Technique, Lab Drawn-No, Entered By Viktoriya Benavides RN on 16:25 IV De-Access : Line Flushed-10ml NS,500u Heparin, Catheter-Dc'd, Site Care-Bandage Applied,Therapy Completed Without Adverse Event,Port Deaccessed, Site Assess- Line Intact,No Redness,No Swelling,No Tenderness,No Bruising, Entered By Viktoriya Benavides RN on 16:25 Free Text Note : 5 rights verifiedPt here for port flush. Port was accessed and flushed with NS , + blood return. Port then flushed with heparin and vega needle removed. Bandaid to site. Site clear. Pt ambulated outof tx center without difficulty. Entered By Viktoriya Benavides RN on 16:26 Procedures : Port flush - Associated Problem(s): History of malignant lymphoma (situation) *; Selected Billing Code(s): IRRIGAJ IMPLNTD VENOUS ACCESS DRUG DELIVERY SYST ([id number]) Entered By Viktoriya Benavides RN; Incident to Michael Shaikh MD * Nurse Note for: 09-APR-17 [facility] Nurse Note Print Location: Unknown Date/Time Printed: 11/03/2024 10:43 ([facility]) Patient: WENDY BLACKMAN Sex: Female : 1940 Date of Service: 04/09/2017 Allergies : gabapentin Vital Signs : Time: 13:23. Weight: 176 lb (79.83 kg). Height: 67 in (170.18 cm). BMI: 27.57 (kg/m2) . BSA: 1.94 (m2) . Temperature: 99 F (37.22 C) oral. Pulse: 72 (/min) . Respirations: 16 (/min) . Blood pressure:130/80 (mm Hg) left arm Regular. Pain Scale: 0. Entered by Adolfo Yoder MA 04/09/2017 13:25 Patient Assessment : Negative results Assessment : Labs Verified: No. Denies Neuropathy , Pain -0-No pain, Fatigue , Anxiety/Depression , Fever, Chills or Night Sweats ,Signs of Infection , Skin Changes , Dizziness , Headaches , Nausea , Breathing Changes , Cough , Mouth Sores/Stomatitis/Mucositis , Changes in Appetite , Vomiting , Diarrhea , Constipation , Urinary Changes , Bleeding . Entered By Sherrill Jarrell RN on 16:13 IV Access/Lab Draw : IV Access-VAD - Single, Needle Type-Vega, Needle Size-20 Gauge, Needle Length- 3/4 inch, Access Site-Left Chest, Flush-10ml NS, Site Assess List-Blood Return,No Redness,No Swelling,No Tenderness, Dressing Change-Chlorhexadine, Lab Drawn-No, Entered By Sherrill Jarrell RN on 16:12 IV De-Access : Line Flushed-20ml NS,500u Heparin, Catheter-Dc'd, Site Care-Port Deaccessed, Site Assess-No Redness,No Swelling,No Tenderness,No Bruising, Entered By Sherrill Jarrell RN on 16:13 Procedures : Port flush - Associated Problem(s): History of malignant lymphoma (situation) *; Selected Billing Code(s): IRRIGAJ IMPLNTD VENOUS ACCESS DRUG DELIVERY SYST ([id number]) Entered By Sherrill Jarrell RN; Incident to Doug Hinds MD * Nurse Note for: 12-FEB-17 [facility] Nurse Note Print Location: Unknown Date/Time Printed: 11/03/2024 10:43 ([facility]) Patient: WENDY BLACKMAN Sex: Female : 1940 Date of Service: 02/12/2017 Allergies : gabapentin Vital Signs : Time: 12:17 PM. Weight: 173 lb (78.47 kg). Height: 67 in (170.18 cm). BMI: 27.1 (kg/m2) . BSA: 1.93(m2) . Temperature: 99 F (37.22 C) oral. Pulse: 72 (/min) . Respirations: 16 (/min) . Blood pressure: 120/80 (mm Hg) right arm Regular. Pain Scale: 0. Entered by Kavitha Rojas MA 02/12/2017 12:19 Patient Assessment : Positive results Assessment : Labs Verified: Yes. Negative results Assessment : Denies Neuropathy , Pain -0-No pain, Fatigue , Anxiety/Depression , Fever, Chills or Night Sweats ,Signs of Infection , Skin Changes , Dizziness , Headaches , Nausea , Breathing Changes , Cough , Mouth Sores/Stomatitis/Mucositis , Changes in Appetite , Vomiting , Diarrhea , Constipation , Urinary Changes , Bleeding . Entered By Lesley Denny RN on 13:08 IV Access/Lab Draw : IV Access-VAD - Jennifer-cath, Needle Type-Vega, Needle Size-20 Gauge, Needle Length-3/4 inch, AccessSite-Left Chest, Flush-10ml NS,500u Heparin, Site Assess List-Blood Return,No Redness,No Swelling,No Tenderness,No Bruising, Site Care Checklist-Aseptic Technique, Lab Drawn-Yes, Entered By Lesley Denny RN on 13:09 IV De-Access : IV Access Method-VAD - Jennifer-cath, IV Access Type-Vega, Line Flushed-10ml NS,500u Heparin, Catheter-Dc'd, Site Care-Bandage Applied, Site Assess-Line Intact,No Redness,No Swelling,No Tenderness,No Bruising, Entered By Lesley Denny RN on 13:09 Procedures : Blood draw via port - Associated Problem(s): History of malignant lymphoma (situation) *; Selected Billing Code(s): COLLECT BLOOD FROM IMPLANT VENOUS ACCESS DEVICE (40167) Entered By Lesley Denny RN; Incident to Doug Hinds MD
--- OUTSIDE RECORDS SUMMARY | 2024-11-03 10:43 | XMS_ITS ---
Author Name Interface, [id number] Address [address] [place] [address] Organization [facility] Address [address] [place] [address] Care Team Providers Care Embossing Clerk Name Role Phone Vinicio Levy Unavailable Unavailable Allergies and Adverse Reactions Medication/Group Name Reaction Severity Date gabapentin 01/19/2019 Plan Date Type Value 03/04/2022 APPOINTMENT OV 15 MIN 03/04/2022 APPOINTMENT LAB 15 MIN 02/26/2021 APPOINTMENT Lab 02/26/2021 APPOINTMENT OV 15 MIN 02/26/2021 APPOINTMENT LAB 15 MIN 02/26/2021 LABORDER CBC w/ auto diff 02/26/2021 LABORDER CMP - Core Lab 02/26/2021 LABORDER LDH 03/04/2022 LABORDER CMP - Core Lab 03/04/2022 LABORDER CBC w/ auto diff 03/04/2022 LABORDER LDH Reason for Visit LAB 15 MIN Encounters Date Name 02/26/2021 Diffuse non-Hodgkin' s lymphoma, large cell (disorder) Diagnostic Results Date Type Test Units Lower Limit Upper Limit Result Flag Comments Status Ordered By Specimen Source Lab Address 02/26 LDH U/L 120.0 246.0 189 FINAL Vinicio [facility] [place] ([facility]), [address] [facility] [address] 02/26 CBC w/ auto diff WBC 10*3/u L 4.0 10.0 6.5 FINAL Vinicio [facility] [place] ([facility]), [address], [address] [facility] [address] 02/26 CBC w/ auto diff Jennifer # (ANC) 10*3/u L 1.56 6.13 4.17 FINAL Vinicio [facility] [place] ([facility]), [address], [address] [facility] [address] 02/26 CBC w/ auto diff LY # 10*3/u L 1.18 3.74 1.55 FINAL [facility]inic[facility] ([facility] [address] [place], [address] [place] [address] 02/26 CBC w/ auto diff MO # 10*3/u L 0.24 0.86 0.48 FINAL Vinicio [facility] ([facility]), [address], [address] [place] [address] 02/26 CBC w/ auto diff EO # 10*3/u lL 0.04 0.36 0.29 FINAL Vinicio [facility] [place] ([facility]), [address], [address] [place] [address] 02/26 CBC w/ auto diff BA # 10*3/u L 0.01 0.08 0.04 FINAL Vinicio [facility] ([facility]), [address], [address] [place] [address] 02/26 CBC w/ auto diff Jennifer % % 34.0 71.1 63.9 FINAL Vinicio [facility] [place] ([facility]), [address], [address] [place] [address] 02/26 CBC w/ auto diff LY % % 19.3 51.7 23.7 FINAL Vinicio [facility] ([facility]), [address], [address] [place] [address] 02/26 CBC w/ auto diff MO % % 4.7 12.5 7.4 FINAL Vinicio [facility] [place] ([facility]), [address], [address] [place] [address] 02/26 CBC w/ auto diff EO % % 0.7 5.8 4.4 FINAL Vinicio [facility] [place] ([facility]), [address], [address] [place] [address] 02/26 CBC w/ auto diff BA % % 0.1 1.2 0.6 FINAL Vinicio [facility] [place] ([facility]), [address], [address] [place] [address] 02/26 CBC w/ auto diff RBC 10*6/u L 3.93 5.22 3.95 FINAL Vinicio [facility] ([facility]), [address], [address] [place] [address] 02/26 CBC w/ auto diff HGB g/dL 11.2 15.7 10.9 Low FINAL Vinicio [facility] ([facility]), [address], [address] [place] [address] 02/26 CBC w/ auto diff HCT % 34.1 44.9 34.9 FINAL Vinicio [facility] ([facility]), [address], [address] [place] [address] 02/26 CBC w/ auto diff MCV fL 79.4 94.8 88.4 FINAL Vinicio [facility] ([facility]), [address], [address] [place] [address] 02/26 CBC w/ auto diff MCH pg 25.6 32.2 27.6 FINAL Vinicio [facility] ([facility]), [address], [address] [place] [address] 02/26 CBC w/ auto diff MCHC g/dL 32.2 35.5 31.2 Low FINAL Vinicio [facility] ([facility]), [address], [address] [place] [address] 02/26 CBC w/ auto diff RDW-C V, % % 11.7 14.4 14.1 FINAL Vinicio [facility] ([facility]), [address], [address] [place] [address] 02/26 CBC w/ auto diff PLT 10*3/u L 182.0 369.0 258.0 FINAL Vinicio [facility] ([facility]), [address], [address] [place] [address] 02/26 CMP - Core Lab Sodiu m mmol/L 136.0 145.0 141 FINAL Vinicio [facility] [place] ([facility]), [address] [id number] 02/26 CMP - Core Lab Potas sium mmol/L 3.5 5.1 4.7 FINAL Vinicio [facility] ([facility]), [address] [place] [address] 02/26 CMP - Core Lab Chlor cristy mmol/L 98.0 107.0 108 High FINAL Vinicio [facility] ([facility]), [address] [place] [address] 02/26 CMP - Core Lab CO2 mmol/L 20.0 31.0 25.2 FINAL Vinicio [facility] ([facility]), [address] [place] [address] 02/26 CMP - Core Lab Anion gap, mmol/ L mmol/L 4.0 15.0 7.8 FINAL Vinicio [facility] ([facility]), [address] [place] [address] 02/26 CMP - Core Lab BUN mg/dL 9.0 23.0 16 FINAL Vinicio [facility] ([facility]), [address] [place] [address] 02/26 CMP - Core Lab BUN/C reati nine ratio 0.0 25.0 18.8 FINAL Vinicio [facility] ([facility]), [address] [place] [address] 02/26 CMP - Core Lab Creat inine mg/dL 0.5 0.8 0.85 High FINAL Vinicio [facility] ([facility]), [address] [place] [address] 02/26 CMP - Core Lab GFR non-A frica n Ameri can, estim ated mL/min /1.73m >60.0 FINAL Vinicio [facility] ([facility]), [address] [place] [address] 02/26 CMP - Core Lab GFR Afric an Ameri can, estim ated mL/min /1.73m >60.0 FINAL Vinicio [facility] ([facility]), [address] [place] [address] 02/26 CMP - Core Lab Gluco se mg/dL 74.0 106.0 96 FINAL Vinicio [facility] ([facility]), [address] [place] [address] 02/26 CMP - Core Lab Calci um mg/dL 8.7 10.6 9.2 FINAL Vinicio [facility] ([facility]), [address] [place] [address] 02/26 CMP - Core Lab Album in g/dL 3.4 5.0 3.7 FINAL Vinicio [facility] ([facility]), [address] [place] [address] 02/26 CMP - Core Lab Total prote in g/dL 5.7 8.2 6.8 FINAL Vinicio [facility] ([facility]), [address] [place] [address] 02/26 CMP - Core Lab A/G ratio 1.0 2.0 1.2 FINAL Vinicio [facility] ([facility]), [address] [place] [address] 02/26 CMP - Core Lab Alkal ine phosp hatas e U/L 46.0 116.0 94 FINAL Vinicio [facility] ([facility]), [address] [place] [address] 02/26 CMP - Core Lab ALT/S GPT U/L 10.0 49.0 28 FINAL Vinicio [facility] ([facility]), [address] [place] [address] 02/26 CMP - Core Lab AST/S GOT U/L 0.0 34.0 22 FINAL Vinicio [facility]), [address] [place] [address] 02/26 CMP - Core Lab Bilir ubin, total mg/dL 0.3 1.2 0.3 FINAL Vinicio [facility] ([facility]), [address] [place] [address] Medications Date Name Route Dose Frequency Instructions [...] orally 1.0 tablet every day 017 active Amlodipine Oral orally 1.0 tablet every day 017 active Potassium Chloride Oral ER Tab orally 1.0 tablet extended release 2 times per day 017 active Lisinopril-Preston chlorothiazide Oral 20 mg-12.5 mg Oral 2.0 1 2 tabs daily 017 active Problems Diagnosis Status Date of Diagnosi s Diabetes mellitus type 2 (disorder) Active Hypertensive disorder, systemic arterial (disord er) Active Primary hypercholesterolemia (disorder) Active History of malignant lymphoma (situation) Active Diffuse non-Hodgkin's lymphoma, 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 Vital Signs Date Type Value 02/26/2021 Body Temperature 98.50 02/26/2021 Heart Beat 78.00 02/26/2021 Respiratory Rate 14.00 02/26/2021 Intravascular Systolic 140 02/26/2021 Intravascular Diastolic 80 02/26/2021 BSA 1.93 02/26/2021 Weight 174.60 02/26/2021 Height 67.00 02/26/2021 BMI 27.35 02/26/2021 Pain Scale 0.00
--- OUTSIDE RECORDS SUMMARY | 2024-11-03 10:44 | XMS_ITS ---
Author Name Interface, [id number] lity Address [address] [place] [address] Organization [facility] Address [address] [place] [address] Care Team Providers Care Cancer Registry Coordinator Name Role Phone Doug Hinds Unavailable Allergies and Adverse Reactions Medication/Group Name [...] APPOINTMENT RTC 02/02/2020 APPOINTMENT Lab 02/02/2019 APPOINTMENT FU 1 Year 02/02/2019 APPOINTMENT [...] APPOINTMENT port flush 08/13/2017 APPOINTMENT 1 YR MD Nagy/Babita 08/13/2017 APPOINTMENT 1 YR MD Nagy/Babita 08/12/2017 APPOINTMENT PORT FLUSH 06/03/2017 APPOINTMENT PORT FLUSH 04/09/2017 APPOINTMENT PORT FLUSH 08/12/2017 LABORDER CMP 08/12/2017 [...] Visit LAB 15 MIN Encounters Date Name 04/09/2017 Diffuse non-Hodgkin' s lymphoma, large cell (disorder) Immunizations Date Name Route Dose Instructions Refusal Reason Stat us Flu vaccine - Adult Diagnostic Results Date Type Test Units Lower Limit Upper Limit Result Flag Comments Status Ordered By Specimen Source Lab Address 08/12 Lipid panel HDL mallika stero l mg/dL 75 Age Range Low Borderlin e Low Acceptabl eChild/Ad ol. <40 mg/dL 40-45 mg/dL >45 mg/dLAdul t <40 mg/dL 40-59 mg/dL >59 mg/dL FINAL [facility] [place] [address] 08/12 Lipid panel Mallika stero l mg/dL 118 Age Range Desirable Borderlin e High High RiskChild /Adol. <170 mg/dL 170-199 mg/dL >=200 mg/dLAdul t <200 mg/dL 200-239 mg/dL >=240 mg/dL FINAL [facility] [place] [address] 08/12 Lipid panel Trigl yceri cira mg/dL 113 Age Range Acceptabl e Borderlin e High High Very HighChild (2-9Yrs) <75 mg/dL 75-99 mg/dL >=100 mg/dLAdol avhtlh21- 18 Yrs <90 mg/dL 90-129 mg/dL >=130 mg/dLAdul t>18 Yrs <150 mg/dL 150-199 mg/dL 200-499 mg/dL >=500mg/d L FINAL [facility] [place] [address] 08/12 Lipid panel LDL mallika stero l, calcu lated mg/dL 20 Age Range Acceptabl e Borderlin e High HighChild /Adol. <110 mg/dL 110-129 mg/dL >=130 mg/dLAdul t <100 mg/dL 100-159 mg/dL >=160mg/d L FINAL [facility] [place] [address] 08/12 CBC w/ auto diff WBC 10*3/u L 4.0 10.0 6.6 FINAL [facility]&Whole Blood [facility] (AND), [address] [place], [place] [id number] 08/12 CBC w/ auto diff Jennifer # (ANC) 10*3/u L 1.56 6.13 4.39 FINAL [facility]&Whole Blood [facility] (AND), [address] [place] [address] 08/12 CBC w/ auto diff LY # 10*3/u L 1.18 3.74 1.51 FINAL [facility]&Whole Blood [facility] (AND), [address] [facility] 08/12 CBC w/ auto diff MO # 10*3/u L 0.24 0.86 0.49 FINAL [facility]inicio Levy B&Whole Blood [facility] (AND), [address] #[facility] [place] [address] 08/12 CBC w/ auto diff EO # 10*3/u lL 0.04 0.36 0.21 FINAL Vinicio Cam B&Whole Blood [facility] (AND), [address] [place] [address] 08/12 CBC w/ auto diff BA # 10*3/u L 0.01 0.08 0.03 FINAL [facility]inicio Cam B&Whole Blood [facility] (AND), [address] #[facility] [place] [address] 08/12 CBC w/ auto diff Jennifer % % 34.0 71.1 66.1 FINAL Vinicio Levy B&Whole Blood [facility] (AND), [address] #[facility] [place] [address] 08/12 CBC w/ auto diff LY % % 19.3 51.7 22.8 FINAL Vinicio Cam Blake&Whole Blood [facility] (AND), [address] [place], [place] [id number] 08/12 CBC w/ auto diff MO % % 4.7 12.5 7.4 FINAL Vinicio Levy B&Whole Blood [facility] (AND), [address] #[facility] [place] [address] 08/12 CBC w/ auto diff EO % % 0.7 5.8 3.2 FINAL Vinicio Levy Lou&Whole Blood [facility] (AND), [address] #[facility] [place] [address] 08/12 CBC w/ auto diff BA % % 0.1 1.2 0.5 FINAL Vinicio Cam Blake&Whole Blood [facility] (AND), [address] #[facility] [place] [address] 08/12 CBC w/ auto diff RBC 10*6/u L 3.93 5.22 3.68 Low FINAL [facility]inicio Levy B&Whole Blood [facility] (AND), [address] #[facility] [place] [address] 08/12 CBC w/ auto diff HGB g/dL 11.2 15.7 10.4 Low FINAL Vinicio [facility] B&Whole Blood [facility] (AND), [address] #[facility] [place] [address] 08/12 CBC w/ auto diff HCT % 34.1 44.9 33.1 Low FINAL Vinicio Levy B&Whole Blood [facility] (AND), [address] #[facility] [address] 08/12 CBC w/ auto diff MCV fL 79.4 94.8 89.9 FINAL [facility]&Whole Blood [facility] (AND), [address] [place], [place] [id number] 08/12 CBC w/ auto diff MCH pg 25.6 32.2 28.3 FINAL [facility]&Whole Blood [facility] (AND), [facility] [address] [place] [address] 08/12 CBC w/ auto diff MCHC g/dL 32.2 35.5 31.4 Low FINAL [facility]&Whole Blood [facility] (AND), [facility] [address] [place] [address] 08/12 CBC w/ auto diff RDW-C V, % % 11.7 14.4 13.7 FINAL [facility]&Whole Blood [facility] (AND), [facility] [address] [place] [address] 08/12 CBC w/ auto diff PLT 10*3/u L 182.0 369.0 229.0 FINAL [facility]Whole Blood [facility] (AND), [facility] [address] [place] [address] 08/12 CMP Alkal ine phosp hatas e U/L 42.0 141.0 64 FINAL [facility]inicio [facility] (AND), [facility] [address] [place] [address] 08/12 CMP ALT/S GPT U/L 10.0 47.0 21 FINAL [facility] (AND), [facility] [address] [place] [address] 08/12 CMP AST/S GOT U/L 11.0 38.0 25 FINAL [facility] (AND), [facility] [address] [place] [address] 08/12 CMP Bilir ubin, total MG/DL 0.2 1.6 0.7 FINAL [facility] (AND), [facility] [address] [place] [address] 08/12 CMP BUN MG/DL 7.0 22.0 16 FINAL [facility] (AND), [facility] [address] [place] [address] 08/12 CMP Calci um MG/DL 8.0 10.3 8.9 FINAL [facility] (AND), [facility] [address] [place] [address] 08/12 CMP Chlor cristy mmol/L 98.0 108.0 100 FINAL [facility] (AND), [facility] [address] [place] [address] 08/12 CMP Creat inine MG/DL 0.6 1.2 0.8 FINAL [facility] (AND), [facility] [address] [place] [address] 08/12 CMP GFR non-A frica n Ameri can, estim ated mL/min /1.73m 2 >60.0 FINAL [facility]io [facility] (AND), [address] [place] [address] [address] [place] [address] 08/12 CMP GFR Afric an Ameri can, estim ated mL/min /1.73m 2 >60.0 FINAL [facility] (AND), [address] [place] [address] [address] [place] [address] 08/12 CMP CO2 mmol/L 18.0 33.0 27 FINAL [facility] (AND), [facility] [address] [place] [address] 08/12 CMP Gluco se MG/DL 73.0 118.0 82 FINAL [facility] (AND), [address] [place] [address] [address] [place] [address] 08/12 CMP Potas sium mmol/L 3.6 5.1 4.1 FINAL [facility] (AND), [facility] [address] [place] [address] 08/12 CMP Total prote in G/DL 6.4 8.1 7.0 FINAL [facility] (AND), [facility] [address] [place] [address] 08/12 CMP Sodiu m mmol/L 128.0 145.0 141 FINAL [facility] (AND), [facility] [address] [place] [address] 08/12 CMP Album in G/DL 3.3 5.5 3.9 FINAL [facility] (AND), [facility] [address] [place] [address] 08/12 Hgb A1c % 6.0 FINAL Vinicio Cam Whole Blood [facility] [address] 01/19 Lab Repor t See beer coil cleaner d 02/03 CBC w/ auto diff WBC 10*3/u L 4.0 10.0 6.5 FINAL [facility]inicio Cam B&Whole Blood [facility] (AND), [address] [place] [address] 02/03 CBC w/ auto diff Jennifer # (ANC) 10*3/u L 1.56 6.13 4.48 FINAL [facility]inicio Cam B&Whole Blood [facility] (AND), [address] [place], [place] [id number] 02/03 CBC w/ auto diff LY # 10*3/u L 1.18 3.74 1.23 FINAL [facility]inicio Cam B&Whole Blood [facility] (AND), [address] [place] [id number] 02/03 CBC w/ auto diff MO # 10*3/u L 0.24 0.86 0.47 FINAL Vinicio Cam Blake&Whole Blood [facility] (AND), [address] [place], [place] [id number] 02/03 CBC w/ auto diff EO # 10*3/u lL 0.04 0.36 0.25 FINAL Vinicio Cam Blake&Whole Blood [facility] (AND), [address] [place] [id number] 02/03 CBC w/ auto diff BA # 10*3/u L 0.01 0.08 0.04 FINAL Vinicio Cam B&Whole Blood [facility] (AND), [address] [place] [id number] 02/03 CBC w/ auto diff Jennifer % % 34.0 71.1 69.2 FINAL Vinicio Cam B&Whole Blood [facility] (AND), [address] [place] [id number] 02/03 CBC w/ auto diff LY % % 19.3 51.7 19.0 Low FINAL Vinicio Levy B&Whole Blood [facility] (AND), [address] [place] [id number] 02/03 CBC w/ auto diff MO % % 4.7 12.5 7.3 FINAL [facility]inicio Levy B&Whole Blood [facility] (AND), [address] [place] [id number] 02/03 CBC w/ auto diff EO % % 0.7 5.8 3.9 FINAL [facility]&Whole Blood [facility] (AND), [address] [place] [address] 02/03 CBC w/ auto diff BA % % 0.1 1.2 0.6 FINAL [facility]&Whole Blood [facility] (AND), [address] [place] [address] 02/03 CBC w/ auto diff RBC 10*6/u L 3.93 5.22 4.20 FINAL [facility]&Whole Blood [facility] (AND), [facility] [address] [place] [address] 02/03 CBC w/ auto diff HGB g/dL 11.2 15.7 11.9 FINAL [facility]&Whole Blood [facility] (AND), [address] [place] [address] [address] [place] [address] 02/03 CBC w/ auto diff HCT % 34.1 44.9 38.1 FINAL [facility]&Whole Blood [facility] (AND), [facility] [address] [place] [address] 02/03 CBC w/ auto diff MCV fL 79.4 94.8 90.7 FINAL [facility]&Whole Blood [facility] (AND), [facility] [address] [place] [address] 02/03 CBC w/ auto diff MCH pg 25.6 32.2 28.3 FINAL [facility]&Whole Blood [facility] (AND), [facility] [address] [place] [address] 02/03 CBC w/ auto diff MCHC g/dL 32.2 35.5 31.2 Low FINAL [facility]&Whole Blood [facility] (AND), [facility] [address] [place] [address] 02/03 CBC w/ auto diff RDW-C V, % % 11.7 14.4 14.1 FINAL [facility]&Whole Blood [facility] (AND), [facility] [address] [place] [address] 02/03 CBC w/ auto diff PLT 10*3/u L 182.0 369.0 173.0 Low FINAL [facility]&Whole Blood [facility] (AND), [facility] [address] [place] [address] 03/17 Lab Repor t See beer coil cleaner d 02/02 CMP-C CH Sodiu m mmol/L 136.0 145.0 140 FINAL [facility], [place] [address] 02/02 CMP-C [facility] Potas sium mmol/L 3.5 5.1 4.5 FINAL [facility], [place] [address] 02/02 CMP-C [facility] Chlor cristy mmol/L 98.0 107.0 103 FINAL [facility], [place] [address] 02/02 CMP-C [facility] CO2 mmol/L 20.0 31.0 28 FINAL [facility], [place] [address] 02/02 CMP-C [facility] Anion gap, mmol/ L mmol/L 4.0 15.0 9 FINAL [facility], [place] [address] 02/02 CMP-C [facility] BUN mg/dL 9.0 23.0 20 FINAL [facility], [place] [address] 02/02 CMP-C [facility] Creat inine mg/dL 0.5 0.8 0.87 High FINAL [facility], [place] [address] 02/02 [facility] BUN/C reati nine ratio 23 FINAL [facility], [place] [address] 02/02 CMP-C [facility] Gluco se mg/dL 65.0 106.0 100 FINAL [facility], [place] [address] 02/02 CMP-C [facility] Calci um mg/dL 8.3 10.6 9.3 FINAL [facility], [place] [address] 02/02 CMP-C [facility] Album in gm/dL 3.4 5.0 4.1 FINAL [facility], [place] [address] 02/02 CMP-C [facility] Total prote in gm/dL 5.7 8.2 6.7 FINAL [facility], [place] [address] 02/02 CMP-C [facility] Alkal ine phosp hatas e unit/L 46.0 116.0 87 FINAL [facility], [place] [address] 02/02 CMP-C [facility] ALT/S GPT unit/L 21 FINAL [facility], [place] [address] 02/02 CMP-C [facility] AST/S GOT unit/L 22 FINAL [facility] [place] [address] 02/02 [facility] Bilir ubin, total mg/dL 0.1 1.2 0.4 FINAL [facility] [place] [address] 02/02 [facility] Globu sandhya gm/dL 2.6 FINAL [facility] [place] [address] 02/02 [facility] A/G ratio 1.0 2.0 2 FINAL [facility] [place] [address] 02/02 [facility] GFR non-A frica n Ameri can, estim ated mL/min /1.73m 2 >60 Estimated GFR Non calculate d using MDRD study equation. FINAL [facility] [place] [address] 02/02 [facility] GFR Afric an Ameri can, estim ated mL/min /1.73m 2 >60 Estimated GFR calculate d using MDRD study equation FINAL [facility] [place] [address] 02/02 CBC w/ auto diff WBC 10*3/u L 4.0 10.0 5.9 FINAL [facility]&Whole Blood [facility] ([facility]), [address], [address] [place] [address] 02/02 CBC w/ auto diff Jennifer # (ANC) 10*3/u L 1.56 6.13 3.82 FINAL [facility]&Whole Blood [facility] ([facility]), [address], [address] [place] [address] 02/02 CBC w/ auto diff LY # 10*3/u L 1.18 3.74 1.33 FINAL [facility]&Whole Blood [facility] (T), [address], [address] [place] [address] 02/02 CBC w/ auto diff MO # 10*3/u L 0.24 0.86 0.45 FINAL [facility]&Whole Blood [facility] (T), [address], [address] [place] [address] 02/02 CBC w/ auto diff EO # 10*3/u lL 0.04 0.36 0.28 FINAL [facility]&Whole Blood [facility] ([facility]), [address], [address] [place] [address] 02/02 CBC w/ auto diff BA # 10*3/u L 0.01 0.08 0.02 FINAL [facility]io [facility] B&[facility] ([facility]), [address], [address] [place] [address] 02/02 CBC w/ auto diff Jennifer % % 34.0 71.1 64.9 FINAL Vinicio Levy B&Whole Blood [facility] ([facility]), [address], [address] [place] [address] 02/02 CBC w/ auto diff LY % % 19.3 51.7 22.5 FINAL V[facility]io Levy B&Whole Blood [facility] ([facility]), [address], [address] [place] [address] 02/02 CBC w/ auto diff MO % % 4.7 12.5 7.6 FINAL [facility]io Levy B&Whole Blood [facility] ([facility]), [address], [address] [place] [address] 02/02 CBC w/ auto diff EO % % 0.7 5.8 4.7 FINAL [facility]io Levy B&Whole Blood [facility] ([facility]), [address], [address] [place] [address] 02/02 CBC w/ auto diff BA % % 0.1 1.2 0.3 FINAL V[facility]io Levy B&Whole Blood [facility] ([facility]), [address], [address] [place] [address] 02/02 CBC w/ auto diff RBC 10*6/u L 3.93 5.22 4.11 FINAL Vinicio Levy B&Whole Blood [facility] ([facility]), [address], [address] [place] [address] 02/02 CBC w/ auto diff HGB g/dL 11.2 15.7 11.4 FINAL Vinicio Levy B&Whole Blood [facility] ([facility]), [address], [address] [place] [address] 02/02 CBC w/ auto diff HCT % 34.1 44.9 36.6 FINAL [facility]io Levy B&Whole Blood [facility] ([facility]), [address], [address] [place] [address] 02/02 CBC w/ auto diff MCV fL 79.4 94.8 89.1 FINAL Vinicio Levy B&Whole Blood [facility] ([facility]), [address], [address] [place] [address] 02/02 CBC w/ auto diff MCH pg 25.6 32.2 27.7 FINAL Vinicio Levy B&Whole Blood [facility] ([facility]), [address], [address] [place] [address] 02/02 CBC w/ auto diff MCHC g/dL 32.2 35.5 31.1 Low FINAL Vinicio Cam B&Whole Blood [facility] (T), [address], [address] [place] [address] 02/02 CBC w/ auto diff RDW-C V, % % 11.7 14.4 14.9 High FINAL Vniicio Cam B&Whole Blood [facility] (T), [address], [address] [place] [address] 02/02 CBC w/ auto diff PLT 10*3/u L 182.0 369.0 241.0 FINAL Vinicio Cam B&Whole Blood [facility] (T), [address], [address] [place] [address] 02/02 LDH unit/L 120.0 246.0 207 FINAL [facility] [place] [address] 04/14 Lab Repor t See beer coil cleaner d 06/25 Lab Repor t See beer coil cleaner d 02/01 CMP - Core Lab Album in g/dL 3.4 5.0 3.9 FINAL [facility] ([facility]), [address] [place] [address] 02/01 CMP - Core Lab Alkal ine phosp hatas e U/L 46.0 116.0 92 FINAL V[facility]io [facility] ([facility]), [address] [place] [address] 02/01 CMP - Core Lab ALT/S GPT U/L 10.0 49.0 25 FINAL [facility] ([facility]), [address] [place] [address] 02/01 CMP - Core Lab AST/S GOT U/L 0.0 34.0 23 FINAL Vinicio [facility] ([facility]), [address] [place], [place] [id number] 02/01 CMP - Core Lab Calci um mg/dL 8.7 10.4 9.4 FINAL [facility] ([facility]), [address] [place] [address] 02/01 CMP - Core Lab Chlor cristy mmol/L 98.0 107.0 104 FINAL [facility] ([facility]), [address] [place] [address] 02/01 CMP - Core Lab CO2 mmol/L 20.0 31.0 28.3 FINAL [facility] ([facility]), [address] [place] [address] 02/01 CMP - Core Lab Creat inine mg/dL 0.5 0.8 0.72 FINAL Vinicio [facility] ([facility]), [address] [place] [address] 02/01 CMP - Core Lab GFR non-A frica n Ameri can, estim ated mL/min /1.73m >60.0 FINAL [facility] ([facility]), [address] [place] [address] 02/01 CMP - Core Lab GFR Afric an Ameri can, estim ated mL/min /1.73m >60.0 FINAL [facility] ([facility]), [address] [place] [address] 02/01 CMP - Core Lab Gluco se mg/dL 74.0 106.0 96 FINAL [facility] ([facility]), [address] [place] [address] 02/01 CMP - Core Lab Potas sium mmol/L 3.5 5.1 4.6 FINAL [facility] ([facility]), [address] [place] [address] 02/01 CMP - Core Lab Sodiu m mmol/L 136.0 145.0 140 FINAL [facility] ([facility]), [address] [place] [address] 02/01 CMP - Core Lab Anion gap, mmol/ L mmol/L 4.0 15.0 7.7 FINAL [facility] ([facility]), [address] [place] [address] 02/01 CMP - Core Lab Bilir ubin, total mg/dL 0.3 1.2 0.4 FINAL Vinicio [facility] ([facility]), [address] [place] [address] 02/01 CMP - Core Lab Total prote in g/dL 5.7 8.2 6.6 FINAL Vinicio [facility] S&[facility] ([facility]), [address] [place] [address] 02/01 CMP - Core Lab A/G ratio 1.0 2.0 1.4 FINAL Vinicio [facility] ([facility]), [address] [place] [address] 02/01 CMP - Core Lab BUN mg/dL 9.0 23.0 18 FINAL Vinicio [facility] ([facility]), [address] [place] [address] 02/01 CMP - Core Lab BUN/C reati nine ratio 0.0 25.0 25.0 FINAL [facility] ([facility]), [address] [place] [address] 02/01 LDH U/L 120.0 246.0 204 FINAL Vinicio [facility] ([facility]), [address] [place] [address] 02/01 CBC w/ auto diff WBC 10*3/u L 4.0 10.0 6.1 FINAL Vinicio Levy &Whole Blood [facility] ([facility]), [address] [place] [address] 02/01 CBC w/ auto diff Jennifer # (ANC) 10*3/u L 1.56 6.13 4.00 FINAL Vinicio Levy B&Whole Blood [facility] ([facility]), [address], [address] [place] [address] 02/01 CBC w/ auto diff LY # 10*3/u L 1.18 3.74 1.35 FINAL Vinicio [facility] B&Whole Blood [facility] ([facility]), [address], [address] [place] [address] 02/01 CBC w/ auto diff MO # 10*3/u L 0.24 0.86 0.46 FINAL Vinicio [facility] B&Whole Blood [facility] ([facility]), [address], [address] [place] [address] 02/01 CBC w/ auto diff EO # 10*3/u lL 0.04 0.36 0.25 FINAL Vinicio Levy B&Whole Blood [facility] ([facility]), [address], [address] [place] [address] 02/01 CBC w/ auto diff BA # 10*3/u L 0.01 0.08 0.02 FINAL Vinicio Levy B&Whole Blood [facility] ([facility]), [address], [address] [place] [address] 02/01 CBC w/ auto diff Jennifer % % 34.0 71.1 65.8 FINAL Vinicio Levy B&Whole Blood [facility] ([facility]), [address], [address] [place] [address] 02/01 CBC w/ auto diff LY % % 19.3 51.7 22.2 FINAL Vinicio Levy B&Whole Blood [facility] ([facility]), [address], [address] [place] [address] 02/01 CBC w/ auto diff MO % % 4.7 12.5 7.6 FINAL Vinicio Levy B&Whole Blood [facility] ([facility]), [address], [address] [place] [address] 02/01 CBC w/ auto diff EO % % 0.7 5.8 4.1 FINAL Vinicio Levy B&Whole Blood [facility] ([facility]), [address], [address] [place] [address] 02/01 CBC w/ auto diff BA % % 0.1 1.2 0.3 FINAL Vinicio Levy B&Whole Blood [facility] ([facility]), [address], [address] [place] [address] 02/01 CBC w/ auto diff RBC 10*6/u L 3.93 5.22 3.84 Low FINAL Vinicio Levy B&Whole Blood [facility] ([facility]), [address], [address] [place] [address] 02/01 CBC w/ auto diff HGB g/dL 11.2 15.7 10.9 Low FINAL Vinicio Levy B&Whole Blood [facility] ([facility]), [address], [address] [place] [address] 02/01 CBC w/ auto diff HCT % 34.1 44.9 34.7 FINAL Vinicio Levy B&Whole Blood [facility] ([facility]), [address], [address] [place] [address] 02/01 CBC w/ auto diff MCV fL 79.4 94.8 90.4 FINAL Vinicio [facility] B&Whole Blood [facility] ([facility]), [address], [address] [place] [address] 02/01 CBC w/ auto diff MCH pg 25.6 32.2 28.4 FINAL Vinicio [facility] B&Whole Blood [facility] ([facility]), [address], [address] [place] [address] 02/01 CBC w/ auto diff MCHC g/dL 32.2 35.5 31.4 Low FINAL Vinicio [facility] B&Whole Blood [facility] (T), [address], [address] [place] [address] 02/01 CBC w/ auto diff RDW-C V, % % 11.7 14.4 14.2 FINAL Vinicio [facility] B&Whole Blood [facility] ([facility]), [address], [address] [place] [address] 02/01 CBC w/ auto diff PLT 10*3/u L 182.0 369.0 243.0 FINAL Vinicio [facility] B&Whole Blood [facility] ([facility]), [address], [address] [place] [address] 02/26 LDH U/L 120.0 246.0 189 FINAL Vinicio [facility] ([facility]), [facility] [address] 02/26 CMP - Core Lab Sodiu m mmol/L 136.0 145.0 141 FINAL Vinicio [facility] ([facility]), [address] [place] [address] [place] [address] 02/26 CMP - Core Lab Potas sium mmol/L 3.5 5.1 4.7 FINAL Vinicio [facility] ([facility]), [address] [place] [address] 02/26 CMP - Core Lab Chlor cristy mmol/L 98.0 107.0 108 High FINAL Vinicio [facility] ([facility]), [address] [place] [address] [place] [address] 02/26 CMP - Core Lab CO2 mmol/L 20.0 31.0 25.2 FINAL Vinicio Levy [facility] ([facility]), [address] [place] [address] 02/26 CMP - Core Lab Anion gap, mmol/ L mmol/L 4.0 15.0 7.8 FINAL Vinicio [facility] ([facility]), [address] [place] [address] 02/26 CMP - Core Lab BUN mg/dL 9.0 23.0 16 FINAL Vinicio [facility] ([facility]), [address] [place] [address] 02/26 CMP - Core Lab BUN/C reati nine ratio 0.0 25.0 18.8 FINAL Vinicio [facility] ([facility]), [address] [place] [address] 02/26 CMP - Core Lab Creat inine mg/dL 0.5 0.8 0.85 High FINAL Vinicio [facility] ([facility]), [address] [place] [address] 02/26 CMP - Core Lab GFR non-A frica n Ameri can, estim ated mL/min /1.73m >60.0 FINAL Vinicio [facility] ([facility]), [address] [place] [address] 02/26 CMP - Core Lab GFR Afric an Ameri can, estim ated mL/min /1.73m >60.0 FINAL Vinicio [facility] ([facility]), [address] [place] [address] [place] [address] 02/26 CMP - Core Lab Gluco se mg/dL 74.0 106.0 96 FINAL Vinicio [facility] ([facility]), [address] [place] [address] [place] [address] 02/26 CMP - Core Lab Calci um mg/dL 8.7 10.6 9.2 FINAL Vinicio [facility] ([facility]), [address] [place] [address] 02/26 CMP - Core Lab Album in g/dL 3.4 5.0 3.7 FINAL Vinicio [facility] ([facility]), [address] [place] [address] [place] [address] 02/26 CMP - Core Lab Total prote in g/dL 5.7 8.2 6.8 FINAL Vinicio [facility] ([facility]), [address] [place] [address] 02/26 CMP - Core Lab A/G ratio 1.0 2.0 1.2 FINAL Vinicio [facility] ([facility]), [address] [place] [address] 02/26 CMP - Core Lab Alkal ine phosp hatas e U/L 46.0 116.0 94 FINAL Vinicio [facility] ([facility]), [address] [place] [address] 02/26 CMP - Core Lab ALT/S GPT U/L 10.0 49.0 28 FINAL Vinicio [facility] ([facility]), [address] [place] [address] 02/26 CMP - Core Lab AST/S GOT U/L 0.0 34.0 22 FINAL Vinicio [facility] ([facility]), [address] [place] [address] 02/26 CMP - Core Lab Bilir ubin, total mg/dL 0.3 1.2 0.3 FINAL Vinicio [facility] ([facility]), [address] [place] [address] 02/26 CBC w/ auto diff WBC 10*3/u L 4.0 10.0 6.5 FINAL Vinicio [facility] ([facility]), [address], [address] [place] [address] 02/26 CBC w/ auto diff Jennifer # (ANC) 10*3/u L 1.56 6.13 4.17 FINAL Vinicio [facility] ([facility]), [address], [address] [facility] [address] 02/26 CBC w/ auto diff LY # 10*3/u L 1.18 3.74 1.55 FINAL Vinicio [facility] ([facility]), [address], [address] [facility] [address] 02/26 CBC w/ auto diff MO # 10*3/u L 0.24 0.86 0.48 FINAL Vinicio [facility] ([facility]), [address], [address] [place] [address] 02/26 CBC w/ auto diff EO # 10*3/u lL 0.04 0.36 0.29 FINAL [facility]inicio [facility] [address], [address] [place] [address] 02/26 CBC w/ auto diff BA # 10*3/u L 0.01 0.08 0.04 FINAL Vinicio [facility] ([facility]), [address], [address] [place] [address] 02/26 CBC w/ auto diff Jennifer % % 34.0 71.1 63.9 FINAL Vinicio [facility] ([facility]), [address], [address] [place] [address] 02/26 CBC w/ auto diff LY % % 19.3 51.7 23.7 FINAL Vinicio [facility] ([facility]), [address], [address] [place] [address] 02/26 CBC w/ auto diff MO % % 4.7 12.5 7.4 FINAL Vinicio [facility] ([facility]), [address], [address] [place] [address] 02/26 CBC w/ auto diff EO % % 0.7 5.8 4.4 FINAL Vinicio [facility] ([facility]), [address], [address] [place] [address] 02/26 CBC w/ auto diff BA % % 0.1 1.2 0.6 FINAL Vinicio [facility] ([facility]), [address], [address] [place] [address] 02/26 CBC w/ auto diff RBC 10*6/u L 3.93 5.22 3.95 FINAL Vinicio [facility] ([facility]), [address], [address] [place] [address] 02/26 CBC w/ auto diff HGB g/dL 11.2 15.7 10.9 Low FINAL Vinicio [facility] ([facility]), [address], [address] [place] [address] 02/26 CBC w/ auto diff HCT % 34.1 44.9 34.9 FINAL Vinicio [facility] ([facility]), [address], [address] [facility] [address] 02/26 CBC w/ auto diff MCV fL 79.4 94.8 88.4 FINAL Vinicio [facility] ([facility]), [address], [address] [facility] [address] 02/26 CBC w/ auto diff MCH pg 25.6 32.2 27.6 FINAL Vinicio [facility] ([facility]), [address], [address] [facility] [address] 02/26 CBC w/ auto diff MCHC g/dL 32.2 35.5 31.2 Low FINAL Vinicio [facility] ([facility]), [address], [address] [place] [address] 02/26 CBC w/ auto diff RDW-C V, % % 11.7 14.4 14.1 FINAL Vinicio [facility] ([facility]), [address], [address] [facility] [address] 02/26 CBC w/ auto diff PLT 10*3/u L 182.0 369.0 258.0 FINAL Vinicio [facility] ([facility]), [address], [address] [place] [address] Medications Date Name Route Dose Frequency Instructions [...] 2 times per day 017 active 017 Lisinopril-[place] chlorothiazide Oral 20 mg-12.5 mg Oral 2.0 1 2 tabs daily 017 active Problems Diagnosis Status Date of Diagnosi s Diabetes mellitus type 2 (disorder) Active Hypertensive disorder, systemic arterial (disord er) Active Primary hypercholesterolemia (disorder) Active History of malignant lymphoma (situation) Active Diffuse non-Hodgkin's lymphoma, 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 Vital Signs Date Type Value 04/09/2017 Body Temperature 99.00 04/09/2017 Heart Beat 72.00 04/09/2017 Respiratory Rate 16.00 04/09/2017 Intravascular Systolic 130 04/09/2017 Intravascular Diastolic 80 04/09/2017 BSA 1.94 04/09/2017 Weight 176.00 04/09/2017 Height 67.00 04/09/2017 BMI 27.57 04/09/2017 Pain Scale 0.00 06/03/2017 Height 67.00 [...] Systolic 138 03/17/2018 Intravascular Diastolic 76 06/23/2018 Body Temperature 98.00 06/23/2018 Respiratory Rate 16.00 06/23/2018 Intravascular Systolic 146 06/23/2018 Intravascular Diastolic 82 06/23/2018 Pain Scale 0.00 06/23/2018 Weight 177.00 06/23/2018 Height 67.00 06/23/2018 BMI 27.72 06/23/2018 BSA 1.95 08/11/2018 BSA 1.95 08/11/2018 Body Temperature 98.00 08/11/2018 BMI 27.74 08/11/2018 Height 67.00 08/11/2018 Weight 177.10 08/11/2018 Pain Scale 0.00 08/11/2018 Intravascular Systolic 130 08/11/2018 Intravascular Diastolic 72 08/11/2018 Respiratory Rate 14.00 08/11/2018 Heart Beat 70.00 10/13/2018 BSA 1.96 10/13/2018 BMI 28.14 10/13/2018 Height 67.00 10/13/2018 Weight 179.70 10/13/2018 Body Temperature 97.90 10/13/2018 Intravascular Systolic 127 10/13/2018 Intravascular Diastolic 60 10/13/2018 Respiratory Rate 15.00 10/13/2018 Heart Beat 68.00 10/13/2018 Pain Scale 0.00 11/24/2018 Body Temperature 98.30 11/24/2018 Heart Beat 65.00 11/24/2018 Oxygen Saturation 94.00 11/24/2018 Intravascular Systolic 114 11/24/2018 Intravascular Diastolic 65 11/24/2018 Pain Scale 0.00 11/24/2018 Weight 179.10 11/24/2018 Height 67.00 11/24/2018 BMI 28.05 11/24/2018 BSA 1.96 01/19/2019 BSA 1.96 01/19/2019 Body Temperature 98.40 [...] Print Location: Unknown Date/Time Printed: 11/03/2024 10:43 ([facility]) Patient: WENDY BLACKMAN Sex: Female : [...] IRRIGAJ IMPLNTD VENOUS ACCESS DRUG DELIVERY SYST (55344) Entered By Sophy Cho RN; Incident to Michael Shaikh MD ;Missing information: Billing problem(s) * Nurse Note for: 24-NOV-18 [facility] Nurse Note Print Location: Unknown Date/Time Printed: 11/03/2024 10:43 ([facility]) Patient: WENDY BLACKMAN Sex: Female : [...] IRRIGAJ IMPLNTD VENOUS ACCESS DRUG DELIVERY SYST ([id number]) Entered By Sophy Cho RN; Incident to Michael Shaikh MD ;Missing information: Billing problem(s) * Nurse Note for: 13-OCT-18 [facility] Nurse Note Print Location: Unknown Date/Time Printed: 11/03/2024 10:43 ([facility]) Patient: WENDY BLACKMAN Sex: Female : [...] Redness,No Swelling,No Tenderness,No Bruising, Entered By Sophy hCo RN on 14:15 Procedures : Port flush; Selected Billing Code(s): IRRIGAJ IMPLNTD VENOUS ACCESS DRUG DELIVERY SYST (75182) Entered By Sophy Cho RN; Incident to Michael Shaikh MD ;Missing information: Billing problem(s) * Nurse Note for: 11-AUG-18 [facility] Nurse Note Print Location: Unknown Date/Time Printed: 11/03/2024 10:43 ([facility]) Patient: WENDY BLACKMAN Sex: Female : [...] Aseptic Technique, Lab Drawn-No, Entered By Sophy hCo RN on : IV De-Access : IV Access Method-CVC - Powerport, IV Access Type-Vega, Line Flushed-10ml NS,500u Heparin, Catheter-Dc'd, Site Care-Bandage Applied,Blood Return Noted During Administration,Therapy Completed Without Adverse Event,Port Deaccessed, Site Assess-Line Intact,No Redness,No Swelling,No Tenderness,No Bruising, Entered By Sophy Cho RN on : Procedures : Port flush; Selected Billing Code(s): IRRIGAJ IMPLNTD VENOUS ACCESS DRUG DELIVERY SYST ([id number]) Entered By Sophy Cho RN; Incident to Michael Shaikh MD ;Missing information: Billing problem(s) * Nurse Note for: 23-JUN-18 [facility] Nurse Note Print Location: Unknown Date/Time Printed: 11/03/2024 10:43 ([facility]) Patient: WENDY BLACKMAN Sex: Female : [...] IRRIGAJ IMPLNTD VENOUS ACCESS DRUG DELIVERY SYST ([id number]) Entered By Sophy Cho RN; Incident to Michael Shaikh MD ;Missing information: Billing problem(s) * Nurse Note for: 17-MAR-18 [facility] Nurse Note Print Location: Unknown Date/Time Printed: 11/03/2024 10:43 ([facility]) Patient: WENDY BLACKMAN Sex: Female : [...] IRRIGAJ IMPLNTD VENOUS ACCESS DRUG DELIVERY SYST ([id number]) Entered By Sophy Cho RN; Incident to Michael Shaikh MD ;Missing information: Billing problem(s) * Nurse Note for: 20-JAN-18 [facility] Nurse Note Print Location: Unknown Date/Time Printed: 11/03/2024 10:43 ([facility]) Patient: WENDY BLACKMAN Sex: Female : [...] IRRIGAJ IMPLNTD VENOUS ACCESS DRUG DELIVERY SYST ([id number]) Entered By Sophy Cho RN; Incident to Michael Shaikh MD * Nurse Note for: 02-DEC-17 [facility] Nurse Note Print Location: Unknown Date/Time Printed: 11/03/2024 10:43 ([facility]) Patient: WENDY BLACKMAN Sex: Female : [...] IRRIGAJ IMPLNTD VENOUS ACCESS DRUG DELIVERY SYST ([id number]) Entered By Sophy Cho RN; Incident to Michael Shaikh MD * Nurse Note for: 07-OCT-17 [facility] Nurse Note Print Location: Unknown Date/Time Printed: 11/03/2024 10:43 ([facility]) Patient: WENDY BLACKMAN Sex: Female : [...] lymphoma (situation) *; Selected Billing [facility](s[facility]ST ([id number]) Entered By Sophy Cho RN; Incident to Michael Shaikh MD * Nurse Note for: 12-AUG-17 [facility] Nurse Note Print Location: Unknown Date/Time Printed: 11/03/2024 10:43 ([facility]) Patient: WENDY BLACKMAN Sex: Female : [...] . Entered By Emily Sanchez RN on 14: IV Access/Lab Draw : IV Access-VAD - Single, Needle Type-Vega, Needle Size-20 Gauge, Needle Length-1 inch, Access Site-Left Chest, Flush-10ml NS, Site Assess List-Blood Return,No Redness,No Swelling,No Tenderness,No Bruising, Site Care Checklist-Aseptic Technique, Lab Drawn-Yes, Access Attempts-1 time(s), Entered By Emily Sanchez RN on 14: IV De-Access : IV Access Method-VAD - Single, IV Access Type-Vega, Line Flushed-20ml NS,500u Heparin, Catheter-Dc'd, Site Care-Bandage Applied,Port Deaccessed, Site Assess- Line Intact,No Redness,No Swelling,No Tenderness,No Bruising, Entered By Emily Sanchez RN on :22 Procedures : Blood draw via port - Associated Problem(s): History of malignant lymphoma (situation) *; Selected Billing Code(s): COLLECT BLOOD FROM IMPLANT VENOUS ACCESS DEVICE ([id number]) Entered By Emily Sanchez RN; Incident to Vinicio Levy MD * Nurse Note for: 03-JUN-17 [facility] Nurse Note Print Location: Unknown Date/Time Printed: 11/03/2024 10:43 ([facility]) Patient: WENDY BLACKMAN Sex: Female : [...] IRRIGAJ IMPLNTD VENOUS ACCESS DRUG DELIVERY SYST ([id number]) Entered By Viktoriya Benavides RN; Incident to Michael Shaikh MD * Nurse Note for: 09-APR-17 [facility] Nurse Note Print Location: Unknown Date/Time Printed: 11/03/2024 10:43 ([facility]) Patient: WENDY BLACKMAN Sex: Female : [...] IRRIGAJ IMPLNTD VENOUS ACCESS DRUG DELIVERY SYST ([id number]) Entered By Sherrill Jarrell RN; Incident to Doug Hinds MD
--- NOTE | 2024-11-03 10:45 | ECG_ITS ---
APPROVED REPORT Exam: Resting ECG HR:81 bpm ECG Measurements Heart Rate 81 AXES NC 192 P 73 QRSd 89 QRS 12 QT 357 T 65 QTc 394 Conclusion SINUS RHYTHM WITH SINUS ARRHYTHMIA NORMAL ECG UNCONFIRMED REPORT Electronically signed by : Catrachito Downing MD 11/04/2024 08:43:47
[2024-11-03 10:49] LABS: Microscopic, Urine URINE MICROSCOPIC (MICROSCOPIC)
--- NOTE | 2024-11-03 11:02 | XR_ITS ---
FINAL REPORT TECHNIQUE: Chest PA & Lateral CLINICAL HISTORY: Shortness of breath COMPARISON: None FINDINGS: 2 views of the chest were performed. The heart size is normal. The mediastinum is within normal limits. There is elevation of the right hemidiaphragm. There is no acute cardiopulmonary process. There are no pleural effusions. There is no pneumothorax. The bony thorax appears intact. IMPRESSION: No acute cardiopulmonary process. Reviewed, Interpreted and Dictated by Dilshad Weaver MD Transcribed by Larisa Rojas Authenticated and [facility]
[2024-11-03 11:07] LABS: Appearance,Urine CLEAR (Clear); Basophils # 0.1 K/mm3 (0-0.2); Bilirubin,Urine Negative (Negative); Blood, Urine Negative (Negative); Color,Urine YELLOW (Yellow); Eosinophils # 0.2 Kmm3 (0.0-0.4); Eosinophils % 2.3 % (0.1-12.0); Glucose,Urine (UA) Negative (Negative); Hematocrit 38.6 % (37.0-47.0); Hemoglobin 11.7 g/dL (12.2-16.2); Immature Granulocytes # 0.03 10^3uL; Immature Granulocytes % 0.4 %; Ketones,Urine Negative (Negative); Leukocyte Esterase,Urine TRACE (Negative); Lymphocytes # 1.8 K/mm3 (0.7-4.5); Mean Corpuscular HGB Conc 30.3 g/dL (31.8-35.4); Mean Corpuscular Hemoglobin 27.5 pg (27.0-31.2); Mean Corpuscular Volume 90.6 fl (81-99); Mean Platelet Volume 10.2 fl (7.4-10.4); Monocytes # 0.4 K/mm3 (0.1-1.0); Monocytes % 5.5 % (1.7-9.3); Neutrophils # 5.4 K/mm3 (1.8-7.8); Neutrophils % 67.8 % (37.0-80.0); Nitrate,Urine Negative (Negative); Nucleated Red Blood Cells # 0 10^3/uL; Nucleated Red Blood Cells % 0 %; Platelet Count 320 K/mm3 (142-424); Protein,Urine Negative (Negative); Red Blood Count 4.26 M/mm3 (4.20-5.40); Red Cell Distribution Width-SD 46.4 fL; Specific Gravity, Urine 1.025 (1.005-1.030); Urobilinogen,Urine 0.2 EU/dl (0.2)
[2024-11-03 11:26] LABS: Bacteria,Urine 2+ /lpf
[2024-11-03 11:55] LABS: Hemoglobin A1C 6.2 % (4.0-6.0)
[2024-11-03 11:56] LABS: Albumin Level 4.7 g/dl (3.5-5.0); Chloride 104 mmol/L (98-107); Potassium 4.4 mmoL/L (3.5-5.1); Sodium 138 mmol/L (136-145)
[2024-11-03 11:58] LABS: Alanine Aminotransferase 34 U/L (12-78); Aspartate Amino Transferase 35 U/L (14-36); Blood Urea Nitrogen 26 mg/dl (7-17); Estimated Glomerular Filt Rate 48 ml/min (>60); GFR (African American) 58 ML/MIN (>60)
[2024-11-03 11:59] LABS: Albumin/Globulin Ratio 1.6 (1.1-1.8); Alkaline Phosphatase 82 U/L (38-126); Anion Gap 12.4 mEq/L (5-15); Bilirubin,Total 0.4 mg/dl (0.2-1.3); Calcium 9.5 mg/dl (8.4-10.2); Carbon Dioxide 26 mmol/L (22.0-30.0); Globulin 2.9 g/dL (1.3-3.2); Glucose 107 mg/dl (74-100); Phosphorous 4.4 mg/dl (2.5-4.5); Total Protein,Serum 7.6 g/dl (6.3-8.2)
== END 2024-11-03 23:59 | disposition home or self-care (01) ==
LOC: RT 10:37
PROVIDERS: PCP Family Medicine; Visit Provider Family Medicine
DX: Z01.810 Encounter for preprocedural cardiovascular examination (principal); Z01.811 Encounter for preprocedural respiratory examination; Z01.812 Encounter for preprocedural laboratory examination; I49.8 Other specified cardiac arrhythmias; E11.9 Type 2 diabetes mellitus without complications; I12.9 Hypertensive chronic kidney disease with stage 1 through stage 4 chronic kidney disease, or unspecified chronic kidney disease; N18.31 Chronic kidney disease, stage 3a
CPT/HCPCS: 36415; 71046; 80053; 81001; 83036; 84100; 85025; 87086; 93005